=== PATIENT | male | born 1940 | race Caucasian/White ===

== ENCOUNTER 2019-09-23 13:19 | Outpatient (RCR) | payer MEDICARE, OTHER, SELFPAY ==
[2019-09-23 15:08] LABS: Immunofixation, Serum NR
[2019-09-23 15:14] LABS: Basophils % 1.2 %; Eosinophils # 0.2 10^3/uL (0.0-0.8); Eosinophils % 8.1 %; Hematocrit 28.7 % (42.0-52.0); Hemoglobin 8.8 g/dL (11.7-16.6); Lymphocytes % 39.5 %; Mean Corpuscular HGB Conc 30.7 g/dL (30.0-36.0); Mean Corpuscular Volume 91.4 fL (80-94); Mean Platelet Volume 10.5 fL (7.4-10.4); Monocytes # 0.3 10^3/uL (0.2-0.9); Monocytes % 11.7 %; Neutrophils % 39.1 %; Nucleated Red Blood Cells % 0 %; Platelet Count 99 10^3/cmm (130-400); Red Blood Count 3.14 10^6/uL (4.1-5.3); Red Cell Distribution Width 15.1 % (12.1-15.1); White Blood Count 2.5 10^3/uL (4.0-10.0)
[2019-09-23 15:54] LABS: Alanine Aminotransferase 16 U/L (0-41); Albumin Level 4.5 g/dL (3.5-5.2); Alkaline Phosphatase 99 IU/L (40-130); Anion Gap 16.8 (5-19); Aspartate Amino Transferase 26 U/L (0-40); Blood Urea Nitrogen 21 mg/dL (8-23); Calcium 9.9 mg/Dl (8.8-10.2); Carbon Dioxide 26 mmol/L (22-29); Chloride 96 mmol/L (98-107); Ferritin 84 ng/mL (30-400); Globulin 2.3 g/dL (1.3-4.6); Glucose 314 mg/dL (74-106); Iron 30 ug/dL (59-158); Lactate Dehydrogenase 143 U/L (135-225); Percent Saturation 11.9 % (20-50); Potassium 4.8 mmol/L (3.5-5.1); Sodium 134 mmol/L (136-145); Total Bilirubin 0.3 mg/dL (0.15-1.2); Total Iron Binding Capacity 252 mg/dL; Total Protein 6.8 g/dL (6.6-8.7); Unsaturated Iron Binding 222 ug/dL (112-347)
[2019-09-23 16:08] LABS: Erythrocyte Sedimentation Rate 71 mm/hr (0-10)
== END 2019-10-22 23:59 | disposition home or self-care (01) ==
LOC: ONCMED 13:19
PROVIDERS: Family Provider Family Medicine; PCP Family Medicine; Visit Provider Internal Medicine Medical Oncology
DX: D50.9 Iron deficiency anemia, unspecified (principal); I11.0 Hypertensive heart disease with heart failure; I50.9 Heart failure, unspecified; E78.5 Hyperlipidemia, unspecified; E11.9 Type 2 diabetes mellitus without complications; I25.10 Atherosclerotic heart disease of native coronary artery without angina pectoris; J44.9 Chronic obstructive pulmonary disease, unspecified; G47.33 Obstructive sleep apnea (adult) (pediatric); K74.60 Unspecified cirrhosis of liver; K76.6 Portal hypertension; I85.10 Secondary esophageal varices without bleeding; F41.8 Other specified anxiety disorders; F43.10 Post-traumatic stress disorder, unspecified; Z87.891 Personal history of nicotine dependence; Z85.828 Personal history of other malignant neoplasm of skin; K43.9 Ventral hernia without obstruction or gangrene
CPT/HCPCS: 36415; 80053; 82728; 83010; 83540; 83550; 83615; 83883; 84155; 84165; 85025; 85045; 85651; 99205

== ENCOUNTER 2019-09-27 08:17 | Emergency (ER) | payer OTHER, SELFPAY ==
[2019-09-27 08:17] VITALS: BP 151/73; PULSE 64; RESP 18; TEMP 36.3; O2SAT 92
[2019-09-27 08:21] VITALS: BP 119/53; PULSE 72; RESP 20; TEMP 36.6; O2SAT 94; BMI 36.6
--- NOTE | 2019-09-27 08:29 | W.ED.FALL ---
HPI - Fall General: Chief Complaint: Fall Stated Complaint: Fall/right knee pain/ams Time Seen by Provider: 09/27/19 08:29 Source: patient and family Mode of arrival: ambulatory Limitations: no limitations History of Present Illness: HPI Narrative: Patient is a 78-year-old male with a history of liver cirrhosis, diabetes and COPD here with his for complaints of a fall that occurred yesterday and some altered mental status; according to the , patient was walking yesterday with 2 pairs of pants on and states his jeans were baggy causing him to trip and fall and land onto his right knee and hip; patient has been ambulatory since the fall but has complained of pain to these areas; states he may have struck his head during the fall but there was no LOC; became concerned when this morning patient was having trouble checking his blood sugars; states he could not remember how to do this MD complaint: fall Onset (ago): day(s) Fall from: standing Fall witnessed: no Place fall occurred: home Loss of consciousness: None Prolonged down time: no Symptoms prior to fall: none Context: tripped/slipped Location of injury: head (possibly) and other (R hip/R knee) Associated symptoms-after fall: Reports confusion (this AM); Denies abdominal pain, chest pain, difficulty walking, headache(s), lightheadedness, neck pain or vertigo Review of Systems Const: Denies: fever or chills Eyes: Denies: change in vision or blurry vision Card: Denies: chest pain, palpitations, irregular heart rhythm, lightheadedness, syncope or shortness of breath on exertion Resp: Denies: shortness of breath, productive cough or pain on inspiration GI: Denies: abdominal pain, nausea, vomiting, heartburn/indigestion or diarrhea : Denies: difficulty urinating or painful urination Musc: Reports: extremity pain (R hip/R knee) and joint pain; Denies: neck pain or back pain Skin/Breast: Denies: rash Neuro: Reports: confusion (this AM); Denies: headache, numbness in extremities, weakness in extremities, changes in sensation, lack of coordination, difficulty walking, frequent falls, dizziness or vertigo PFSH ED PFSH: Statuses (acute, chronic, etc) shown below reflect problem list status as previously entered and may not be historically accurate Social History Smoking and tobacco status: former smoker Physical Exam Const: COMMON NORMALS: no apparent distress and oriented x3 GENERAL APPEARANCE: cooperative NUTRITIONAL APPEARANCE: obese ORIENTATION/CONSCIOUSNESS: Yes awake, Yes oriented to person, Yes oriented to place and Yes oriented to time Neck/C-Spine: COMMON NORMALS: full ROM, no lymphadenopathy, supple and no meningeal signs CERVICAL SPINE: No cervical spine tenderness Chest: COMMONS NORMALS: inspection of chest normal Resp: COMMON NORMALS: normal respiratory effort EFFORT & INSPECTION: Yes able to speak in complete sentences Cardio: COMMON NORMALS: regular rate and regular rhythm RATE: regular rate RHYTHM: regular rhythm GI: INSPECTION: Yes other (chronic severe abdominal distention from cirrhosis-at baseline) Back/Pelvis: COMMON NORMALS: thoracic and lumbar spine normal to inspection Neuro: COMMON NORMALS: oriented x3 SENSORIUM/ORIENTATION: Yes oriented to person, Yes oriented to place and Yes oriented to time MENINGEAL SIGNS: Yes no meningeal signs Course ED course: care was started on patient; Dr. Maria will also evaluate and see patient Vital Signs: Vital signs: Vital Signs Temperature 97.8 F 09/27/19 08:21 Pulse Rate 71 09/27/19 13:07 Respiratory Rate 16 09/27/19 13:07 Blood Pressure 118/44 09/27/19 13:07 Pulse Oximetry 92 09/27/19 13:07 MDM - Fall Lab Data: Labs: Lab Results 09/27/19 09/27/19 09/27/19 Range/Units 08:50 08:50 08:50 WBC 4.7 (4.0-10.0) 10^3/ uL RBC 3.02 L (4.1-5.3) 10^6/u L Hgb 8.4 L (11.7-16.6) g/dL Hct 27.4 L (42.0-52.0) % MCV 90.7 (80-94) fL MCH 27.8 L (28.0-34.0) pg MCHC 30.7 (30.0-36.0) g/dL RDW 14.7 (12.1-15.1) % Plt Count 111 L (130-400) 10^3/c mm MPV 10.5 H (7.4-10.4) fL Neut % (Auto) 54.7 % Lymph % (Auto) 27.0 % Turner % (Auto) 12.6 % Eos % (Auto) 4.7 % Baso % (Auto) 0.4 % Neut # (Auto) 2.6 (1.8-7.7) 10^3/u L Lymph # (Auto) 1.3 (0.8-4.8) 10^3/u L Turner # (Auto) 0.6 (0.2-0.9) 10^3/u L Eos # (Auto) 0.2 (0.0-0.8) 10^3/u L Baso # (Auto) 0.0 (0.0-0.1) 10^3/u L Nucleated RBC % (a uto) 0 % Nucleated RBCs # 0.0 /100WBC PT (10.5-13.3) SECO NDS INR (0.8-1.2) APTT (23.9-36.7) SECO NDS Sodium 133 L (136-145) mmol/L Potassium 5.0 (3.5-5.1) mmol/L Chloride 94 L (98-107) mmol/L Carbon Dioxide 27 (22-29) mmol/L Anion Gap 17.0 (5-19) BUN 28 H (8-23) mg/dL Creatinine 1.8 H (0.7-1.2) mg/dL Glucose 191 H (74-106) mg/dL Lactate (0.5-2.2) mmol/L Calcium 9.9 (8.8-10.2) mg/Dl Total Bilirubin 0.5 (0.15-1.2) mg/dL AST 28 (0-40) U/L ALT 16 (0-41) U/L Alkaline Phosphata se 93 (40-130) IU/L Ammonia 44 (16-60) umol/L Total Protein 7.0 (6.6-8.7) g/dL Albumin 4.6 (3.5-5.2) g/dL Globulin 2.4 (1.3-4.6) g/dL Lipase (13-60) U/L TSH (0.27-4.20) uIU/ mL Urine Color (Yellow) Urine Appearance (CLEAR) Urine pH (5-7) Ur Specific Gravit y (1.005-1.030) Urine Protein (Negative) Urine Glucose (UA) (Normal) Urine Ketones (Negative) Urine Occult Blood (Negative) Urine Nitrate (Negative) Urine Bilirubin (NEGATIVE) Urine Urobilinogen (Negative) mg/dL Ur Leukocyte Sindy ase (Negative) Salicylates (3-10) mg/dL Acetaminophen (10-30) ug/mL Ethyl Alcohol (0-10) mg/dL Serum Ketones (Negative) 09/27/19 09/27/19 09/27/19 Range/Units 08:50 08:50 08:50 WBC (4.0-10.0) 10^3/ uL RBC (4.1-5.3) 10^6/u L Hgb (11.7-16.6) g/dL Hct (42.0-52.0) % MCV (80-94) fL MCH (28.0-34.0) pg MCHC (30.0-36.0) g/dL RDW (12.1-15.1) % Plt Count (130-400) 10^3/c mm MPV (7.4-10.4) fL Neut % (Auto) % Lymph % (Auto) % Turner % (Auto) % Eos % (Auto) % Baso % (Auto) % Neut # (Auto) (1.8-7.7) 10^3/u L Lymph # (Auto) (0.8-4.8) 10^3/u L Turner # (Auto) (0.2-0.9) 10^3/u L Eos # (Auto) (0.0-0.8) 10^3/u L Baso # (Auto) (0.0-0.1) 10^3/u L Nucleated RBC % (a uto) % Nucleated RBCs # /100WBC PT 14.50 H (10.5-13.3) SECO NDS INR 1.09 (0.8-1.2) APTT 33.0 (23.9-36.7) SECO NDS Sodium (136-145) mmol/L Potassium (3.5-5.1) mmol/L Chloride (98-107) mmol/L Carbon Dioxide (22-29) mmol/L Anion Gap (5-19) BUN (8-23) mg/dL Creatinine (0.7-1.2) mg/dL Glucose (74-106) mg/dL Lactate 1.8 (0.5-2.2) mmol/L Calcium (8.8-10.2) mg/Dl Total Bilirubin (0.15-1.2) mg/dL AST (0-40) U/L ALT (0-41) U/L Alkaline Phosphata se (40-130) IU/L Ammonia (16-60) umol/L Total Protein (6.6-8.7) g/dL Albumin (3.5-5.2) g/dL Globulin (1.3-4.6) g/dL Lipase 38 (13-60) U/L TSH (0.27-4.20) uIU/ mL Urine Color (Yellow) Urine Appearance (CLEAR) Urine pH (5-7) Ur Specific Gravit y (1.005-1.030) Urine Protein (Negative) Urine Glucose (UA) (Normal) Urine Ketones (Negative) Urine Occult Blood (Negative) Urine Nitrate (Negative) Urine Bilirubin (NEGATIVE) Urine Urobilinogen (Negative) mg/dL Ur Leukocyte Sindy ase (Negative) Salicylates (3-10) mg/dL Acetaminophen (10-30) ug/mL Ethyl Alcohol (0-10) mg/dL Serum Ketones (Negative) 09/27/19 09/27/19 09/27/19 Range/Units 08:50 08:50 10:25 WBC (4.0-10.0) 10^3/ uL RBC (4.1-5.3) 10^6/u L Hgb (11.7-16.6) g/dL Hct (42.0-52.0) % MCV (80-94) fL MCH (28.0-34.0) pg MCHC (30.0-36.0) g/dL RDW (12.1-15.1) % Plt Count (130-400) 10^3/c mm MPV (7.4-10.4) fL Neut % (Auto) % Lymph % (Auto) % Turner % (Auto) % Eos % (Auto) % Baso % (Auto) % Neut # (Auto) (1.8-7.7) 10^3/u L Lymph # (Auto) (0.8-4.8) 10^3/u L Turner # (Auto) (0.2-0.9) 10^3/u L Eos # (Auto) (0.0-0.8) 10^3/u L Baso # (Auto) (0.0-0.1) 10^3/u L Nucleated RBC % (a uto) % Nucleated RBCs # /100WBC PT (10.5-13.3) SECO NDS INR (0.8-1.2) APTT (23.9-36.7) SECO NDS Sodium (136-145) mmol/L Potassium (3.5-5.1) mmol/L Chloride (98-107) mmol/L Carbon Dioxide (22-29) mmol/L Anion Gap (5-19) BUN (8-23) mg/dL Creatinine (0.7-1.2) mg/dL Glucose (74-106) mg/dL Lactate (0.5-2.2) mmol/L Calcium (8.8-10.2) mg/Dl Total Bilirubin (0.15-1.2) mg/dL AST (0-40) U/L ALT (0-41) U/L Alkaline Phosphata se (40-130) IU/L Ammonia (16-60) umol/L Total Protein (6.6-8.7) g/dL Albumin (3.5-5.2) g/dL Globulin (1.3-4.6) g/dL Lipase (13-60) U/L TSH 7.39 H (0.27-4.20) uIU/ mL Urine Color Yellow (Yellow) Urine Appearance Clear (CLEAR) Urine pH 5 (5-7) Ur Specific Gravit y 1.010 (1.005-1.030) Urine Protein Neg (Negative) Urine Glucose (UA) Norm (Normal) Urine Ketones Negative (Negative) Urine Occult Blood Neg (Negative) Urine Nitrate Negative (Negative) Urine Bilirubin Neg (NEGATIVE) Urine Urobilinogen Norm (Negative) mg/dL Ur Leukocyte Sindy ase Negative (Negative) Salicylates < 0.3 L (3-10) mg/dL Acetaminophen < 5.0 L (10-30) ug/mL Ethyl Alcohol < 10 (0-10) mg/dL Serum Ketones Negative (Negative) Imaging Data^: CT Head: Radiologist's impression: [facility] [address] [place] [address] CT Scan Report Signed Patient: Parish Brewer MR#: [id number] : 1940 Acct:[id number] Age/Sex: 78 / M ADM Date: 09/27/19 Loc: ER Attending Dr: Ordering Physician: Jessica Negro Date of Service: 09/27/19 Procedure(s): CT head wo con* [id number] Accession Number(s): [id number] cc: Jessica Negro PROCEDURE INFORMATION: Exam: CT Head Without Contrast Exam date and time: 09/27/2019 8:43 AM Age: 78 years old Clinical indication: Injury or trauma; Patient HX: Fall today. Patient seems altered. Unable to obtain history. TECHNIQUE: Imaging protocol: Computed tomography of the head without contrast. Total DLP: 870.74 mGy-cm Radiation optimization: All CT scans at this facility use at least one of these dose optimization techniques: automated exposure control; mA and/or kV adjustment per patient size (includes targeted exams where dose is matched to clinical indication); or iterative reconstruction. COMPARISON: CT head wo con* [id number] 01/20/2019 11:22 PM FINDINGS: Brain: No acute post traumatic brain injury. 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 Symmetric prominence of the cortical sulci. Ventricles: Stable configuration of the ventricles. Bones/joints: No acute calvarial injury. Sinuses: Left maxillary sinus inflammatory change. Mastoid air cells: No mastoid effusion. Soft tissues: No significant scalp hematoma. Vasculature: Vascular, subarachnoid, and dural calcification. CT/CT head wo con* [id number] IMPRESSION: No acute post traumatic brain injury. Radiation Dose CTDIVOL = (mGy): DLP = 870.74 (mGy-cm) Dictated By: Berlin Henderson MD 09/27/19 0943 Signed By: Berlin Henderson MD 09/27/[address] cervical : Radiologist's impression: [facility] [address] [place] [address] CT Scan Report Signed Patient: Parish Brewer MR#: [id number] : 1940 Acct:[id number] Age/Sex: 78 / M ADM Date: 09/27/19 Loc: ER Attending Dr: Ordering Physician: Jessica Negro Date of Service: 09/27/19 Procedure(s): CT cervical spin wo con* [id number] Accession Number(s): [id number] cc: Jessica Negro PROCEDURE INFORMATION: Exam: CT Cervical Spine Without Contrast Exam date and time: 09/27/2019 8:43 AM Age: 78 years old Clinical indication: Injury or trauma; Initial encounter; Blunt trauma; Patient HX: Fall today. Patient seems altered. Unable to obtain history. TECHNIQUE: Imaging protocol: Computed tomography images of the cervical spine without contrast. Total DLP: 833.14 mGy-cm Radiation optimization: All CT scans at this facility use at least one of these dose optimization techniques: automated exposure control; mA and/or kV adjustment per patient size (includes targeted exams where dose is matched to clinical indication); or iterative reconstruction. COMPARISON: CT Cervical Spine wo* [id number] 03/08/2017 3:59 PM FINDINGS: The examination performed is mildly degraded by motion artifact. Vertebrae: No acute bony injury in the visualized cervical spine. 1 mm anterolisthesis of C3 on C4. Diminished cervical lordosis. Discs/Spinal canal/Neural foramina: Degenerative change and disc bulging.Note that assessment of disc, spinal cord, and nerve root pathology is limited in the absence of intrathecal contrast. Soft tissues: Synovial hypertrophy and calcification about the atlantoaxial joint. Lungs: Apical interstitial and asymmetric airspace disease. Left apical calcification. Vasculature: Vascular calcification. CT/CT cervical spin wo con* [id number] IMPRESSION: 1. No acute bony injury in the visualized cervical spine. 2. 1 mm anterolisthesis of C3 on C4. Radiation Dose CTDIVOL = (mGy): DLP = 833.14 (mGy-cm) Dictated By: Berlin Henderson MD 09/27/19 0947 Signed By: Berlin Henderson MD 09/27/19 0948 L knee: Radiologist's impression: [place] [address] XRay Report Signed Patient: Parish Brewer MR#: [id number] : 1940 Acct:[id number] Age/Sex: 78 / M ADM Date: 09/27/19 Loc: ER Attending Dr: Ordering Physician: Jessica Negro Date of Service: 09/27/19 Procedure(s): XR knee RT 3V* [id number] Accession Number(s): [id number] cc: Jessica Negro PROCEDURE INFORMATION: Exam: XR Right Knee Exam date and time: 09/27/2019 9:48 AM Age: 78 years old Clinical indication: Injury or trauma; Fall; Initial encounter; Blunt trauma; Knee; Right TECHNIQUE: Imaging protocol: XR Right knee. Views: 3 views. COMPARISON: CR Knee 3 views, RIGHT* [id number] 06/17/2017 12:56 PM FINDINGS: Bones/joints: No acute bone injury or malalignment. Degenerative change and joint effusion. Soft tissues: Anterior soft tissue swelling. Vasculature: Vascular calcification. XR/XR knee RT 3V* [id number] IMPRESSION: No acute bone injury or malalignment. Dictated By: Berlin Henderson MD 09/27/19 1002 Signed By: Berlin Henderson MD 09/27/19 1004 R shoulder : Radiologist's impression: [address] [address] XRay Report Signed Patient: Parihs Brewer MR#: [id number] : 1940 Acct:[id number] Age/Sex: 78 / M ADM Date: 09/27/19 Loc: ER Attending Dr: Ordering Physician: Jessica Negro Date of Service: 09/27/19 Procedure(s): XR shoulder RT min 2V* [id number] Accession Number(s): [id number] cc: Jessica Negro PROCEDURE INFORMATION: Exam: XR Right Shoulder Exam date and time: 09/27/2019 10:04 AM Age: 78 years old Clinical indication: Injury or trauma; Fall; Initial encounter; Blunt trauma (contusions or hematomas; Shoulder; Right; Injury date: ; Additional info: Fall/trauma TECHNIQUE: Imaging protocol: XR Right shoulder. Views: 2 or more views. COMPARISON: No relevant prior studies available. FINDINGS: Bones/joints: Osteopenia and degenerative change. Displaced fracture of the distal right clavicle, believed to be chronic. Clinical correlation recommended. Lungs: Interstitial prominence in the visualized right lung and poorly defined subpleural density. Soft tissues: No radiopaque foreign body. XR/XR shoulder RT min 2V* [id number] IMPRESSION: 1. Displaced fracture of the distal right clavicle, believed to be chronic. Clinical correlation recommended. 2. Additional findings as described above. Dictated By: Berlin Henderson MD 09/27/19 1011 Signed By: Berlin Henderson MD 09/27/19 1013 R hip/pelvis: Radiologist's impression: [place] [address] XRay Report Signed Patient: Parish Brewer MR#: [id number] : 1940 Acct:[id number] Age/Sex: 78 / M ADM Date: 09/27/19 Loc: ER Attending Dr: Ordering Physician: Jessica Negro Date of Service: 09/27/19 Procedure(s): XR hip RT 2-3V wo/w pel* [id number] Accession Number(s): [id number] cc: Jessica Negro PROCEDURE INFORMATION: Exam: XR Right Hip with Pelvis when Performed Exam date and time: 09/27/2019 10:00 AM Age: 78 years old Clinical indication: Injury or trauma; Fall; Initial encounter; Blunt trauma (contusions or hematomas); Right; Hip; Injury date: TECHNIQUE: Imaging protocol: XR Right hip with pelvis when performed. Views: 1 view. COMPARISON: CT abdomen pelvis w con* [id number] 02/21/2019 9:15 PM FINDINGS: Bones/joints: No acute bony injury or malalignment. Degenerative change. Soft tissues: Skin fold. Vasculature: Vascular calcification. XR/XR hip RT 2-3V wo/w pel* [id number] IMPRESSION: No acute bony injury or malalignment. Dictated By: Berlin Henderson MD 09/27/19 1012 Signed By: Berlin Henderson MD 09/27/19 1014 Discharge Plan Discharge Patient Disposition: Home, Self-Care Clinical Impression: Fall Qualifiers: Encounter type: initial encounter Qualified Code(s): W19.XXXA - Unspecified fall, initial encounter Clavicle fracture Qualifiers: Encounter type: subsequent encounter Clavicle location: lateral end Fracture type: closed Fracture alignment: nondisplaced Laterality: right Fracture healing: with nonunion Qualified Code(s): S42.034K - Nondisplaced fracture of lateral end of right clavicle, subsequent encounter for fracture with nonunion Acute knee pain Qualifiers: Laterality: right Qualified Code(s): M25.561 - Pain in right knee Condition: Stable Prescriptions: No Action Multiple Vitamins Tablet 1 tab PO DAILY RF: 0 Lasix 40 mg Tablet See Rx Instructions .ROUTE .COMPLEX RF: 0 albuterol sulfate 2.5 mg /3 mL (0.083 %) Solution For Nebulization 2.5 mg INHALATION Q4H PRN (Reason: Shortness Of Breath) RF: 0 trazodone 50 mg Tablet 50 mg PO BEDTIME RF: 0 Aspir-81 81 mg Tablet,Delayed Release (Dr/Ec) 81 mg PO DAILY RF: 0 spironolactone 25 mg Tablet 25 mg PO DAILY RF: 0 pravastatin 10 mg Tablet 10 mg PO BEDTIME RF: 0 Norvasc 10 mg Tablet 10 mg PO BEDTIME RF: 0 Protonix 40 mg Tablet,Delayed Release (Dr/Ec) 40 mg PO DAILY RF: 0 allopurinol 300 mg Tablet 300 mg PO BEDTIME RF: 0 gabapentin 100 mg Capsule See Rx Instructions .ROUTE .COMPLEX RF: 0 ProAir HFA 90 mcg/actuation Hfa Aerosol Inhaler 2 puff INHALATION QID PRN (Reason: Shortness Of Breath) RF: 0 Paxil 40 mg Tablet 40 mg PO BEDTIME RF: 0 propranolol 20 mg Tablet 20 mg PO BID RF: 0 Flonase Allergy Relief 50 mcg/actuation Oxford,Suspension 1 spray INTRANASAL DAILY PRN (Reason: unknown) RF: 0 Novolog Flexpen U-100 Insulin 100 unit/mL (3 mL) Insulin Pen See Rx Instructions .ROUTE .COMPLEX RF: 0 Symbicort 160-4.5 mcg/actuation Hfa Aerosol Inhaler 2 puff INHALATION BID RF: 0 Lantus Solostar U-100 Insulin 100 unit/mL (3 mL) Insulin Pen 46 unit SUBCUT BEDTIME RF: 0 oxycodone 10 mg Tablet 5 mg PO BID PRN (Reason: Pain) RF: 0 Spiriva Respimat 2.5 mcg/actuation Mist 1 puff INHALATION DAILY RF: 0 potassium chloride 20 mEq Tablet Extended Release 20 meq PO DAILY RF: 0 Robaxin-750 500 mg PO BID PRN (Reason: Spasms) RF: 0 Referrals: Sae Silva MD [Primary Care Provider] - Discharge Diet: Usual diet Discharge Activity: Increase activity as tolerated Discharge Date/Time: 09/27/19 13:14 Coding Level of Care Code ED On Call for Chg Fwd Exam Problem Focused
--- NOTE | 2019-09-27 08:40 | USCV_ITS ---
Parish Brewer Age: 78 Gender: M : 1940 Exam Date: 09/27/2019 08:46 Ordering Phys: Jessica Negro Technologist: Vangie Ricardo Exam Location: [facility] Indication: TRAUMA/ SWELLING PROCEDURES: Venous duplex imaging was performed in only the right lower extremity. The following venous structures were evaluated: common femoral vein, profunda vein, proximal portion of the greater saphenous vein, superficial femoral vein, and the popliteal vein. In addition, the posterior tibial and peroneal trunk were evaluated. Serial compression, augmentation maneuvers, and spectral Doppler flow evaluation were performed. FINDINGS: Normal 2-D Doppler and augmentation and compressibility throughout the lower extremity venous structures. Additional imaging through the proximal calf veins also reveals no thrombus. Limited evaluation of the greater saphenous vein is patent with no thrombus.. CONCLUSIONS No evidence of right lower extremity DVT. Valente Valle MD (Electronically Signed) Final Date: 27 September 2019 12:06 S
--- NOTE | 2019-09-27 08:40 | XRR_ITS ---
PROCEDURE INFORMATION: Exam: XR Right Knee Exam date and time: 09/27/2019 9:48 AM Age: 78 years old Clinical indication: Injury or trauma; Fall; Initial encounter; Blunt trauma; Knee; Right TECHNIQUE: Imaging protocol: XR Right knee. Views: 3 views. COMPARISON: CR Knee 3 views, RIGHT* [id number] 06/17/2017 12:56 PM FINDINGS: Bones/joints: No acute bone injury or malalignment. Degenerative change and joint effusion. Soft tissues: Anterior soft tissue swelling. Vasculature: Vascular calcification. XR/XR knee RT 3V* [id number] IMPRESSION: No acute bone injury or malalignment.
--- NOTE | 2019-09-27 08:40 | XRR_ITS ---
PROCEDURE INFORMATION: Exam: XR Right Hip with Pelvis when Performed Exam date and time: 09/27/2019 10:00 AM Age: 78 years old Clinical indication: Injury or trauma; Fall; Initial encounter; Blunt trauma (contusions or hematomas); Right; Hip; Injury date: TECHNIQUE: Imaging protocol: XR Right hip with pelvis when performed. Views: 1 view. COMPARISON: CT abdomen pelvis w con* [id number] 02/21/2019 9:15 PM FINDINGS: Bones/joints: No acute bony injury or malalignment. Degenerative change. Soft tissues: Skin fold. Vasculature: Vascular calcification. XR/XR hip RT 2-3V wo/w pel* [id number] IMPRESSION: No acute bony injury or malalignment.
--- NOTE | 2019-09-27 08:41 | CTR_ITS ---
PROCEDURE INFORMATION: Exam: CT Head Without Contrast Exam date and time: 09/27/2019 8:43 AM Age: 78 years old Clinical indication: Injury or trauma; Patient HX: Fall today. Patient seems altered. Unable to obtain history. TECHNIQUE: Imaging protocol: Computed tomography of the head without contrast. Total DLP: 870.74 mGy-cm Radiation optimization: All CT scans at this facility use at least one of these dose optimization techniques: automated exposure control; mA and/or kV adjustment per patient size (includes targeted exams where dose is matched to clinical indication); or iterative reconstruction. COMPARISON: CT head wo con* [id number] 01/20/2019 11:22 PM FINDINGS: Brain: No acute post traumatic brain injury. 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 Symmetric prominence of the cortical sulci. Ventricles: Stable configuration of the ventricles. Bones/joints: No acute calvarial injury. Sinuses: Left maxillary sinus inflammatory change. Mastoid air cells: No mastoid effusion. Soft tissues: No significant scalp hematoma. Vasculature: Vascular, subarachnoid, and dural calcification. CT/CT head wo con* [id number] IMPRESSION: No acute post traumatic brain injury. Radiation Dose CTDIVOL = (mGy): DLP = 870.74 (mGy-cm)
--- NOTE | 2019-09-27 08:41 | XRR_ITS ---
PROCEDURE INFORMATION: Exam: XR Chest, 1 View Exam date and time: 09/27/2019 9:52 AM Age: 78 years old Clinical indication: Cough; Additional info: Cough/congestion TECHNIQUE: Imaging protocol: XR of the chest Views: 1 view. COMPARISON: CR Chest 1 [place] [id number] 09/07/2019 8:42 AM FINDINGS: Lungs: Interstitial prominence and mild left basilar airspace/pleural disease. Heart/Mediastinum: Borderline cardiomegaly and prominent epicardial fat. Bones/joints: Osteopenia and degenerative change. XR/XR chest 1V portable [id number] IMPRESSION: Interstitial prominence and mild left basilar airspace/pleural disease.
--- NOTE | 2019-09-27 08:41 | CTR_ITS ---
PROCEDURE INFORMATION: Exam: CT Cervical Spine Without Contrast Exam date and time: 09/27/2019 8:43 AM Age: 78 years old Clinical indication: Injury or trauma; Initial encounter; Blunt trauma; Patient HX: Fall today. Patient seems altered. Unable to obtain history. TECHNIQUE: Imaging protocol: Computed tomography images of the cervical spine without contrast. Total DLP: 833.14 mGy-cm Radiation optimization: All CT scans at this facility use at least one of these dose optimization techniques: automated exposure control; mA and/or kV adjustment per patient size (includes targeted exams where dose is matched to clinical indication); or iterative reconstruction. COMPARISON: CT Cervical Spine wo* [id number] 03/08/2017 3:59 PM FINDINGS: The examination performed is mildly degraded by motion artifact. Vertebrae: No acute bony injury in the visualized cervical spine. 1 mm anterolisthesis of C3 on C4. Diminished cervical lordosis. Discs/Spinal canal/Neural foramina: Degenerative change and disc bulging.Note that assessment of disc, spinal cord, and nerve root pathology is limited in the absence of intrathecal contrast. Soft tissues: Synovial hypertrophy and calcification about the atlantoaxial joint. Lungs: Apical interstitial and asymmetric airspace disease. Left apical calcification. Vasculature: Vascular calcification. CT/CT cervical spin wo con* [id number] IMPRESSION: 1. No acute bony injury in the visualized cervical spine. 2. 1 mm anterolisthesis of C3 on C4. Radiation Dose CTDIVOL = (mGy): DLP = 833.14 (mGy-cm)
--- NOTE | 2019-09-27 08:43 | XRR_ITS ---
PROCEDURE INFORMATION: Exam: XR Right Shoulder Exam date and time: 09/27/2019 10:04 AM Age: 78 years old Clinical indication: Injury or trauma; Fall; Initial encounter; Blunt trauma (contusions or hematomas; Shoulder; Right; Injury date: ; Additional info: Fall/trauma TECHNIQUE: Imaging protocol: XR Right shoulder. Views: 2 or more views. COMPARISON: No relevant prior studies available. FINDINGS: Bones/joints: Osteopenia and degenerative change. Displaced fracture of the distal right clavicle, believed to be chronic. Clinical correlation recommended. Lungs: Interstitial prominence in the visualized right lung and poorly defined subpleural density. Soft tissues: No radiopaque foreign body. XR/XR shoulder RT min 2V* [id number] IMPRESSION: 1. Displaced fracture of the distal right clavicle, believed to be chronic. Clinical correlation recommended. 2. Additional findings as described above.
[2019-09-27 08:55] LABS: Basophils % 0.4 %; Eosinophils # 0.2 10^3/uL (0.0-0.8); Eosinophils % 4.7 %; Hematocrit 27.4 % (42.0-52.0); Hemoglobin 8.4 g/dL (11.7-16.6); Lymphocytes # 1.3 10^3/uL (0.8-4.8); Mean Corpuscular HGB Conc 30.7 g/dL (30.0-36.0); Mean Corpuscular Hemoglobin 27.8 pg (28.0-34.0); Mean Corpuscular Volume 90.7 fL (80-94); Mean Platelet Volume 10.5 fL (7.4-10.4); Monocytes # 0.6 10^3/uL (0.2-0.9); Monocytes % 12.6 %; Neutrophils # 2.6 10^3/uL (1.8-7.7); Neutrophils % 54.7 %; Nucleated Red Blood Cells % 0 %; Platelet Count 111 10^3/cmm (130-400); Red Blood Count 3.02 10^6/uL (4.1-5.3); Red Cell Distribution Width 14.7 % (12.1-15.1); White Blood Count 4.7 10^3/uL (4.0-10.0)
--- NOTE | 2019-09-27 08:58 | PC.NURSE ---
Patient resting in bed with daughter at bedside. Patient placed in gown and placed on oxygen at ordered home dose of 3L/min. Lungs auscultated and expiratory wheezing is noted bilaterally anterior and bilaterally in the upper lobes. Wet cough and SOB with minimal activity is noted. Bruising is noted to the left mid, inner forearm and left lateral wrist. Bruising noted to the right lateral wrist. Bruising and swelling noted to the right knee with swelling noted from the right need down to the right foot. Small abrasion noted on the left cheek bone. Patient daughter states that the patient had an unwitnessed fall on friday due to tripping over his pants, he hit is cheek on the door frame and fell onto the right side of his body. Patient also c/o increased pain in the right shoulder/clavicle area. IV placed following assessment. Blood drawn from IV prior to fluid start - [place] set, 1 extra purple, culture, and serrano top drawn at this time with lab present. Lab labelled and took to lab for receiving and processing. Patient and daughter notified of the need for a urine sample, collection kit provided, call light to be turned on once he is done providing sample.
--- NOTE | 2019-09-27 09:07 | PC.NURSE ---
Ultrasound at bedside. Patient oxygen decreased to 85% with accurate waveform noted. Oxygen increased to 5L/min at this time. Patient saturation increased to 92% at this time. Patient noted to be mouth breathing, patient educated to breath in through nose and out through mouth; understanding verbalized, patient performed breathing technique appropriately. Will continue to monitor.
[2019-09-27 09:11] LABS: Lipase 38 U/L (13-60)
[2019-09-27 09:12] LABS: Alanine Aminotransferase 16 U/L (0-41); Albumin Level 4.6 g/dL (3.5-5.2); Alkaline Phosphatase 93 IU/L (40-130); Aspartate Amino Transferase 28 U/L (0-40); Blood Urea Nitrogen 28 mg/dL (8-23); Calcium 9.9 mg/Dl (8.8-10.2); Carbon Dioxide 27 mmol/L (22-29); Chloride 94 mmol/L (98-107); Globulin 2.4 g/dL (1.3-4.6); Glucose 191 mg/dL (74-106); Sodium 133 mmol/L (136-145); Total Bilirubin 0.5 mg/dL (0.15-1.2)
[2019-09-27 09:13] LABS: Ammonia 44 umol/L (16-60); INR 1.09 (0.8-1.2); Lactate (Lactic Acid level) 1.8 mmol/L (0.5-2.2)
--- NOTE | 2019-09-27 09:55 | ED_ITS ---
Entered by Therese Gonzalez, acting as scribe for Mario Maria DO Sep 27, 2019 08:17 HPI - Fall General: Chief Complaint: Fall Stated Complaint: Fall/right knee pain/ams Time Seen by Provider: 09/27/19 08:29 History of Present Illness: HPI Narrative: 78 yo male presents with fall and altered mental status. Pt fell 2 days ago, he has bruising all over his body. Pt is only taking aspirin. Pt might of hit his head and face. states that pt i s on oxygen at all times, he has COPD. Pt was admitted last month for COPD exacerbation. Pt has had a non productive cough. Associated symptoms-after fall: Reports confusion, difficulty walking and headache(s); Denies abdominal pain, chest pain, hematuria, neck pain or vertigo Review of Systems General: Reports: other (Family present and assist with review of systems.) Const: Denies: fever, chills, body aches, fatigue, malaise or night sweats Eyes: Denies: change in vision or blurry vision ENMT: Denies: throat pain, oral sores/lesions, dental pain, nasal discharge or nasal congestion Card: Reports: shortness of breath when lying down; Denies: chest pain, palpitations, irregular heart rhythm, edema or leg pain with exertion Resp: Reports: shortness of breath, non-productive cough and wheezing; Denies: productive cough GI: Denies: abdominal pain, nausea, vomiting, vomiting blood, coffee grounds in vomit, difficulty swallowing, heartburn/indigestion, diarrhea, constipation, cramping, blood in stool or black tarry stool : Denies: flank pain, difficulty urinating, painful urination, urinary frequency, urinary urgency, urinary incontinence or blood in urine Musc: Denies: neck pain, back pain, extremity pain, extremity swelling, joint pain or joint swelling Skin/Breast: Denies: rash, itching or redness Neuro: Reports: headache, difficulty walking and confusion; Denies: numbness in extremities, weakness in extremities, changes in sensation, lack of coordination, frequent falls, dizziness or vertigo Endo: Denies: excessive urination, excessive thirst, tired all the time or cold intolerance Fito/Lymph: Denies: easy bruising, easy bleeding, petechiae, enlarged lymph nodes or tender lymph nodes PFSH ED PFSH: Statuses (acute, chronic, etc) shown below reflect problem list status as previously entered and may not be historically accurate Social History Smoking and tobacco status: former smoker Physical Exam Const: COMMON NORMALS: average body habitus and alert GENERAL APPEARANCE: cooperative, comfortable, well developed and lethargic NUTRITIONAL APPEARANCE: obese ORIENTATION/CONSCIOUSNESS: Yes awake, Yes oriented to person, Yes oriented to place and Yes lethargic HENMT: COMMON NORMALS: normocephalic, head/scalp atraumatic, EAC's normal, TM's normal bilaterally, external nose normal, moist oral mucous membranes and oropharynx normal HEAD & SCALP: normocephalic and atraumatic NOSE: external nose normal EXTERNAL AUDITORY CANAL: EAC's normal TYMPANIC MEMBRANE: TM's normal bilaterally MOUTH: oral and palatal mucosa normal, lip normal and tongue normal THROAT: posterior oropharynx normal and tonsils normal Eye: COMMON NORMALS: PERRL, EOMs intact bilaterally, conjunctivae normal and no scleral icterus CONJUNCTIVA: Yes conjunctivae normal PUPIL: Yes PERRL Neck/C-Spine: COMMON NORMALS: full ROM, no lymphadenopathy, supple, no meningeal signs and thyroid normal THYROID: thyroid normal and asymmetrical Lymph: LYMPHATIC: no lymphadenopathy noted Resp: COMMON NORMALS: normal respiratory effort, no retractions, no use of accessory muscles and clear to auscultation bilaterally AUSCULTATION: clear to auscultation bilaterally Cardio: COMMON NORMALS: regular rate and regular rhythm RATE: regular rate RHYTHM: regular rhythm HEART SOUNDS: no murmurs GI: COMMON NORMALS: normal to inspection, nondistended, normoactive bowel sounds, soft to palpation and no hepatosplenomegaly PALPATION: Yes soft and Yes no hepatosplenomegaly : COMMON NORMALS: Yes no CVA tenderness BLADDER/KIDNEY EXAM: Yes no CVA tenderness Back/Pelvis: COMMON NORMALS: no CVA tenderness LUMBAR SPINE/LOWER BACK: Yes normal to inspection Extremity: NARRATIVE EXTREMITY EXAM: Bruising on the extremities particularly the right lower leg at the knee. RIGHT LOWER EXTREMITY: Yes hip joint and Yes lower leg Neuro: SENSORIUM/ORIENTATION: Yes alert, Yes oriented to person, Yes oriented to place and Yes lethargic MENINGEAL SIGNS: Yes no meningeal signs Course ED course: No fractures. CT head negative. Patient reports feeling much better his states he is back to his normal mental status offered observation noted his anemia they do not wish to be discharged to be admitted no follow-up with his primary care doctor he has had anemia in the past according to his previous labs have him recheck later on this week his primary care doctor. Vital Signs: Vital signs: Vital Signs Temperature 97.8 F 09/27/19 08:21 Pulse Rate 71 09/27/19 13:07 Respiratory Rate 16 09/27/19 13:07 Blood Pressure 118/44 09/27/19 13:07 Pulse Oximetry 92 09/27/19 13:07 MDM - Fall Lab Data: Labs: Lab Results 09/27/19 09/27/19 09/27/19 Range/Units 08:50 08:50 08:50 WBC 4.7 (4.0-10.0) 10^3/ uL RBC 3.02 L (4.1-5.3) 10^6/u L Hgb 8.4 L (11.7-16.6) g/dL Hct 27.4 L (42.0-52.0) % MCV 90.7 (80-94) fL MCH 27.8 L (28.0-34.0) pg MCHC 30.7 (30.0-36.0) g/dL RDW 14.7 (12.1-15.1) % Plt Count 111 L (130-400) 10^3/c mm MPV 10.5 H (7.4-10.4) fL Neut % (Auto) 54.7 % Lymph % (Auto) 27.0 % Wetzel % (Auto) 12.6 % Eos % (Auto) 4.7 % Baso % (Auto) 0.4 % Neut # (Auto) 2.6 (1.8-7.7) 10^3/u L Lymph # (Auto) 1.3 (0.8-4.8) 10^3/u L Wetzel # (Auto) 0.6 (0.2-0.9) 10^3/u L Eos # (Auto) 0.2 (0.0-0.8) 10^3/u L Baso # (Auto) 0.0 (0.0-0.1) 10^3/u L Nucleated RBC % (a uto) 0 % Nucleated RBCs # 0.0 /100WBC PT (10.5-13.3) SECO NDS INR (0.8-1.2) APTT (23.9-36.7) SECO NDS Sodium 133 L (136-145) mmol/L Potassium 5.0 (3.5-5.1) mmol/L Chloride 94 L (98-107) mmol/L Carbon Dioxide 27 (22-29) mmol/L Anion Gap 17.0 (5-19) BUN 28 H (8-23) mg/dL Creatinine 1.8 H (0.7-1.2) mg/dL Glucose 191 H (74-106) mg/dL Lactate (0.5-2.2) mmol/L Calcium 9.9 (8.8-10.2) mg/Dl Total Bilirubin 0.5 (0.15-1.2) mg/dL AST 28 (0-40) U/L ALT 16 (0-41) U/L Alkaline Phosphata se 93 (40-130) IU/L Ammonia 44 (16-60) umol/L Total Protein 7.0 (6.6-8.7) g/dL Albumin 4.6 (3.5-5.2) g/dL Globulin 2.4 (1.3-4.6) g/dL Lipase (13-60) U/L TSH (0.27-4.20) uIU/ mL Urine Color (Yellow) Urine Appearance (CLEAR) Urine pH (5-7) Ur Specific Gravit y (1.005-1.030) Urine Protein (Negative) Urine Glucose (UA) (Normal) Urine Ketones (Negative) Urine Occult Blood (Negative) Urine Nitrate (Negative) Urine Bilirubin (NEGATIVE) Urine Urobilinogen (Negative) mg/dL Ur Leukocyte Sindy ase (Negative) Salicylates (3-10) mg/dL Acetaminophen (10-30) ug/mL Ethyl Alcohol (0-10) mg/dL Serum Ketones (Negative) 09/27/19 09/27/19 09/27/19 Range/Units 08:50 08:50 08:50 WBC (4.0-10.0) 10^3/ uL RBC (4.1-5.3) 10^6/u L Hgb (11.7-16.6) g/dL Hct (42.0-52.0) % MCV (80-94) fL MCH (28.0-34.0) pg MCHC (30.0-36.0) g/dL RDW (12.1-15.1) % Plt Count (130-400) 10^3/c mm MPV (7.4-10.4) fL Neut % (Auto) % Lymph % (Auto) % Wetzel % (Auto) % Eos % (Auto) % Baso % (Auto) % Neut # (Auto) (1.8-7.7) 10^3/u L Lymph # (Auto) (0.8-4.8) 10^3/u L Wetzel # (Auto) (0.2-0.9) 10^3/u L Eos # (Auto) (0.0-0.8) 10^3/u L Baso # (Auto) (0.0-0.1) 10^3/u L Nucleated RBC % (a uto) % Nucleated RBCs # /100WBC PT 14.50 H (10.5-13.3) SECO NDS INR 1.09 (0.8-1.2) APTT 33.0 (23.9-36.7) SECO NDS Sodium (136-145) mmol/L Potassium (3.5-5.1) mmol/L Chloride (98-107) mmol/L Carbon Dioxide (22-29) mmol/L Anion Gap (5-19) BUN (8-23) mg/dL Creatinine (0.7-1.2) mg/dL Glucose (74-106) mg/dL Lactate 1.8 (0.5-2.2) mmol/L Calcium (8.8-10.2) mg/Dl Total Bilirubin (0.15-1.2) mg/dL AST (0-40) U/L ALT (0-41) U/L Alkaline Phosphata se (40-130) IU/L Ammonia (16-60) umol/L Total Protein (6.6-8.7) g/dL Albumin (3.5-5.2) g/dL Globulin (1.3-4.6) g/dL Lipase 38 (13-60) U/L TSH (0.27-4.20) uIU/ mL Urine Color (Yellow) Urine Appearance (CLEAR) Urine pH (5-7) Ur Specific Gravit y (1.005-1.030) Urine Protein (Negative) Urine Glucose (UA) (Normal) Urine Ketones (Negative) Urine Occult Blood (Negative) Urine Nitrate (Negative) Urine Bilirubin (NEGATIVE) Urine Urobilinogen (Negative) mg/dL Ur Leukocyte Sindy ase (Negative) Salicylates (3-10) mg/dL Acetaminophen (10-30) ug/mL Ethyl Alcohol (0-10) mg/dL Serum Ketones (Negative) 09/27/19 09/27/19 09/27/19 Range/Units 08:50 08:50 10:25 WBC (4.0-10.0) 10^3/ uL RBC (4.1-5.3) 10^6/u L Hgb (11.7-16.6) g/dL Hct (42.0-52.0) % MCV (80-94) fL MCH (28.0-34.0) pg MCHC (30.0-36.0) g/dL RDW (12.1-15.1) % Plt Count (130-400) 10^3/c mm MPV (7.4-10.4) fL Neut % (Auto) % Lymph % (Auto) % Wetzel % (Auto) % Eos % (Auto) % Baso % (Auto) % Neut # (Auto) (1.8-7.7) 10^3/u L Lymph # (Auto) (0.8-4.8) 10^3/u L Wetzel # (Auto) (0.2-0.9) 10^3/u L Eos # (Auto) (0.0-0.8) 10^3/u L Baso # (Auto) (0.0-0.1) 10^3/u L Nucleated RBC % (a uto) % Nucleated RBCs # /100WBC PT (10.5-13.3) SECO NDS INR (0.8-1.2) APTT (23.9-36.7) SECO NDS Sodium (136-145) mmol/L Potassium (3.5-5.1) mmol/L Chloride (98-107) mmol/L Carbon Dioxide (22-29) mmol/L Anion Gap (5-19) BUN (8-23) mg/dL Creatinine (0.7-1.2) mg/dL Glucose (74-106) mg/dL Lactate (0.5-2.2) mmol/L Calcium (8.8-10.2) mg/Dl Total Bilirubin (0.15-1.2) mg/dL AST (0-40) U/L ALT (0-41) U/L Alkaline Phosphata se (40-130) IU/L Ammonia (16-60) umol/L Total Protein (6.6-8.7) g/dL Albumin (3.5-5.2) g/dL Globulin (1.3-4.6) g/dL Lipase (13-60) U/L TSH 7.39 H (0.27-4.20) uIU/ mL Urine Color Yellow (Yellow) Urine Appearance Clear (CLEAR) Urine pH 5 (5-7) Ur Specific Gravit y 1.010 (1.005-1.030) Urine Protein Neg (Negative) Urine Glucose (UA) Norm (Normal) Urine Ketones Negative (Negative) Urine Occult Blood Neg (Negative) Urine Nitrate Negative (Negative) Urine Bilirubin Neg (NEGATIVE) Urine Urobilinogen Norm (Negative) mg/dL Ur Leukocyte Sindy ase Negative (Negative) Salicylates < 0.3 L (3-10) mg/dL Acetaminophen < 5.0 L (10-30) ug/mL Ethyl Alcohol < 10 (0-10) mg/dL Serum Ketones Negative (Negative) Discharge Plan Discharge Patient Disposition: Home, Self-Care Clinical Impression: Fall, Clavicle fracture, Acute knee pain, Anemia Condition: Stable Prescriptions: No Action Multiple Vitamins Tablet 1 tab PO DAILY RF: 0 Lasix 40 mg Tablet See Rx Instructions .ROUTE .COMPLEX RF: 0 albuterol sulfate 2.5 mg /3 mL (0.083 %) Solution For Nebulization 2.5 mg INHALATION Q4H PRN (Reason: Shortness Of Breath) RF: 0 trazodone 50 mg Tablet 50 mg PO BEDTIME RF: 0 Aspir-81 81 mg Tablet,Delayed Release (Dr/Ec) 81 mg PO DAILY RF: 0 spironolactone 25 mg Tablet 25 mg PO DAILY RF: 0 pravastatin 10 mg Tablet 10 mg PO BEDTIME RF: 0 Norvasc 10 mg Tablet 10 mg PO BEDTIME RF: 0 Protonix 40 mg Tablet,Delayed Release (Dr/Ec) 40 mg PO DAILY RF: 0 allopurinol 300 mg Tablet 300 mg PO BEDTIME RF: 0 gabapentin 100 mg Capsule See Rx Instructions .ROUTE .COMPLEX RF: 0 ProAir HFA 90 mcg/actuation Hfa Aerosol Inhaler 2 puff INHALATION QID PRN (Reason: Shortness Of Breath) RF: 0 Paxil 40 mg Tablet 40 mg PO BEDTIME RF: 0 propranolol 20 mg Tablet 20 mg PO BID RF: 0 Flonase Allergy Relief 50 mcg/actuation [place],Suspension 1 spray INTRANASAL DAILY PRN (Reason: unknown) RF: 0 Novolog Flexpen U-100 Insulin 100 unit/mL (3 mL) Insulin Pen See Rx Instructions .ROUTE .COMPLEX RF: 0 Symbicort 160-4.5 mcg/actuation Hfa Aerosol Inhaler 2 puff INHALATION BID RF: 0 Lantus Solostar U-100 Insulin 100 unit/mL (3 mL) Insulin Pen 46 unit SUBCUT BEDTIME RF: 0 oxycodone 10 mg Tablet 5 mg PO BID PRN (Reason: Pain) RF: 0 Spiriva Respimat 2.5 mcg/actuation Mist 1 puff INHALATION DAILY RF: 0 potassium chloride 20 mEq Tablet Extended Release 20 meq PO DAILY RF: 0 Robaxin-750 500 mg PO BID PRN (Reason: Spasms) RF: 0 Referrals: Sae Silva MD [Primary Care Provider] - Discharge Diet: Usual diet Discharge Activity: Increase activity as tolerated Interventions: ED Discharge Assessment Last Done: 09/27/19 13:07 Discharge Date/Time: 09/27/19 13:14 Coding Level of Care Code ED Retread Builder for Chg Fwd Exam Problem Focused The documentation recorded by the Carlos aguilar Kialy, accurately reflects the service I personally performed and the decisions made by Crow [email or web address] Curtis L, DO Sep 27, 2019 08:17
[2019-09-27 10:09] VITALS: PULSE 69; RESP 20; O2SAT 94
[2019-09-27 10:18] LABS: Ketone (Acetest) Serum Negative (Negative)
[2019-09-27 10:26] LABS: Thyroid Stimulating Hormone 7.39 uIU/mL (0.27-4.20)
[2019-09-27 10:27] LABS: Acetaminophen < 5.0 ug/mL (10-30); Alcohol Level < 10 mg/dL (0-10); Salicylate < 0.3 mg/dL (3-10)
[2019-09-27 10:39] LABS: Add Urine Microscopic? NO
[2019-09-27 10:49] VITALS: RESP 18
[2019-09-27] MEDS: morphine 4 mg/mL SDV 1 mL IVP (10:49)
[2019-09-27 10:52] VITALS: PULSE 70; RESP 16; O2SAT 93; O2SAT 94
[2019-09-27 11:09] LABS: Bilirubin Urine Neg (NEGATIVE); Blood Urine Neg (Negative); Glucose Urine UA Norm (Normal); Ketones Urine Negative (Negative); Leukocyte Esterase Urine Negative (Negative); Nitrate Urine Negative (Negative); Protein Urine Neg (Negative); Urine Appearance Clear (CLEAR); Urine Color Yellow (Yellow); Urobilinogen Urine Norm (Negative); pH Urine 5 (5-7)
[2019-09-27 13:07] VITALS: BP 118/44; PULSE 71; RESP 16; O2SAT 92
== END 2019-09-27 13:14 | disposition home or self-care (01) ==
PROVIDERS: Physician Assistant; Emergency Provider Family Medicine; Family Provider Family Medicine; PCP Family Medicine
DX: M25.561 Pain in right knee (principal); S42.031A Displaced fracture of lateral end of right clavicle, initial encounter for closed fracture; D64.9 Anemia, unspecified; Z87.891 Personal history of nicotine dependence; W19.XXXA Unspecified fall, initial encounter; Z99.81 Dependence on supplemental oxygen; J44.9 Chronic obstructive pulmonary disease, unspecified; M79.89 Other specified soft tissue disorders; Z79.899 Other long term (current) drug therapy
CPT/HCPCS: 36415; 70450; 71045; 72125; 73030; 73502; 73562; 80053; 80307; 81003; 82009; 82140; 83605; 83690; 84443; 85025; 85610; 85730; 93971; 94640; 96374; 99282; 99284; A7003; A9270; J2270

== ENCOUNTER 2019-09-28 07:47 | Inpatient (IN) | payer OTHER, SELFPAY ==
[2019-09-28] VITALS (20 sets, daily range): BP systolic 131–167; BP diastolic 45–91; PULSE 75–97; RESP 13–28; TEMP 36.3–37.2; O2SAT 89–94; BMI 36.6
--- NOTE | 2019-09-28 07:48 | W.ED.SOB ---
HPI - SOB/Dyspnea General: Chief Complaint: Shortness of Breath/Dyspnea Stated Complaint: SHORTNESS OF BREATH Time Seen by Provider: 09/28/19 07:48 Source: family Mode of arrival: EMS Limitations: no limitations History of Present Illness: HPI Narrative: Patient is a 78-year-old male who presents to ED today along with his for evaluation of worsening shortness of breath; patient was seen here in our ED yesterday for this complaint as well as a recent fall; work-up during that visit was negative; he was seen along with myself and Dr. Maria and discharged home; states since that point he has became increasingly weak and altered; she reports increased labored breathing; reports symptoms are similar to when he was hospitalized with COPD exacerbation; patient is on 3 L continual oxygen and has not had to increase this; he has a history of liver cirrhosis, HTN, DM2; PCP is Dr. Ricardo SHANNON elicited complaint: shortness of breath Pertinent past history: COPD Onset (ago): day(s) Timing: constant Severity: moderate Known history of: COPD Associated symptoms: Reports chest congestion; Deny abdominal pain, chest pain, dizziness, fever(s), hemoptysis, lightheadedness, nausea, palpitations, syncope or vomiting Treatment prior to arrival: oxygen and other (breathing tx via EMS) Related Data: Home oxygen amount: 3 liters Review of Systems Const: Denies: fever or chills Eyes: Denies: change in vision or blurry vision Card: Denies: chest pain, palpitations, irregular heart rhythm, lightheadedness, syncope or shortness of breath on exertion Resp: Reports: shortness of breath, productive cough, wheezing and chest congestion; Denies: change in phlegm color or coughing up blood GI: Reports: other (chronic abdominal distention ); Denies: abdominal pain, nausea, vomiting, heartburn/indigestion or diarrhea : Denies: difficulty urinating or painful urination Musc: Denies: neck pain, back pain or joint pain Skin/Breast: Denies: rash Neuro: Reports: other (generalized weakness ); Denies: headache or dizziness PFSH ED PFSH: Statuses (acute, chronic, etc) shown below reflect problem list status as previously entered and may not be historically accurate Social History Smoking and tobacco status: former smoker Physical Exam Const: COMMON NORMALS: no apparent distress (mild respiratory distress ) and alert EXAM LIMITATIONS: altered mental status GENERAL APPEARANCE: cooperative NUTRITIONAL APPEARANCE: obese ORIENTATION/CONSCIOUSNESS: Yes awake, Yes oriented to person and Yes confused HENMT: COMMON NORMALS: normocephalic, head/scalp atraumatic, external ears normal, EAC's normal, TM's normal bilaterally and external nose normal HEAD & SCALP: normal to inspection, normocephalic and atraumatic FACE & SINUS: normal facial exam NOSE: external nose normal EXTERNAL EAR: Yes external ears normal EXTERNAL AUDITORY CANAL: EAC's normal TYMPANIC MEMBRANE: TM's normal bilaterally MOUTH: oral and palatal mucosa normal THROAT: posterior oropharynx normal, tonsils normal and uvula midline Eye: COMMON NORMALS: PERRL and EOMs intact bilaterally PUPIL: Yes PERRL Neck/C-Spine: COMMON NORMALS: full ROM, no lymphadenopathy, supple and no meningeal signs Chest: COMMONS NORMALS: inspection of chest normal Resp: COMMON NORMALS: no retractions EFFORT & INSPECTION: Yes respiratory distress and Yes labored AUSCULTATION: wheezes scattered wheezes and bronchovesicular breath sounds Cardio: COMMON NORMALS: regular rate and regular rhythm RATE: regular rate RHYTHM: regular rhythm GI: COMMON NORMALS: non-tender INSPECTION: Yes abdominal distension (chronic distention from cirrhosis- states at baseline ) Back/Pelvis: COMMON NORMALS: thoracic and lumbar spine normal to inspection Extremity: COMMON NORMALS: normal to inspection GENERAL: Yes normal exam except as noted Neuro: SENSORIUM/ORIENTATION: Yes alert and Yes oriented to person MENINGEAL SIGNS: Yes no meningeal signs Skin: COMMON NORMALS: no rashes or lesions noted GENERAL SKIN EXAM: no rashes or lesions noted Course Vital Signs: Vital signs: Vital Signs Temperature 99.0 F 09/28/19 07:51 Pulse Rate 76 09/28/19 08:15 Respiratory Rate 16 09/28/19 08:00 Blood Pressure 131/51 09/28/19 07:51 Pulse Oximetry 93 09/28/19 08:00 MDM - SOB/Dyspnea MDM Narrative: Medical decision making narrative: CXR today showing pneumonia; more altered than yesterday; has had to increase O2; Dr. Cherry spoke to pts PCP Dr. Silva who requested dose of Lasix and agrees with admit; Dr. Cherry will place admit orders Lab Data: Labs: Lab Results 09/28/19 09/28/19 09/28/19 Range/Units 08:02 08:04 08:04 WBC 4.6 (4.0-10.0) 10^3/ uL RBC 2.88 L (4.1-5.3) 10^6/u L Hgb 8.0 L (11.7-16.6) g/dL Hct 25.9 L (42.0-52.0) % MCV 89.9 (80-94) fL MCH 27.8 L (28.0-34.0) pg MCHC 30.9 (30.0-36.0) g/dL RDW 14.6 (12.1-15.1) % Plt Count 102 L (130-400) 10^3/c mm MPV 10.6 H (7.4-10.4) fL Neut % (Auto) 62.3 % Lymph % (Auto) 23.7 % [place] % (Auto) 10.3 % Eos % (Auto) 3.1 % Baso % (Auto) 0.2 % Neut # (Auto) 2.8 (1.8-7.7) 10^3/u L Lymph # (Auto) 1.1 (0.8-4.8) 10^3/u L [place] # (Auto) 0.5 (0.2-0.9) 10^3/u L Eos # (Auto) 0.1 (0.0-0.8) 10^3/u L Baso # (Auto) 0.0 (0.0-0.1) 10^3/u L Nucleated RBC % (a uto) 0 % Nucleated RBCs # 0.0 /100WBC Specimen Type Arterial Sample Site Radial, left ABG pH 7.42 (7.35-7.45) ABG pCO2 45.2 H (35-45) mmHg ABG pO2 57.1 L (80.0-100.0) mmH g ABG HCO3 29.0 H (22-26) mmol/L ABG Base Excess 4.0 H (-2.0-2.0) mmol/ L Aron Test Pos Hematocrit 26.3 L (42-52) % Hgb O2 Saturation 88.9 L (95-100) % Carboxyhemoglobin 1.3 (0.4-20.1) %THgb Methemoglobin 0.5 (0.4-1.5) % Total Hemoglobin 8.6 L (14-18) g/dL O2 Liters/Min 3.5 % [employer] Erecting Pusher ID ed Sodium 133 L (136-145) mmol/L Potassium 4.8 (3.5-5.1) mmol/L Chloride 94 L (98-107) mmol/L Carbon Dioxide 27 (22-29) mmol/L Anion Gap 16.8 (5-19) BUN 29 H (8-23) mg/dL Creatinine 1.9 H (0.7-1.2) mg/dL Glucose 188 H (74-106) mg/dL Lactate (0.5-2.2) mmol/L Calcium 9.8 (8.8-10.2) mg/Dl Total Bilirubin 0.4 (0.15-1.2) mg/dL AST 25 (0-40) U/L ALT 14 (0-41) U/L Alkaline Phosphata se 96 (40-130) IU/L Ammonia (16-60) umol/L NT-Pro-B Natriuret Pep 1168 H (0-450) pg/mL Total Protein 7.5 (6.6-8.7) g/dL Albumin 3.9 (3.5-5.2) g/dL Globulin 3.6 (1.3-4.6) g/dL Urine Color (Yellow) Urine Appearance (CLEAR) Urine pH (5-7) Ur Specific Gravit y (1.005-1.030) Urine Protein (Negative) Urine Glucose (UA) (Normal) Urine Ketones (Negative) Urine Occult Blood (Negative) Urine Nitrate (Negative) Urine Bilirubin (NEGATIVE) Urine Urobilinogen (Negative) mg/dL Ur Leukocyte Sindy ase (Negative) Influenza Type A A g (Negative) POC Influenza B Ag (Negative) 09/28/19 09/28/19 09/28/19 Range/Units 08:04 08:04 09:34 WBC (4.0-10.0) 10^3/ uL RBC (4.1-5.3) 10^6/u L Hgb (11.7-16.6) g/dL Hct (42.0-52.0) % MCV (80-94) fL MCH (28.0-34.0) pg MCHC (30.0-36.0) g/dL RDW (12.1-15.1) % Plt Count (130-400) 10^3/c mm MPV (7.4-10.4) fL Neut % (Auto) % Lymph % (Auto) % [place] % (Auto) % Eos % (Auto) % Baso % (Auto) % Neut # (Auto) (1.8-7.7) 10^3/u L Lymph # (Auto) (0.8-4.8) 10^3/u L [place] # (Auto) (0.2-0.9) 10^3/u L Eos # (Auto) (0.0-0.8) 10^3/u L Baso # (Auto) (0.0-0.1) 10^3/u L Nucleated RBC % (a uto) % Nucleated RBCs # /100WBC Specimen Type Sample Site ABG pH (7.35-7.45) ABG pCO2 (35-45) mmHg ABG pO2 (80.0-100.0) mmH g ABG HCO3 (22-26) mmol/L ABG Base Excess (-2.0-2.0) mmol/ L Aron Test Hematocrit (42-52) % Hgb O2 Saturation (95-100) % Carboxyhemoglobin (0.4-20.1) %THgb Methemoglobin (0.4-1.5) % Total Hemoglobin (14-18) g/dL O2 Liters/Min % [employer] E[employer] Pusher ID Sodium (136-145) mmol/L Potassium (3.5-5.1) mmol/L Chloride (98-107) mmol/L Carbon Dioxide (22-29) mmol/L Anion Gap (5-19) BUN (8-23) mg/dL Creatinine (0.7-1.2) mg/dL Glucose (74-106) mg/dL Lactate 1.1 (0.5-2.2) mmol/L Calcium (8.8-10.2) mg/Dl Total Bilirubin (0.15-1.2) mg/dL AST (0-40) U/L ALT (0-41) U/L Alkaline Phosphata se (40-130) IU/L Ammonia 50 (16-60) umol/L NT-Pro-B Natriuret Pep (0-450) pg/mL Total Protein (6.6-8.7) g/dL Albumin (3.5-5.2) g/dL Globulin (1.3-4.6) g/dL Urine Color (Yellow) Urine Appearance (CLEAR) Urine pH (5-7) Ur Specific Gravit y (1.005-1.030) Urine Protein (Negative) Urine Glucose (UA) (Normal) Urine Ketones (Negative) Urine Occult Blood (Negative) Urine Nitrate (Negative) Urine Bilirubin (NEGATIVE) Urine Urobilinogen (Negative) mg/dL Ur Leukocyte Sindy ase (Negative) Influenza Type A A g Negative (Negative) POC Influenza B Ag Negative (Negative) 09/28/19 Range/Units 09:34 WBC (4.0-10.0) 10^3/ uL RBC (4.1-5.3) 10^6/u L Hgb (11.7-16.6) g/dL Hct (42.0-52.0) % MCV (80-94) fL MCH (28.0-34.0) pg MCHC (30.0-36.0) g/dL RDW (12.1-15.1) % Plt Count (130-400) 10^3/c mm MPV (7.4-10.4) fL Neut % (Auto) % Lymph % (Auto) % [place] % (Auto) % Eos % (Auto) % Baso % (Auto) % Neut # (Auto) (1.8-7.7) 10^3/u L Lymph # (Auto) (0.8-4.8) 10^3/u L [place] # (Auto) (0.2-0.9) 10^3/u L Eos # (Auto) (0.0-0.8) 10^3/u L Baso # (Auto) (0.0-0.1) 10^3/u L Nucleated RBC % (a uto) % Nucleated RBCs # /100WBC Specimen Type Sample Site ABG pH (7.35-7.45) ABG pCO2 (35-45) mmHg ABG pO2 (80.0-100.0) mmH g ABG HCO3 (22-26) mmol/L ABG Base Excess (-2.0-2.0) mmol/ L Aron Test Hematocrit (42-52) % Hgb O2 Saturation (95-100) % Carboxyhemoglobin (0.4-20.1) %THgb Methemoglobin (0.4-1.5) % Total Hemoglobin (14-18) g/dL O2 Liters/Min % [employer] E[employer]ing Pusher ID Sodium (136-145) mmol/L Potassium (3.5-5.1) mmol/L Chloride (98-107) mmol/L Carbon Dioxide (22-29) mmol/L Anion Gap (5-19) BUN (8-23) mg/dL Creatinine (0.7-1.2) mg/dL Glucose (74-106) mg/dL Lactate (0.5-2.2) mmol/L Calcium (8.8-10.2) mg/Dl Total Bilirubin (0.15-1.2) mg/dL AST (0-40) U/L ALT (0-41) U/L Alkaline Phosphata se (40-130) IU/L Ammonia (16-60) umol/L NT-Pro-B Natriuret Pep (0-450) pg/mL Total Protein (6.6-8.7) g/dL Albumin (3.5-5.2) g/dL Globulin (1.3-4.6) g/dL Urine Color Yellow (Yellow) Urine Appearance Clear (CLEAR) Urine pH 5.0 (5-7) Ur Specific Gravit y 1.010 (1.005-1.030) Urine Protein Neg (Negative) Urine Glucose (UA) Norm (Normal) Urine Ketones Negative (Negative) Urine Occult Blood Neg (Negative) Urine Nitrate Negative (Negative) Urine Bilirubin Neg (NEGATIVE) Urine Urobilinogen Norm (Negative) mg/dL Ur Leukocyte Sindy ase Negative (Negative) Influenza Type A A g (Negative) POC Influenza B Ag (Negative) Imaging Data^: CXR: Radiologist's impression: [address] [address] XRay Report Signed Patient: Parish Brewer MR#: [id number] : 1940 Acct:[id number] Age/Sex: 78 / M ADM Date: 09/28/19 Loc: ER Attending Dr: Ordering Physician: Jessica Negro Date of Service: 09/28/19 Procedure(s): XR chest 1V portable [id number] Accession Number(s): [id number] Report Number: [id number] WS: [id number] PORTABLE CHEST HISTORY: cough/congestion COMPARISON: 09/27/2019 Hyperinflated lungs. Increasing consolidation in the RIGHT lower lung field. Diffuse scattered haziness and interstitial thickening over both lungs. Slightly more prominent as compared to the prior study. Suspect mild pulmonary edema . Small bilateral pleural effusions are likely. Cardiac size: Moderately enlarged cardiac silhouette. Mediastinum/Aorta: Moderate atherosclerosis aorta. Unfused fracture distal RIGHT clavicle. XR/XR chest 1V portable [id number] IMPRESSION: 1. Interval development of mild pulmonary congestion and small bilateral pleural effusions. 2. Increasing consolidation in the RIGHT lower lung andino suspicious for pneumonia. Dictated By: Rosette Echols DO Signed By: Rosette Echols DO Signed Date/Time:09/28/19833 DD/ 1 Discharge Plan Discharge Patient Disposition: Home, Self-Care Clinical Impression: Pneumonia, Acute exacerbation of chronic obstructive airways disease, Acute alteration in mental status Condition: Stable Prescriptions: No Action multivitamin [Multiple Vitamins] Tablet 1 tab PO DAILY RF: 0 furosemide [Lasix] 40 mg Tablet See Rx Instructions .ROUTE .COMPLEX RF: 0 albuterol sulfate 2.5 mg /3 mL (0.083 %) Solution For Nebulization 2.5 mg INHALATION Q4H PRN (Reason: Shortness Of Breath) RF: 0 trazodone 50 mg Tablet 50 mg PO BEDTIME RF: 0 aspirin [Aspir-81] 81 mg Tablet,Delayed Release (Dr/Ec) 81 mg PO DAILY RF: 0 spironolactone 25 mg Tablet 25 mg PO DAILY RF: 0 pravastatin 10 mg Tablet 10 mg PO BEDTIME RF: 0 amlodipine [Norvasc] 10 mg Tablet 10 mg PO BEDTIME RF: 0 pantoprazole [Protonix] 40 mg Tablet,Delayed Release (Dr/Ec) 40 mg PO DAILY RF: 0 allopurinol 300 mg Tablet 300 mg PO BEDTIME RF: 0 gabapentin 100 mg Capsule See Rx Instructions .ROUTE .COMPLEX RF: 0 albuterol sulfate [ProAir HFA] 90 mcg/actuation Hfa Aerosol Inhaler 2 puff INHALATION QID PRN (Reason: Shortness Of Breath) RF: 0 paroxetine HCl [Paxil] 40 mg Tablet 40 mg PO BEDTIME RF: 0 propranolol 20 mg Tablet 20 mg PO BID RF: 0 fluticasone propionate [Flonase Allergy Relief] 50 mcg/actuation [place],Suspension 1 spray INTRANASAL DAILY PRN (Reason: unknown) RF: 0 Novolog Flexpen U-100 Insulin 100 unit/mL (3 mL) Insulin Pen See Rx Instructions .ROUTE .COMPLEX RF: 0 Symbicort 160-4.5 mcg/actuation Hfa Aerosol Inhaler 2 puff INHALATION BID RF: 0 Lantus Solostar U-100 Insulin 100 unit/mL (3 mL) Insulin Pen 46 unit SUBCUT BEDTIME RF: 0 oxycodone 10 mg Tablet 5 mg PO BID PRN (Reason: Pain) RF: 0 Spiriva Respimat 2.5 mcg/actuation Mist 1 puff INHALATION DAILY RF: 0 potassium chloride 20 mEq Tablet Extended Release 20 meq PO DAILY RF: 0 Robaxin-750 500 mg PO BID PRN (Reason: Spasms) RF: 0 Referrals: Sae Silva MD [Primary Care Provider] - Coding Level of Care Code ED Medical Supervisor for Chg Fwd Exam Problem Focused
--- NOTE | 2019-09-28 07:55 | XR_ITS ---
WS: [id number] PORTABLE CHEST HISTORY: cough/congestion COMPARISON: 09/27/2019 Hyperinflated lungs. Increasing consolidation in the RIGHT lower lung field. Diffuse scattered hazine ss and interstitial thickening over both lungs. Slightly more prominent as compared to the prior stud y. Suspect mild pulmonary edema . Small bilateral pleural effusions are likely. Cardiac size: Moderately enlarged cardiac silhouette. Mediastinum/Aorta: Moderate atherosclerosis aorta. Unfused fracture distal RIGHT clavicle. XR/XR chest 1V portable [id number] IMPRESSION: 1. Interval development of mild pulmonary congestion and small bilateral pleur al effusions. 2. Increasing consolidation in the RIGHT lower lung andino suspicious for pneu monia.
[2019-09-28] MEDS: ipratropium-albuterol 3 mL Neb INHALATION (08:12)
[2019-09-28 08:13] LABS: ABG PCO2 45.2 mmHg (35-45); ABG PH Result 7.42 (7.35-7.45); Arterial Blood Gas Hematocrit 26.3 % (42-52); Blood Gas Allen Test Pos; Blood Gas LPM 3.5 %; Blood Gas Sample Site Radial, left; Blood Gas Sample Type Arterial; Carboxyhemoglobin 1.3 %THgb (0.4-20.1); HGB O2 Sat 88.9 % (95-100); Methemoglobin 0.5 % (0.4-1.5); PO2 ABG 57.1 mmHg (80.0-100.0); Total Hemoglobin 8.6 g/dL (14-18)
[2019-09-28 08:24] LABS: Basophils % 0.2 %; Eosinophils # 0.1 10^3/uL (0.0-0.8); Eosinophils % 3.1 %; Hematocrit 25.9 % (42.0-52.0); Lymphocytes # 1.1 10^3/uL (0.8-4.8); Lymphocytes % 23.7 %; Mean Corpuscular HGB Conc 30.9 g/dL (30.0-36.0); Mean Corpuscular Hemoglobin 27.8 pg (28.0-34.0); Mean Corpuscular Volume 89.9 fL (80-94); Mean Platelet Volume 10.6 fL (7.4-10.4); Monocytes # 0.5 10^3/uL (0.2-0.9); Monocytes % 10.3 %; Neutrophils # 2.8 10^3/uL (1.8-7.7); Neutrophils % 62.3 %; Nucleated Red Blood Cells % 0 %; Platelet Count 102 10^3/cmm (130-400); Red Blood Count 2.88 10^6/uL (4.1-5.3); Red Cell Distribution Width 14.6 % (12.1-15.1); White Blood Count 4.6 10^3/uL (4.0-10.0)
[2019-09-28 08:39] LABS: Alanine Aminotransferase 14 U/L (0-41); Albumin Level 3.9 g/dL (3.5-5.2); Alkaline Phosphatase 96 IU/L (40-130); Anion Gap 16.8 (5-19); Aspartate Amino Transferase 25 U/L (0-40); Blood Urea Nitrogen 29 mg/dL (8-23); Calcium 9.8 mg/Dl (8.8-10.2); Carbon Dioxide 27 mmol/L (22-29); Chloride 94 mmol/L (98-107); Globulin 3.6 g/dL (1.3-4.6); Glucose 188 mg/dL (74-106); NT Pro B Type Natriuretic Pept 1168 pg/mL (0-450); Potassium 4.8 mmol/L (3.5-5.1); Sodium 133 mmol/L (136-145); Total Bilirubin 0.4 mg/dL (0.15-1.2); Total Protein 7.5 g/dL (6.6-8.7)
[2019-09-28] MEDS: cefTRIAXone 1,000 MG in sodium chloride 0.9% (plus) 50 ML 100 MG IV (08:55)
[2019-09-28] MEDS: azithromycin 500 MG in sodium chloride 0.9% 250 ML 250 MG IV (08:58)
[2019-09-28 08:59] LABS: Lactate (Lactic Acid level) 1.1 mmol/L (0.5-2.2)
[2019-09-28 09:00] LABS: Ammonia 50 umol/L (16-60)
[2019-09-28 09:55] LABS: Add Urine Microscopic? NO
[2019-09-28 10:03] LABS: Bilirubin Urine Neg (NEGATIVE); Blood Urine Neg (Negative); Glucose Urine UA Norm (Normal); Ketones Urine Negative (Negative); Leukocyte Esterase Urine Negative (Negative); Nitrate Urine Negative (Negative); Protein Urine Neg (Negative); Urine Appearance Clear (CLEAR); Urine Color Yellow (Yellow); Urobilinogen Urine Norm (Negative)
[2019-09-28 10:09] LABS: Influenza A by IFA Negative (Negative); Influenza B by IFA Negative (Negative)
[2019-09-28] MEDS: sodium chloride 0.9% 1,000 ML 100 ML IV (12:00)
[2019-09-28] MEDS: FUROsemide 10 mg/mL SDV 4mL 40 MG IVP (12:02)
--- NOTE | 2019-09-28 16:00 | PC.NURSE ---
PATIENT BROUGHT UP FROM ER.
--- NOTE | 2019-09-28 20:21 | P.HP_ITS ---
Providers/Chief Complaint Admitting Physician: Sae Silva MD Primary Care Provider: Sae Silva MD Chief Complaint: SHORTNESS OF BREATH History of Present Illness Parish Brewer is a 78 year old male with past medical history of pneumonia, COPD, liver cirrhosis, chronic kidney disease, anemia, fluid overload, aspiration pneumonia who presents emergency department with concerns for increasing shortness of breath. The patient was in the ER on 09/27/2019 secondary to a fall that happened over the weekend. He had some bruising on his right knee and right shoulder. A chest x- ray was done that did not show any signs of pneumonia. Overall patient was feeling well and was discharged home. He returned on the day of admission secondary to increasing shortness of breath, increasing oxygen demand of 4 L of oxygen via nasal cannula and confusion. He was found to have a new right lower lobe pneumonia with worsening congestion concern for fluid overload. He was admitted for further observation and treatment. Review of Systems Const: Denies: fever or chills Card: Reports: shortness of breath on exertion and shortness of breath when lying down; Denies: chest pain Resp: Reports: shortness of breath, productive cough and chest congestion; Denies: coughing up blood GI: Denies: abdominal pain, nausea, vomiting, vomiting blood, diarrhea or constipation : Denies: flank pain or painful urination Medications/Allergies Allergies Allergy/AdvReac Type Severity Reaction Status Date / Time lisinopril Allergy ALGY-Rash Verified 09/28/19 10:46 tizanidine Allergy Unknown Verified 09/28/19 10:46 PFSH Acute PFSH: Statuses (acute, chronic, etc) shown below reflect problem list status as previously entered and may not be historically accurate Surgical History (Updated 09/28/19 @ 20:29 by Sae Silva MD) H/O inguinal hernia repair (Acute) H/O right knee surgery (Acute) History of appendectomy (Acute) History of cataract surgery (Acute) Social History Smoking and tobacco status: former smoker Vitals/I&O/Wt Last Vital Signs Temp 97.4 F L 09/28/19 16:00 Pulse 93 09/28/19 16:00 Resp 22 H 09/28/19 16:00 BP 134/61 09/28/19 16:00 Pulse Ox 91 09/28/19 16:00 09/28/19 09/28/19 09/28/19 06:59 14:59 22:59 Intake Total 720 / 720 Output Total 350 / 350 Balance 370 / 370 Weight last 48 hrs Weight 99.79 kg Physical Exam Const: COMMON NORMALS: no apparent distress ORIENTATION/CONSCIOUSNESS: Yes confused HENMT: MOUTH: oral and palatal mucosa normal TEETH & GINGIVA: Yes edentulous Resp: COMMON NORMALS: normal respiratory effort EFFORT & INSPECTION: No tachypneic AUSCULTATION: rhonchi, wheezes and diminished lung sounds on the right Cardio: RATE: regular rate RHYTHM: regular rhythm HEART SOUNDS: no murmurs Extremity: OTHER: Bruising noted on the right knee and right shoulder. Bruising also noted on the central abdomen. +1 pitting edema in the bilateral lower extremities A&P Assessment and plan (1) Pneumonia: The patient has another right lower lobe pneumonia. This is concerning for aspiration pneumonia. I will get a CT of the chest to rule out another underlying cause. Unable to use contrast secondary to renal function. I will contact pulmonology in the morning to further evaluate if he may be a good candidate for bronchoscopy. The patient has had food particles in the lung on prior bronchoscopies. This may be the cause of frequent pneumonias. For now the patient is on Rocephin and azithromycin. I will add vancomycin secondary to his recent hospitalization. We may need to add another medication for double coverage of Pseudomonas as well. Status: Acute Qualifiers: Laterality: right Lung location: lower lobe of lung Pneumonia type: due to unspecified organism Qualified Code(s): J18.9 - Pneumonia, unspecified organism Code(s): J18.9 - Pneumonia, unspecified organism (2) COPD (chronic obstructive pulmonary disease): Patient has some wheezing, however is not significant at this time. Continue with respiratory therapy and add steroids if not improving. Status: Acute Code(s): J44.9 - Chronic obstructive pulmonary disease, unspecified (3) Anemia: Hemoglobin is only 8.0 at this time. The patient is scheduled to get an iron transfusion from Dr. Arboleda. This may be lower right now due to volume expansion. Hopefully with Lasix therapy will see the levels increase. Status: Acute Code(s): D64.9 - Anemia, unspecified (4) Diabetes: Insulin sliding scale and long-acting insulin for treatment. Status: Acute Code(s): E11.9 - Type 2 diabetes mellitus without complications (5) HTN (hypertension): Stable for now Status: Acute Code(s): I10 - Essential (primary) hypertension (6) Fluid overload: Will give Lasix IV to help get some the fluid off his lungs. This has helped in the past. Oral medications have not seemed to sustain this as an outpatient. Status: Acute Code(s): E87.70 - Fluid overload, unspecified Additional A&P Information Additional A&P Information: Lovenox for DVT prophylaxis Altered mental status -the patient seems to be improving from this and it is likely secondary to the pneumonia. Attestations Medical Necessity Statement*: The patient needs to be readmitted secondary to a pneumonia. We will further evaluate this and he will likely need to stay here for greater than 2 midnights. Coding Level of Care Code Acute Machine Applicator Cementer for [facility] Fwd Diagnoses Pneumonia J18.9 Laterality: right Lung location: lower lobe of lung Pneumonia type: due to unspecified organism COPD (chronic obstructive pulmonary disease) J44.9 Anemia D64.9 Diabetes E11.9 HTN (hypertension) I10 Fluid overload E87.70
[2019-09-28] MEDS: trazodone 50 mg Tablet PO (21:04)
[2019-09-28] MEDS: enoxaparin 40 mg/0.4 mL Syringe SUBCUT (21:04)
[2019-09-28] MEDS: PARoxetine 20 mg Tablet 40 MG PO (21:04)
[2019-09-28] MEDS: allopurinol 300 mg Tablet PO (21:04)
[2019-09-28] MEDS: atorvastatin 40 mg Tablet 10 MG PO (21:04)
[2019-09-28] MEDS: amlodipine 10 mg Tablet PO (21:04)
[2019-09-28] MEDS: gabapentin 300 mg Capsule PO (21:04)
[2019-09-28 21:34] LABS: Glucose Point of Care 518 mg/dL (70-110)
[2019-09-28] MEDS: insulin glargine 100 units/1 mL 46 UNIT SUBCUT (21:37)
--- NOTE | 2019-09-28 21:40 | PC.PHAR ---
Creatinine clearance is 46.8. Vancomycin is dosed at 1000mg IVPB every 24 hours to produce a predicted trough level of 15.13 (population based pharmacokinetic analysis). A trough level has been ordered from the lab to be obtained before the third dose to confirm and adjust if needed.
[2019-09-29] VITALS (19 sets, daily range): BP systolic 74–173; BP diastolic 53–90; PULSE 88–107; RESP 18–30; TEMP 36.5–36.8; O2SAT 91–98; BMI 38.1
[2019-09-29 05:32] LABS: Hematocrit 26.5 % (42.0-52.0); Hemoglobin 8.4 g/dL (11.7-16.6); Lymphocytes # 0.8 10^3/uL (0.8-4.8); Lymphocytes % 15.6 %; Mean Corpuscular HGB Conc 31.7 g/dL (30.0-36.0); Mean Corpuscular Hemoglobin 28.9 pg (28.0-34.0); Mean Corpuscular Volume 91.1 fL (80-94); Monocytes # 0.7 10^3/uL (0.2-0.9); Monocytes % 13.1 %; Neutrophils # 3.5 10^3/uL (1.8-7.7); Nucleated Red Blood Cells % 0 %; Platelet Count 112 10^3/cmm (130-400); Red Blood Count 2.91 10^6/uL (4.1-5.3); Red Cell Distribution Width 14.4 % (12.1-15.1); White Blood Count 5.1 10^3/uL (4.0-10.0)
[2019-09-29] MEDS: sodium chloride 0.9% 1,000 ML 100 ML IV (05:35)
[2019-09-29] MEDS: gabapentin 100 mg Capsule PO (05:36)
[2019-09-29 05:49] LABS: Ammonia 41 umol/L (16-60)
[2019-09-29 05:57] LABS: Alanine Aminotransferase 15 U/L (0-41); Alkaline Phosphatase 93 IU/L (40-130); Anion Gap 17.6 (5-19); Aspartate Amino Transferase 35 U/L (0-40); Blood Urea Nitrogen 35 mg/dL (8-23); Calcium 9.6 mg/Dl (8.8-10.2); Carbon Dioxide 26 mmol/L (22-29); Chloride 96 mmol/L (98-107); Globulin 3.7 g/dL (1.3-4.6); Glucose 301 mg/dL (74-106); Magnesium 1.9 mg/dL (1.7-2.3); NT Pro B Type Natriuretic Pept 7388 pg/mL (0-450); Phosphorus 2.6 mg/dL (2.5-4.5); Potassium 4.6 mmol/L (3.5-5.1); Sodium 135 mmol/L (136-145); Total Bilirubin 0.3 mg/dL (0.15-1.2); Total Protein 7.7 g/dL (6.6-8.7)
--- NOTE | 2019-09-29 07:00 | CT_ITS ---
WS: [id number] CT CHEST TECHNIQUE: Noncontrast CT of the chest with coronal and sagittal reformatted images. CLINICAL INFORMATION: Recurrent pneumonia COMPARISON: CTA chest 10 12,019 DLP: 964.[address] scans at [facility] use at least one of these dose optimization techniques: automat ed exposure control; mA and/or kV adjustment per patient size (includes targeted exams where dose is matched to clinical indication); or iterative reconstruction. FINDINGS: Advanced chronic emphysematous changes. Small bilateral pleural effusions. Bibasilar atelectasis. Int erstitial edema throughout both lungs. Patchy infiltrates within the right upper lobe, right middle l obe, right lower lobe, left upper lobe along the fissure, and left lung base consistent with pneumoni a. Bibasilar atelectasis. Infiltrates have progressed compared to previous. Dense aortic calcification. Coronary calcification. Enlarged hilar and prominent anterior mediastinal lymph nodes likely reactive. Cirrhotic configuration to the liver. Splenomegaly. Partially visualized right renal cyst. CT/CT chest wo con [id number] IMPRESSION: 1. Patchy infiltrates involving both upper lobes, right middle lobe, and both lower lobes. This is progressed from previous. 2. No focal consolidation. 3. Small bilateral pleural effusions with bibasilar atelectasis. Interstitial edema within both lungs. 4. Enlarged hilar and prominent anterior mediastinal lymph nodes likely reacti ve 5. Cardiomegaly with dense vascular calcification. 6. Cirrhotic configuration to the liver with splenomegaly.
--- NOTE | 2019-09-29 07:00 | US_ITS ---
WS: [id number] RENAL ULTRASOUND HISTORY: CKD COMPARISON: 06/15/2018 and 03/03/2017 TECHNIQUE: 2-D and color Doppler imaging of the kidney submitted. Right kidney: 12.8 cm x 4.3 cm x 4.9 cm. Normal size kidney. Focal area of thinning in the central RIGHT renal cortex. No solid mass. Exophyti c cyst from the superior lateral kidney measures 3.4 x 4.2 x 3.6 cm. Left kidney: 9.1 cm x 4.1 cm x 5.0 cm. Normal echogenicity with no hydronephrosis or mass. Aorta: Normal. Urinary Bladder: Normal distention. US/US renal BI with bladder IMPRESSION: 1. No solid renal mass or obstruction. 2. Stable cyst upper pole RIGHT kidney.
[2019-09-29 07:02] LABS: Glucose Point of Care 265 mg/dL (70-110)
--- NOTE | 2019-09-29 07:40 | P.PN_ITS ---
Subjective Subjective: Interval history: The patient continues to have dyspnea. He is coughing up phlegm. It is thick and blood-streaked today. He does not have any significant pain at this time other than from his prior fall. Vitals/I&O/Wt Last Vital Signs Temp 98.2 F 09/29/19 07:22 Pulse 96 09/29/19 07:22 Resp 18 09/29/19 07:22 BP 128/76 09/29/19 07:22 Pulse Ox 92 09/29/19 07:22 09/28/19 09/29/19 09/29/19 22:59 06:59 14:59 Intake Total 1200 / 1200 866.667 / 2066.667 Output Total 1450 / 1450 200 / 1650 Balance -250 / -250 666.667 / 416.667 Weight last 48 hrs Weight 104.054 kg Weight 99.79 kg Physical Exam Narrative: EXAM NARRATIVE: Patient is more alert and oriented today. Heart: Regular rate and rhythm without murmur. Lungs: Moderate rhonchi and crackles with occasional wheezes throughout the bilateral lungs. Mildly improved air movement in the right lung base. Abdomen: Distended but nontender. Hepatomegaly present. Extremities: Trace pitting edema in the bilateral lower extremities Data Micro: Micro: Microbiology 09/29/19 01:05 Gram Stain - Final Sputum - Expector ated Sputum A&P Additional A&P Information Additional A&P Information: 1. Pneumonia: The patient has another right lower lobe pneumonia. This is concerning for aspiration pneumonia. I will get a CT of the chest to rule out another underlying cause. Unable to use contrast secondary to renal function. I spoke with Dr. Kumar this morning and he agreed to see the patient. Consideration for bronchoscopy. His antibiotics may need to be changed for better coverage of Pseudomonas as well. Currently he is on Rocephin, azithromycin and vancomycin. 2. COPD (chronic obstructive pulmonary disease): Patient has some wheezing, however is not significant at this time. Continue with respiratory therapy and add steroids if not improving. 3. Anemia: Hemoglobin has slightly improved to 8.4. This is likely dilutional in terms of it being lower than previously. 4. Diabetes: Insulin sliding scale and Levemir. 5. HTN (hypertension): Stable for now 6. Fluid overload: Continue with IV Lasix. 7. Altered mental status -this has improved with the above treatments. Likely secondary to infection. 8. Prophylaxis -currently the patient is on Lovenox, however we will need to watch for bleeding signs. Attestations Medical Necessity Statement*: The patient continues to need inpatient care for the above treatments. He will be here for greater than 2 midnights. Coding Level of Care Code Acute Echo Vascular Technologist for Felipa Feng
[2019-09-29] MEDS: FUROsemide 10 mg/mL SDV 10mL 60 MG IVP (08:26)
[2019-09-29 09:40] LABS: Oxygen Device NC
[2019-09-29] MEDS: spironolactone 25 mg Tablet PO ×2 (09:41→18:38)
[2019-09-29] MEDS: pantoprazole DR 40 mg Tablet PO (09:41)
[2019-09-29] MEDS: aspirin 81 mg EC Tablet PO (09:41)
[2019-09-29] MEDS: propranolol 20 mg Tablet PO ×2 (09:41→18:37)
[2019-09-29 12:14] LABS: Glucose Point of Care 442 mg/dL (70-110)
--- NOTE | 2019-09-29 13:20 | PC.RESP ---
Patient given information for Pulmonary Rehab.
--- NOTE | 2019-09-29 14:13 | PC.CHAP ---
Pastoral Care Encounter/Spiritual Assessment Type of Contact [] Declined blankbook stitching machine operator visit [] Patient/Family/Request visit [] Outpatient visit [] Follow-up visit [] Physician referral [] Code/Alert [] Routine visit [] Staff referral [] Actively dying [] Patient sleeping [] Family support [] [] Out of room [] Palliative care [] [] Receiving care in room [] Pre-surgical visit [] Trauma [] Long length of stay [] ICU visit [] Other: Relational/Emotional Strength [] Patient feels connected with others/family/visitors/staff [] Distress [] Loneliness/isolation [] Abandonment Spirituality of Patient [x] Person of Mayra [x] Attends Tenriism of their Mayra [] Believes in Prayer [] Reads Bible or Restorationism materials [] There are Spiritual issues to be addressed Communications Department Head Interventions [x] Prayer [xx] Active listening [x] Non-anxious presence [x] Spiritual/emotional support [] Crisis/trauma care [] Spiritual counseling [] Bereavement support [] Provided bereavement packet [] Provided Bible/devotional materials [] Provided toy/stuffed animal, coloring book to patient or family member [] Completed spiritual assessment [] Provided Communion [] Anointing/[place] [] Salvation [] Other: Impact on Illness or Injury [] Angry [x] Fearful [] Anxious [] Often cries [] Exhaustion [] Unable to work [] Unable to attend jew [] Unable to walk/stand [] Unable to read [] Unable to drive [] Unable to eat/drink [] Unable to sleep [] Unable to be with family [] Other: Summary has a real HAS a real hard time talking visited by sunil dill Time spent with patient 5 min
--- NOTE | 2019-09-29 16:17 | ECG_ITS ---
Measurements Intervals [place] Rate: 94 P: 28 [place]: 132 QRS: -34 QRSD: 133 T: -17 QT: 371 QTc: 465 SINUS RHYTHM MARKED LEFT AXIS DEVIATION [QRS AXIS < -30] RIGHT BUNDLE BRANCH BLOCK [120+ ms QRS DURATION, UPRIGHT V1, 40+ ms S IN I/aVL/V4/V5/V6] Compared to ECG 09/05/2019 15:24:08 No significant changes Electronically Signed On 09-30-2019 13:53:08 MAINTENANCE FITTER by Chani Gordon M.D. [id number]
[2019-09-29] MEDS: nitroglycerin 0.4 mg sublingual Tablet SUBLINGUAL (16:41)
[2019-09-29 16:56] LABS: Glucose Point of Care 463 mg/dL (70-110)
[2019-09-29 17:00] LABS: ABG PCO2 43.4 mmHg (35-45); ABG PH Result 7.37 (7.35-7.45); Arterial Blood Gas Hematocrit 27.1 % (42-52); Base Excess ABG -0.2 mmol/L (-2.0-2.0); Blood Gas Allen Test Pos; Blood Gas Sample Site Radial, left; Blood Gas Sample Type Arterial; HCO3 ABG 25.1 mmol/L (22-26); HGB O2 Sat 88.5 % (95-100); Ionized Calcium Level - ABG 1.2 mmol/L (1.1-1.4); Methemoglobin 0.7 % (0.4-1.5); PO2 ABG 58.8 mmHg (80.0-100.0); Potassium Level - ABG 5.2 mmol/L (3.5-5.0); Total Hemoglobin 8.9 g/dL (14-18)
--- NOTE | 2019-09-29 17:16 | PM.CONSULT ---
Providers/Reason For Consult Consulting Physican/Specialty*: Pulmonology Reason for Consult*: Worsening pneumonia concern for bronchoscopy requirement Attending Physician: Sae Silva MD Primary Care Provider: Sae Silva MD History of Present Illness History of Present Illness Parish Brewer is a 78 year old male who was admitted to the hospital with concerns for pneumonia. The patient initially presented to the hospital on September 27 after suffering a fall and underwent extensive work-up and subsequently discharged home. The chest x-ray at that time revealed bilateral vascular prominence consistent with fluid overload. The patient later presented to the hospital with altered mental status and worsening shortness of breath. The patient was diagnosed with a pneumonia and was admitted to the hospital. The admission chest x-ray on September 28 was read at right lower lobe pneumonia and the patient was admitted to the hospital. However on review of the chest x-ray I believe the patient has incomplete right upper lobe atelectasis. The area that is thought to be consolidation does not have any air bronchograms and there is no visible lung tissue which would be consistent with an atelectatic process. There is also loss of lung volume on the right side with mediastinal shift to the right. The patient had a CT scan of the chest this morning. The CT scan revealed bilateral small pleural effusion, interlobular septal thickening and groundglass opacities and occasional areas of infiltrate. No definitive lobar consolidation was noted. These changes are all suggestive of fluid overload. The patient tells me that he does not have diagnosis of heart failure. He had an echocardiogram done in August of last year which showed normal ejection fraction with grade 1 diastolic dysfunction. There was no significant valvular abnormalities. The patient has a history of liver cirrhosis and takes spironolactone and Lasix at home. The patient does not have any elevation of the white count. He does not have any fever. The patient was seen and examined today. The patient was visibly short of breath, tachypneic. He started desaturating prior to my arrival to the room and the blood gas showed hypoxia with a PO2 of 58. I had performed a bedside ultrasound which revealed bilateral B-lines consistent with interstitial presence of fluid in the lung. The patient also had small bilateral pleural effusion as well as perihepatic fluid on the right side. The pleural effusion appeared simple there was no sign of complexity on ultrasound. The IVC was dilated. The hepatic echotexture was coarse and there was splenomegaly. There was good cardiac contractility on her ultrasound. The patient has a history of COPD and is on multiple inhalers at home. Review of Systems Narrative: The review of system is limited because of the patient's clinical condition. The patient complained of chest pain, shortness of breath. He denied any nausea vomiting or abdominal pain. The patient was visibly in distress. Meds/Allergies Home Medications and Allergies Home Medications Medication Instructions Recorded Confirmed Type Robaxin-750 500 mg PO BID PRN 09/27/19 09/28/19 History albuterol sulfate 2.5 mg INHALATION Q4H PRN 09/27/19 09/28/19 History albuterol sulfate [ProAir HFA] 2 puff INHALATION QID PRN 09/27/19 09/28/19 History allopurinol 300 mg PO BEDTIME 09/27/19 09/28/19 History amlodipine [Norvasc] 10 mg PO BEDTIME 09/27/19 09/28/19 History aspirin [Aspir-81] 81 mg PO DAILY 09/27/19 09/28/19 History budesonide-formoterol [Symbicort] 2 puff INHALATION BID 09/27/19 09/28/19 History fluticasone propionate [Flonase 1 spray INTRANASAL DAILY PRN 09/27/19 09/28/19 History Allergy Relief] furosemide [Lasix] See Rx Instructions .ROUTE .COMPLEX 09/27/19 09/28/19 History gabapentin See Rx Instructions .ROUTE .COMPLEX 09/27/19 09/28/19 History insulin aspart U-100 [Novolog See Rx Instructions .ROUTE .COMPLEX 09/27/19 09/28/19 History Flexpen U-100 Insulin] insulin glargine [Lantus Solostar 46 unit SUBCUT BEDTIME 09/27/19 09/28/19 History U-100 Insulin] multivitamin [Multiple Vitamins] 1 tab PO DAILY 09/27/19 09/28/19 History oxycodone 5 mg PO BID PRN 09/27/19 09/28/19 History pantoprazole [Protonix] 40 mg PO DAILY 09/27/19 09/28/19 History paroxetine HCl [Paxil] 40 mg PO BEDTIME 09/27/19 09/28/19 History potassium chloride 20 meq PO DAILY 01/06/20 01/07/20 History pravastatin 10 mg PO BEDTIME 09/27/19 09/28/19 History propranolol 20 mg PO BID 09/27/19 09/28/19 History spironolactone 25 mg PO DAILY 09/27/19 09/28/19 History tiotropium bromide [Spiriva 1 puff INHALATION DAILY 09/27/19 09/28/19 History Respimat] trazodone 50 mg PO BEDTIME 09/27/19 09/28/19 History Allergies Allergy/AdvReac Type Severity Reaction Status Date / Time lisinopril Allergy ALGY-Rash Verified 09/28/19 10:46 tizanidine Allergy Unknown Verified 09/28/19 10:46 Current Medications Current Medications Generic Name Dose Route Start Last Admin Trade Name Freq PRN Reason Stop Dose Admin Albuterol Sulfate 2.5 mg 09/28/19 20:30 09/29/19 16:23 Albuterol INHALATION 2.5 mg Q4H.RESPIRATORY PRN Administration Shortness Of Breath Allopurinol 300 mg 09/28/19 21:00 09/28/19 21:04 Zyloprim PO 300 mg BEDTIME [place] Administration Amlodipine Besylate 10 mg 09/28/19 21:00 09/28/19 21:04 Norvasc PO 10 mg BEDTIME [place] Administration Aspirin 81 mg 09/29/19 09:00 09/29/19 09:41 Aspirin Ec PO 81 mg DAILY [place] Administration Atorvastatin Calcium 10 mg 09/28/19 21:00 09/28/19 21:04 Lipitor PO 10 mg BEDTIME [place] Administration Enoxaparin Sodium 40 mg 09/28/19 20:30 09/28/19 21:04 Lovenox SUBCUT 40 mg Q24H [place] Administration Furosemide 60 mg 09/29/19 07:30 09/29/19 08:26 Lasix IVP 60 mg Q12H [place] Administration Gabapentin 100 mg 09/29/19 06:00 09/29/19 05:36 Neurontin PO 100 mg QAM [place] Administration Gabapentin 300 mg 09/28/19 21:00 09/28/19 21:04 Neurontin PO 300 mg BEDTIME [place] Administration Vancomycin HCl 1 mg/ Sodium 250 mls @ 250 mls/hr 09/28/19 22:00 09/29/19 00:07 Chloride IV 250 mls/hr Q24H [place] Administration Insulin Aspart 0 unit 09/29/19 08:00 09/29/19 12:33 Novolog SUBCUT 16 unit TIDWM [place] Administration Protocol Insulin Aspart 0 unit 09/29/19 08:00 09/29/19 12:00 Novolog SUBCUT Not Given WM&BEDTIME [place] Protocol Insulin Glargine 46 unit 09/28/19 21:00 09/28/19 21:37 Lantus SUBCUT 46 unit BEDTIME [place] Administration Nitroglycerin 0.4 mg 09/29/19 16:21 09/29/19 16:41 Nitrostat SUBLINGUAL 1 tab Q5M PRN Administration CHEST PAIN Pantoprazole Sodium 40 mg 09/29/19 09:00 09/29/19 09:41 Protonix PO 40 mg DAILY [place] Administration Paroxetine HCl 40 mg 09/28/19 21:00 09/28/19 21:04 Paxil PO 40 mg BEDTIME [place] Administration Propranolol HCl 20 mg 09/29/19 09:00 09/29/19 09:41 Inderal PO 20 mg BID [place] Administration Fluticasone/Salmeterol 1 puff 09/29/19 10:35 09/29/19 09:35 Advair Diskus 500-50 INHALATION 1 puff BID.RESPIRATORY [place] Administration Spironolactone 25 mg 09/29/19 09:00 09/29/19 09:41 Aldactone PO 25 mg DAILY [place] Administration Trazodone HCl 50 mg 09/28/19 21:00 09/28/19 21:04 Desyrel PO 50 mg BEDTIME [place] Administration PFSH Acute PFSH: Statuses (acute, chronic, etc) shown below reflect problem list status as previously entered and may not be historically accurate Surgical History H/O inguinal hernia repair (Acute) H/O right knee surgery (Acute) History of appendectomy (Acute) History of cataract surgery (Acute) Social History Smoking and tobacco status: former smoker Vitals/I&O/Wt Last Vital Signs Temp 97.7 F 09/29/19 15:26 Pulse 95 09/29/19 16:33 Resp 18 09/29/19 16:33 BP 119/73 09/29/19 15:26 Pulse Ox 91 09/29/19 16:33 09/29/19 09/29/19 09/29/19 06:59 14:59 22:59 Intake Total 866.667 / 2066.667 360 / 360 Output Total 200 / 1650 Balance 666.667 / 416.667 360 / 360 Weight last 48 hrs Weight 229 lb Weight 229 lb 6.4 oz Weight 220 lb Physical Exam Narrative: EXAM NARRATIVE: General: Patient is awake alert and oriented, in moderate distress from shortness of breath HEENT: Pupil bilateral symmetric, light and accommodation reflex present, extraocular muscle movement intact, no deformity of the nose Neck: Elevated JVP, no cervical or supraclavicular lymphadenopathy. Respiratory: Inspection: No visible deformity of the chest wall, no scar, no mass lesion Palpation: Trachea is mildly deviated to the right, bilateral symmetric expansion Percussion: Bilateral tympanic percussion note anterior Auscultation: Bilateral crackles in the posterior bases, no wheezing or rhonchi Cardiovascular: Regular rate and rhythm, S1-S2 present, no murmur, no right ventricular heave, bilateral peripheral edema Abdomen: Soft, nontender, distended from obesity, positive bowel sound Musculoskeletal: No obvious joint deformity Skin: No rash, no evidence of erythema nodosum or multiforme. Neuro: Mental status is normal, no gross cranial nerve deficit, normal motor function Data Micro: Micro: Microbiology 09/29/19 01:05 Gram Stain - Final Sputum - Expector ated Sputum Other Data: Other data: As described in history of present illness, I have reviewed the patient's CT scan and previous radiologic studies as well as echocardiogram. There is no evidence of lobar consolidation. The presence of interlobular septal thickening with groundglass opacity and focal infiltrate with bilateral pleural effusion is consistent with fluid overload. A&P Assessment and plan (1) Acute respiratory failure with hypoxia: Acute hypoxic respiratory failure is possibly secondary to pulmonary edema. I am unsure about how much pneumonia is contributing to his respiratory failure. The patient does not have any fever, he has normal white count, no significant sputum production which would be inconsistent with a diagnosis of pneumonia. He is having hemoptysis which would also be consistent with acute pulmonary edema. His CT scan findings is also consistent with pneumonia. Bedside ultrasound also confirmed the finding. I will start the patient on BiPAP to provide positive intrathoracic pressure. This will reduce the preload as well as help with afterload reduction. I am giving the patient an additional dose of 80 mg of IV Lasix. We will put in a Pablo catheter for accurate intake and output measurement. Given the patient's history of liver cirrhosis, I have increased the dose of spironolactone to 25 mg twice daily. Based on the patient's urine output he might need a BMP tonight to keep an eye on the potassium level. I believe with the diuresis and noninvasive positive pressure ventilation the patient is going to feel significantly better. Status: Acute Code(s): J96.01 - Acute respiratory failure with hypoxia (2) Pulmonary edema: The cause of the patient's acute pulmonary edema would probably be heart failure with preserved ejection fraction. Given the patient's age, diabetes and obesity diastolic dysfunction would not be uncommon in this patient population. The patient will need optimization of his diuretic regimen prior to his discharge. Status: Acute Code(s): J81.1 - Chronic pulmonary edema (3) COPD (chronic obstructive pulmonary disease): Patient has diagnosis of COPD. However currently the patient is not having an exacerbation. I have discontinued his inhaler regimen and started him on standing dose of DuoNeb and Pulmicort. Status: Acute Code(s): J44.9 - Chronic obstructive pulmonary disease, unspecified (4) Pneumonia: The patient does not have any dense consolidation. His clinical picture is not consistent with MRSA pneumonia. I am going to discontinue the vancomycin. We will get a nasal MRSA PCR. The sensitivity of MRSA PCR of the nose is 98% for a negative diagnosis of MRSA pneumonia. I am also getting a procalcitonin level. We will continue with ceftriaxone and azithromycin for the time being. The sputum culture is growing gram-positive cocci however there is no species yet. Patient could be having a component of bronchopneumonia. There is always a concern for aspiration event given his altered mental status recently. The dense consolidation that was air on the chest x-ray was secondary to atelectasis and there is no evidence of air bronchogram on the chest x-ray as well as the CT scan that was obtained today. Status: Acute Qualifiers: Laterality: right Lung location: lower lobe of lung Pneumonia type: due to unspecified organism Qualified Code(s): J18.9 - Pneumonia, unspecified organism Code(s): J18.9 - Pneumonia, unspecified organism Consult Attestations Other Attestations: Other Attestations: Thank you for the consultation. I will continue to follow the patient. Coding Level of Care Code Acute Porcelain Enameler for Felipa Fwd Diagnoses Acute respiratory failure with hypoxia J96.01 Pulmonary edema J81.1 COPD (chronic obstructive pulmonary disease) J44.9 Pneumonia J18.9 Laterality: right Lung location: lower lobe of lung Pneumonia type: due to unspecified organism
[2019-09-29] MEDS: FUROsemide 10 mg/mL SDV 10mL 80 MG IVP (17:19)
--- NOTE | 2019-09-29 17:47 | PC.RESP ---
BIPAP ID==[id number]
[2019-09-29 17:53] LABS: Troponin T (5th) Once 326 ng/mL (0-15)
[2019-09-29 17:57] LABS: Procalcitonin 1.01 ng/mL (0-0.8)
--- NOTE | 2019-09-29 18:00 | ECG_ITS ---
Measurements Intervals [place] Rate: 89 P: 51 [place]: 176 QRS: -33 QRSD: 137 T: -23 QT: 383 QTc: 466 SINUS RHYTHM MARKED LEFT AXIS DEVIATION [QRS AXIS < -30] RIGHT BUNDLE BRANCH BLOCK POSSIBLE LATERAL MYOCARDIAL INFARCTION, PROBABLY OLD Compared to ECG 09/05/2019 15:24:08 Myocardial infarct finding now present Electronically Signed On 09-30-2019 14:10:49 ENTRY LEVEL MACHINE OPERATOR by Chani Gordon M.D. [id number]
--- NOTE | 2019-09-29 19:21 | PC.RESP ---
This RT found patient on bedside commode without any oxygen. Bipap machine was turned off. This RT placed BIPAP on patient immediately. Pt o2 sat was 85%. Patient improved to 91% after placing on BIPAP.
[2019-09-29 19:37] LABS: Blood Gas Drawn By ED; Oxygen Device NC
[2019-09-29] MEDS: ipratropium-albuterol 3 mL Neb INHALATION (20:18)
[2019-09-29] MEDS: budesonide 0.5 mg/2 mL Neb INHALATION (20:18)
--- NOTE | 2019-09-29 20:22 | PC.RESP ---
decreased to 45%, sats 97
[2019-09-29 20:57] LABS: Glucose Point of Care 345 mg/dL (70-110)
[2019-09-29 21:21] LABS: Troponin 5 2HR 390.6 ng/mL (0-15)
--- NOTE | 2019-09-29 21:55 | PC.NURSE ---
received from MS. Awake alert on bipap. Dyspnea with exertion. Skin pwd. Monitor reading very low blood pressures that do not correspond with patients appearance. Monitoring closely and awaiting Dr Arteaga arrival
--- NOTE | 2019-09-29 22:13 | ECG_ITS ---
Measurements Intervals [place] Rate: 93 P: 59 [place]: 163 QRS: -36 QRSD: 138 T: -20 QT: 363 QTc: 454 SINUS RHYTHM MARKED LEFT AXIS DEVIATION [QRS AXIS < -30] RIGHT BUNDLE BRANCH BLOCK Compared to ECG 09/05/2019 15:24:08 No significant change Electronically Signed On 09-30-2019 14:01:29 BROKERAGE CLERK by Chani Gordon M.D. [id number]
--- NOTE | 2019-09-29 22:15 | PC.NURSE ---
Dr Silva here. Spouse at bedside. Spouse reports bp is always very low in the right arm so bp cuff moved to left arm and pressures are significantly better
[2019-09-29] MEDS: enoxaparin 40 mg/0.4 mL Syringe SUBCUT (22:29)
[2019-09-29] MEDS: insulin glargine 100 units/1 mL 46 UNIT SUBCUT (22:29)
[2019-09-29] MEDS: PARoxetine 20 mg Tablet 40 MG PO (22:29)
[2019-09-29] MEDS: gabapentin 300 mg Capsule PO (22:29)
[2019-09-29] MEDS: trazodone 50 mg Tablet PO (22:32)
[2019-09-29] MEDS: atorvastatin 40 mg Tablet 10 MG PO (22:32)
[2019-09-29] MEDS: allopurinol 300 mg Tablet PO (22:33)
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
[2019-09-29] MEDS: metOLazone 5 MG Tablet PO (23:31)
[2019-09-29] MEDS: aspirin 81 mg EC Tablet 243 MG PO (23:31)
[2019-09-29] MEDS: enoxaparin 100 mg/mL Syringe 60 MG SUBCUT (23:32)
[2019-09-30] VITALS (27 sets, daily range): BP systolic 118–143; BP diastolic 51–96; PULSE 86–110; RESP 15–32; TEMP 37.1–38.9; O2SAT 9–98
[2019-09-30] MEDS: ipratropium-albuterol 3 mL Neb INHALATION ×6 (00:04→23:45)
[2019-09-30] MEDS: bumetanide 0.25 mg/mL SDV 10 mL 1 MG IV (00:30)
[2019-09-30] MEDS: piperacillin-tazobactam 3.375 GM in sodium chloride 0.9% (plus) 50 ML IV ×3 (00:49→21:02)
[2019-09-30 01:14] LABS: Troponin 5 6HR 465.8 ng/L (0-15)
[2019-09-30 01:15] LABS: Troponin 5 6HR Delta 139.8 ng/L (0-12)
[2019-09-30] MEDS: oxyCODONE 5 mg IR Tab/Cap PO (01:37)
--- NOTE | 2019-09-30 02:13 | ECG_ITS ---
Measurements Intervals [place] Rate: 109 P: 76 [place]: 162 QRS: -41 QRSD: 132 T: -29 QT: 332 QTc: 448 SINUS TACHYCARDIA MARKED LEFT AXIS DEVIATION [QRS AXIS < -30] RIGHT BUNDLE BRANCH BLOCK Compared to ECG 09/05/2019 15:24:08 Sinus rhythm no longer present Electronically Signed On 09-30-2019 13:59:14 OUTBOUND SALES PROFESSIONAL by Chani Gordon M.D. [id number]
[2019-09-30 04:59] LABS: Basophils % 0.2 %; Eosinophils % 0.5 %; Hematocrit 28.3 % (42.0-52.0); Hemoglobin 8.6 g/dL (11.7-16.6); Lymphocytes # 0.5 10^3/uL (0.8-4.8); Lymphocytes % 10.9 %; Mean Corpuscular HGB Conc 30.4 g/dL (30.0-36.0); Mean Corpuscular Hemoglobin 27.9 pg (28.0-34.0); Mean Corpuscular Volume 91.9 fL (80-94); Mean Platelet Volume 10.2 fL (7.4-10.4); Monocytes # 0.5 10^3/uL (0.2-0.9); Monocytes % 11.8 %; Neutrophils # 3.1 10^3/uL (1.8-7.7); Neutrophils % 75.9 %; Nucleated Red Blood Cells % 0.5 %; Platelet Count 139 10^3/cmm (130-400); Red Blood Count 3.08 10^6/uL (4.1-5.3); Red Cell Distribution Width 14.9 % (12.1-15.1); White Blood Count 4.1 10^3/uL (4.0-10.0)
[2019-09-30 05:35] LABS: Alanine Aminotransferase 22 U/L (0-41); Albumin Level 4.4 g/dL (3.5-5.2); Alkaline Phosphatase 87 IU/L (40-130); Anion Gap 19.4 (5-19); Aspartate Amino Transferase 56 U/L (0-40); Blood Urea Nitrogen 48 mg/dL (8-23); Calcium 9.4 mg/Dl (8.8-10.2); Carbon Dioxide 26 mmol/L (22-29); Chloride 98 mmol/L (98-107); Globulin 2.7 g/dL (1.3-4.6); Glucose 174 mg/dL (74-106); Magnesium 1.6 mg/dL (1.7-2.3); NT Pro B Type Natriuretic Pept 31965 pg/mL (0-450); Phosphorus 2.7 mg/dL (2.5-4.5); Potassium 4.4 mmol/L (3.5-5.1); Sodium 139 mmol/L (136-145); Total Bilirubin 0.5 mg/dL (0.15-1.2); Total Protein 7.1 g/dL (6.6-8.7)
[2019-09-30 06:05] LABS: INR 1.27 (0.8-1.2)
[2019-09-30] MEDS: gabapentin 100 mg Capsule PO (06:43)
[2019-09-30] MEDS: budesonide 0.5 mg/2 mL Neb INHALATION ×2 (07:15→20:04)
--- NOTE | 2019-09-30 08:08 | PM.PN ---
Subjective Subjective: Interval history: The patient was moved to the ICU overnight secondary to concern for hypotension with chest pains and increasing troponins. The patient is currently sleeping, however denies any chest pains. Vitals/I&O/Wt Last Vital Signs Temp 101.4 F H 09/30/19 06:00 Pulse 104 H 09/30/19 07:17 Resp 24 H 09/30/19 07:17 BP 134/91 09/30/19 06:00 Pulse Ox 95 09/30/19 07:17 09/29/19 09/30/19 09/30/19 22:59 06:59 14:59 Intake Total 400 / 760 50 / 810 Output Total 1050 / 1050 600 / 600 Balance 400 / 760 -1000 / -240 -600 / -600 Weight last 48 hrs Weight 103.873 kg Weight 104.054 kg Physical Exam Const: GENERAL APPEARANCE: comfortable Resp: AUSCULTATION: crackles, rhonchi and wheezes Cardio: COMMON NORMALS: regular rate and regular rhythm RATE: regular rate and tachycardic RHYTHM: regular rhythm HEART SOUNDS: no murmurs GI: OTHER: Distended abdomen, mild pain in the left upper quadrant. Bruising noted on the anterior right abdomen from prior fall. Extremity: NARRATIVE EXTREMITY EXAM: Trace edema in the bilateral lower extremities Data Micro: Micro: Microbiology 09/29/19 01:05 Gram Stain - Final Sputum - Expector ated Sputum A&P Additional A&P Information Additional A&P Information: 1. Pneumonia: There is a question about whether this is aspiration pneumonia or that the fever is coming from another source. Continue with recommendations per Dr. Kumar. The patient has a fever today. Currently the patient is on azithromycin and Zosyn. 2. COPD (chronic obstructive pulmonary disease): Patient has some wheezing, however is not significant at this time. Continue with respiratory therapy and add steroids if not improving. 3. Anemia: Hemoglobin has slightly improved to 8.4. This is likely dilutional in terms of it being lower than previously. 4. Diabetes: Insulin sliding scale and Levemir. 5. HTN (hypertension): Stable for now 6. Fluid overload: Continue with IV Lasix and BiPAP. His renal output is not great at this time. We will continue to follow. 7. Altered mental status -this had improved with the above treatments, however is starting to worsen again. Likely secondary to infection. 8. Elevated troponin the patient has elevated troponin likely secondary to his underlying infection. -Dr. Gordon has been consulted and we will discontinue treatment dose Lovenox at this time. 9. Diarrhea -we will check a C. difficile and started on vancomycin until results are back. 10. Prophylaxis -currently the patient is on Lovenox, however we will need to watch for bleeding signs. Attestations Medical Necessity Statement*: The patient continues need inpatient care as he is being given BiPAP, his fluid overload, pneumonia. He will be here for greater than 2 midnights. Coding Level of Care Code Acute Inspector Quality Assurance for Felipa Feng
[2019-09-30 08:17] LABS: Glucose Point of Care 214 mg/dL (70-110)
--- NOTE | 2019-09-30 09:39 | XR_ITS ---
WS: [id number] CHEST XRAY TECHNIQUE: Portable chest. CLINICAL INFORMATION: Pneumonia and respiratory failure COMPARISON: FINDINGS: Heart: Cardiomegaly. Aortic calcification. Lungs: Chronic emphysematous changes. Mild pulmonary vascular congestion. Volume loss left lung base with left basilar atelectasis. Elevation left hemidiaphragm. Consolidation right lower lobe has impro stephenie since yesterday. Small bilateral pleural effusions. Bones: Normal visualized bony structures. XR/XR chest 1V portable [id number] IMPRESSION: 1. Hepatomegaly with mild pulmonary vascular congestion. 2. Previously described consolidation in the right lung base has improved. 3. Trace pleural fluid.
--- NOTE | 2019-09-30 09:40 | CT_ITS ---
WS: [id number] CT scan of the abdomen and pelvis without IV contrast. Additional two-dimensional coronal and sagitta l reconstruction was performed. 09/30/2019 Clinical Data: suspected intraabdominal sepsis Comparison: None. DLP: 1863.[address] scans at [facility] use at least one of these dose optimization techniques: automat ed exposure control; mA and/or kV adjustment per patient size (includes targeted exams where dose is matched to clinical indication); or iterative reconstruction. Findings: There are small bilateral effusions with more effusion on the right than the left. The heart is enlar ged. Mitral valve calcification is seen. The gallbladder, adrenal glands and pancreas are normal. The liver shows no masses but there is an i rregular contour which can be seen with cirrhosis. Spleen is enlarged to 16.3 cm. The kidneys show n o masses, calculi or hydronephrosis. The right kidney has a lateral superior 4.5 cm cyst. The abdomin al aorta is normal in size and calcification in the wall.. No appendicitis or diverticulitis is seen. There is contrast in the ascending colon and there is thi ckening of the wall which can be seen with colitis from vascular, inflammatory or drug related causes . No abscess, adenopathy, ascites, mass, obstruction or free air is seen. The bladder has a catheter within. No inguinal hernia is seen. The bones of the lower thorax, lumbar spine, pelvis, and hips show osteoarthritic change of the lower thoracic and all lumbar vertebral bodies.. 1. Probable cirrhosis of the liver with splenomegaly. 2. Colitis of the ascending colon with thickening of the bowel wall. 3. Negative for intra-abdominal abscess or mass. CT/CT abdomen con [id number] Impression:
[2019-09-30] MEDS: iohexol 300 mg/mL 50 mL Btl IV (10:05)
[2019-09-30] MEDS: FUROsemide 10 mg/mL SDV 10mL 60 MG IVP ×2 (10:30→20:15)
[2019-09-30] MEDS: magnesium sulfate premix 2 GM/50 ML PIGGYBACK IV (10:31)
[2019-09-30 11:34] LABS: Glucose Point of Care 239 mg/dL (70-110)
--- NOTE | 2019-09-30 13:34 | PM.CONSULT ---
Providers/Reason For Consult Consulting Physican/Specialty*: Dr. Gordon, cardiology Reason for Consult*: Chest pain and elevated troponin Attending Physician: Sae Silva MD Primary Care Provider: Sae Silva MD History of Present Illness History of Present Illness Parish Brewer is a 78 year old male with past medical history of hypertension, IDDM, GERD, liver cirrhosis on lasix and spironolactone, COPD and no known history of CHF who initially presented to the hospital on September 27 after a fall and was subsequently discharged home after work-up in ER. Shortly thereafter, he presented to the ER with altered mental status and worsening shortness of breath. He was diagnosed with right lower lobe pneumonia and was admitted to the hospital. Dr. Kumar was contacted for acute hypoxic respiratory failure and he was placed on BiPAP. He was also started on IV Lasix and was transferred to ICU for further management. Last night there was some concern with chest discomfort, Dr. Kumar was contacted for acute hypoxic respiratory failure and he was placed on BiPAP. He was also started on IV Lasix and was transferred to ICU for further management. Last night there was some concern with chest discomfort, elevated troponin and hypotension and hence I was asked to assist in further management. Yesterday his troponin peaked at ~460. His chest pain resolved after receiving Lasix and being placed on BiPAP. He was febrile with temperature of 101 last night he has been already started on Zosyn and azithromycin with concern for possible aspiration. Blood cultures are still pending. Review of Systems General: Reports: ROS unobtainable due to mental status Meds/Allergies Home Medications and Allergies Home Medications Medication Instructions Recorded Confirmed Type Robaxin-750 500 mg PO BID PRN 09/27/19 09/28/19 History albuterol sulfate 2.5 mg INHALATION Q4H PRN 09/27/19 09/28/19 History albuterol sulfate [ProAir HFA] 2 puff INHALATION QID PRN 09/27/19 09/28/19 History allopurinol 300 mg PO BEDTIME 09/27/19 09/28/19 History amlodipine [Norvasc] 10 mg PO BEDTIME 09/27/19 09/28/19 History aspirin [Aspir-81] 81 mg PO DAILY 09/27/19 09/28/19 History budesonide-formoterol [Symbicort] 2 puff INHALATION BID 09/27/19 09/28/19 History fluticasone propionate [Flonase 1 spray INTRANASAL DAILY PRN 09/27/19 09/28/19 History Allergy Relief] furosemide [Lasix] See Rx Instructions .ROUTE .COMPLEX 09/27/19 09/28/19 History gabapentin See Rx Instructions .ROUTE .COMPLEX 09/27/19 09/28/19 History insulin aspart U-100 [Novolog See Rx Instructions .ROUTE .COMPLEX 09/27/19 09/28/19 History Flexpen U-100 Insulin] insulin glargine [Lantus Solostar 46 unit SUBCUT BEDTIME 09/27/19 09/28/19 History U-100 Insulin] multivitamin [Multiple Vitamins] 1 tab PO DAILY 09/27/19 09/28/19 History oxycodone 5 mg PO BID PRN 09/27/19 09/28/19 History pantoprazole [Protonix] 40 mg PO DAILY 09/27/19 09/28/19 History paroxetine HCl [Paxil] 40 mg PO BEDTIME 09/27/19 09/28/19 History potassium chloride 20 meq PO DAILY 09/27/19 09/28/19 History pravastatin 10 mg PO BEDTIME 09/27/19 09/28/19 History propranolol 20 mg PO BID 09/27/19 09/28/19 History spironolactone 25 mg PO DAILY 09/27/19 09/28/19 History tiotropium bromide [Spiriva 1 puff INHALATION DAILY 09/27/19 09/28/19 History Respimat] trazodone 50 mg PO BEDTIME 09/27/19 09/28/19 History Allergies Allergy/AdvReac Type Severity Reaction Status Date / Time lisinopril Allergy ALGY-Rash Verified 09/28/19 10:46 tizanidine Allergy Unknown Verified 09/28/19 10:46 Current Medications Current Medications Generic Name Dose Route Start Last Admin Trade Name Freq PRN Reason Stop Dose Admin Albuterol Sulfate 2.5 mg 09/28/19 20:30 09/29/19 16:23 Albuterol INHALATION 2.5 mg Q4H.RESPIRATORY PRN Administration Shortness Of Breath Albuterol/Ipratropium 3 ml 09/29/19 20:00 09/30/19 13:01 Duoneb INHALATION 3 ml Q4H.RESPIRATORY [place] Administration Allopurinol 300 mg 09/28/19 21:00 09/29/19 22:33 Zyloprim PO 300 mg BEDTIME [place] Administration Amlodipine Besylate 10 mg 09/28/19 21:00 09/29/19 22:41 Norvasc PO Not Given BEDTIME [place] Aspirin 81 mg 09/29/19 09:00 09/29/19 09:41 Aspirin Ec PO 81 mg DAILY [place] Administration Atorvastatin Calcium 10 mg 09/28/19 21:00 09/29/19 22:32 Lipitor PO 10 mg BEDTIME [place] Administration Budesonide 0.5 mg 09/29/19 20:00 09/30/19 07:15 Pulmicort INHALATION 0.5 mg BID.RESPIRATORY [place] Administration Enoxaparin Sodium 40 mg 09/28/19 20:30 09/29/19 22:29 Lovenox SUBCUT 40 mg Q24H [place] Administration Furosemide 60 mg 09/29/19 07:30 09/30/19 10:30 Lasix IVP 60 mg Q12H [place] Administration Gabapentin 100 mg 09/29/19 06:00 09/30/19 06:43 Neurontin PO 100 mg QAM [place] Administration Gabapentin 300 mg 09/28/19 21:00 09/29/19 22:29 Neurontin PO 300 mg BEDTIME [place] Administration Piperacillin Sod/Tazobactam 50 mls @ 12.5 mls/hr 09/29/19 21:30 09/30/19 11:44 Sod 3.375 gm/ Sodium Chloride IV 12.5 mls/hr Q8H [place] Administration Protocol Insulin Aspart 0 unit 09/30/19 12:00 09/30/19 11:45 Novolog SUBCUT 6 unit TIDWM [place] Administration Protocol Insulin Glargine 46 unit 09/28/19 21:00 09/29/19 22:29 Lantus SUBCUT 46 unit BEDTIME [place] Administration Metolazone 5 mg 09/29/19 21:35 09/29/19 23:31 Zaroxolyn PO 5 mg DAILY [place] Administration Nitroglycerin 0.4 mg 09/29/19 16:21 09/29/19 16:41 Nitrostat SUBLINGUAL 1 tab Q5M PRN Administration CHEST PAIN Oxycodone HCl 5 mg 09/28/19 20:27 09/30/19 01:37 Oxycodone Ir PO 5 mg Q4H PRN Administration PAIN Pantoprazole Sodium 40 mg 09/29/19 09:00 09/29/19 09:41 Protonix PO 40 mg DAILY [place] Administration Paroxetine HCl 40 mg 09/28/19 21:00 09/29/19 22:29 Paxil PO 40 mg BEDTIME [place] Administration Propranolol HCl 20 mg 09/29/19 09:00 09/29/19 18:37 Inderal PO 20 mg BID [place] Administration Fluticasone/Salmeterol 1 puff 09/29/19 10:35 09/29/19 20:20 Advair Diskus 500-50 INHALATION 1 puff BID.RESPIRATORY [place] Administration Spironolactone 25 mg 09/29/19 18:00 09/29/19 18:38 Aldactone PO 25 mg BID [place] Administration Trazodone HCl 50 mg 09/28/19 21:00 09/29/19 22:32 Desyrel PO 50 mg BEDTIME [place] Administration PFSH Acute PFSH: Statuses (acute, chronic, etc) shown below reflect problem list status as previously entered and may not be historically accurate Medical History (Updated 10/01/19 @ 12:03 by Chani Gordon MD) Clavicle fracture (Inactive) Fall (Inactive) Surgical History H/O inguinal hernia repair (Acute) H/O right knee surgery (Acute) History of appendectomy (Acute) History of cataract surgery (Acute) Social History Smoking and tobacco status: former smoker Vitals/I&O/Wt Last Vital Signs Temp 101.3 F H 09/30/19 10:00 Pulse 97 09/30/19 13:04 Resp 20 H 09/30/19 13:04 BP 131/67 09/30/19 10:00 Pulse Ox 93 09/30/19 13:04 09/29/19 09/30/19 09/30/19 22:59 06:59 14:59 Intake Total 400 / 760 50 / 810 50 / 50 Output Total 1050 / 1050 600 / 600 Balance 400 / 760 -1000 / -240 -550 / -550 Weight last 48 hrs Weight 229 lb Weight 229 lb 6.4 oz Intake & Output 09/28/19 09/29/19 09/30/19 10/01/19 06:59 06:59 06:59 06:59 Intake Total 2066.667 / 2066.667 810 / 810 50 / 50 Output Total 1650 / 1650 1050 / 1050 600 / 600 Balance 416.667 / 416.667 -240 / -240 -550 / -550 Weight 229 lb 6.4 oz 229 lb 233 lb Cumulative I&O 09/28/19 07:47 thru 09/30/19 11:48 Intake Total 2926.667 Output Total 3300 Balance -373.333 Physical Exam Narrative: EXAM NARRATIVE: GENERAL: Obese man lying in bed drowsy at the time of evaluation HEENT: Pupils equal round reactive to light. + pallor, no icterus. NECK: + JVD CARDIOVASCULAR SYSTEM: S1-S2 regular. No murmur rubs or gallops. RESPIRATORY SYSTEM: coarse bilateral breath with posterior mid-basal crackles. No wheezes or rubs heard. No use of accessory muscles. ABDOMEN: Soft, nontender and obese. Normal bowel sounds present. EXTREMITIES: No cyanosis or clubbing. + edema. 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 for full findings IMAGE PROTOCOL Rest/Stress 1 Dobutamine Day Radiopharmaceutical Dose (mCi) Administration Site Administered by Rest: Tc-99m 10.9 IV TED [place] Stress:Tc-99m 33.0 IV TED [place] Imaging Date & Time Inj to Img Time (min) Camera Used Rest: 05-Jul-2019 60 Discovery 630 Stress: 05-Jul-2019 15 Discovery 630 Radiopharmaceutical was injected at 86 % maximum heart rate. Supine position only as patient was unable to lay prone. SPECT RESULTS Technical Quality: Good Raw Data Analysis: Normal Image Corrections: No attenuation or motion correction applied Summed Stress Score: 9 Summed Rest Score: 10 Summed Difference Score: 2 PERFUSION FINDINGS Moderate area of severely decreased tracer uptake in the basal mid and apical inferior, apical lateral, apical anterior and the LV apex with there is some subtle areas of reversible defect in the inferior wall region FUNCTIONAL RESULTS (calculated via Gated SPECT) Stress Image LV EF (%): 54 Stress EDV (mL):171 TID: 1.08 Stress ESV (mL):78 FUNCTIONAL FINDINGS: Segmental wall motion analysis revealing no gross wall motion abnormalities. IMPRESSIONS #1. Myocardial perfusion imaging revealing moderate area of severely decreased tracer uptake in the inferior wall and apical segments with a subtle area of reversibility, suggestive of myocardial scarring mostly in the distribution of the right coronary artery with the very small areas of stephan-infarction ischemia. #2. Normal LV ejection fraction of 54%. #3. LV wall motion analysis revealing no gross wall motion abnormalities. #4. Mildly dilated LV cavity, with an end systolic volume of 78 mL No similar previous studies are available for comparison Carotid duplex: Radiologist's impression: 05 July 2019 FINDINGS Comparison:. CTA neck 04/28/19. Diffuse, severe bilateral scattered calcified plaque and intimal thickening throughout the common carotid arteries and extending through the bifurcation. Marked elevation of velocities in the ICA's. Antegrade vertebral arteries. Stenosis ECA's , bilateral. CONCLUSIONS Left ICA stenosis 70-99%. Right ICA stenosis 70-99%. Severe atherosclerosis bilateral carotid arteries, corresponds to prior CTA findings of high grade stenosis. Echo: I personally reviewed and interpreted this imaging study as follows: My impression: Normal left ventricular size and systolic function, EF 65% . No regional wall motion abnormalities. Mild left ventricular hypertrophy. Grade I/IV diastolic dysfunction (abnormal relaxation filling pattern), normal to mildly elevated filling pressures. Moderate mitral annular calcification.No other significant valvular abnormality. Radiologist's impression: EKG^: EKG 3: I personally reviewed and interpreted this EKG as follows: My Interpretation: EKG with sinus rhythm with right bundle branch block and mild ST depression and biphasic T wave/ inversion in inferolateral leads. Other Data: Other data: Laboratory Tests 09/29/19 09/29/19 09/29/19 05:15 16:50 16:54 ABG pH 7.37 ABG pCO2 43.4 ABG pO2 58.8 L ABG HCO3 25.1 Total Hemoglobin 8.9 L Potassium 5.2 H FiO2 36.0 Calcium Phosphorus Magnesium Ammonia 41 Troponin I 6 Hour Troponin I Hi Sens Del Troponin T Gen 5 n g/L 326 H* Troponin T 120 Min [place] C-React Prot High Sens NT-Pro-B Natriuret Pep 09/29/19 09/30/19 09/30/19 20:15 00:15 04:06 ABG pH ABG pCO2 ABG pO2 ABG HCO3 Total Hemoglobin Potassium FiO2 Calcium 9.4 Phosphorus 2.7 Magnesium 1.6 L Ammonia Troponin I 6 Hour 465.8 H Troponin I Hi Sens Del 139.8 H* Troponin T Gen 5 n g/L Troponin T 120 Min [place] 390.6 H C-React Prot High Sens 12.000 H NT-Pro-B Natriuret Pep 90001 H A&P Assessment and plan (1) Acute respiratory failure with hypoxia: Currently on Lasix 60 mg IV twice a day with spironolactone and metolazone. He is net -300 mL throughout the length of stay. -Currently on BiPAP. -On antibiotic coverage for aspiration. Status: Acute Code(s): J96.01 - Acute respiratory failure with hypoxia (2) Pulmonary edema: On IV lasix 60 BID, spironolactone and metolazone as per Dr. Silva and Dr. Kumar. -Renal function has worsened and creatinine has increased to 2. Status: Acute Qualifiers: Chronicity: acute Qualified Code(s): J81.0 - Acute pulmonary edema Code(s): J81.1 - Chronic pulmonary edema (3) NSTEMI (non-ST elevated myocardial infarction): -Type II non-ST elevation MS in setting of demand ischemia from hypoxic respiratory failure and sepsis. -Continue aspirin and statin. -Normal echocardiogram with preserved left ventricular systolic function and no significant valvular abnormality last month. No significant ischemia on recent stress test. Coronary calcifications noted on CT scan of chest. -May repeat a limited echocardiogram to assess LV function and regional wall motion abnormality. -No indication for coronary angiogram presently. Status: Acute Code(s): I21.4 - Non-ST elevation (NSTEMI) myocardial infarction (4) Acute alteration in mental status: metabolic encepahalopathy Status: Acute Code(s): R41.82 - Altered mental status, unspecified (5) COPD (chronic obstructive pulmonary disease): Status: Acute Qualifiers: COPD type: unspecified COPD Qualified Code(s): J44.9 - Chronic obstructive pulmonary disease, unspecified Code(s): J44.9 - Chronic obstructive pulmonary disease, unspecified (6) Liver cirrhosis: With h/o esophageal and gastric varices and h/o banding. No alcohol use and recent EGD with no active bleeding and no banding warranted. Status: Acute Code(s): K74.60 - Unspecified cirrhosis of liver (7) Diabetes: Status: Acute Code(s): E11.9 - Type 2 diabetes mellitus without complications (8) HTN (hypertension): Status: Acute Code(s): I10 - Essential (primary) hypertension (9) Anemia: Status: Acute Code(s): D64.9 - Anemia, unspecified (10) Pneumonia: Status: Acute Qualifiers: Laterality: right Lung location: lower lobe of lung Pneumonia type: due to unspecified organism Qualified Code(s): J18.9 - Pneumonia, unspecified organism Code(s): J18.9 - Pneumonia, unspecified organism Additional A&P Information Additional A&P Information: Acute kidney injury . Continue to call closely monitor renal function. 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
[2019-09-30] MEDS: metOLazone 5 MG Tablet PO (14:02)
[2019-09-30] MEDS: aspirin 81 mg EC Tablet PO (14:02)
[2019-09-30] MEDS: pantoprazole DR 40 mg Tablet PO (14:02)
[2019-09-30] MEDS: azithromycin 250 mg Tablet 500 MG PO (14:02)
--- NOTE | 2019-09-30 14:12 | PC.NURSE ---
CT CONTRAST PT WOKE UP & DRANK ORAL CONTRAST FOR CT SCAN. DAILY MORNING MEDICATIONS GIVEN, SWALLOWED WITHOUT DIFFICULTY
[2019-09-30] MEDS: propranolol 20 mg Tablet PO (17:51)
[2019-09-30] MEDS: acetaminophen 325 mg Tablet 650 MG PO (17:51)
[2019-09-30] MEDS: spironolactone 25 mg Tablet PO (17:51)
[2019-09-30 17:52] LABS: Glucose Point of Care 158 mg/dL (70-110)
--- NOTE | 2019-09-30 19:06 | PM.PN ---
Subjective Subjective: Interval history: Mr. Brewer was seen multiple times throughout the day today. In the morning, the patient appears to be lethargic however during the course of the day his mental status improved significantly. In the evening time when I evaluated the patient the patient was awake alert and was having dinner. He was also off of the BiPAP with a stable blood pressure and oxygen saturation. The patient had fever overnight. He had a CT scan of his abdomen done with oral contrast which revealed ascending colitis. The patient is also having diarrhea. Medications: Reviewed: Yes Vitals/I&O/Wt Last Vital Signs Temp 101.3 F H 09/30/19 16:00 Pulse 93 09/30/19 18:00 Resp 23 H 09/30/19 18:00 BP 125/69 09/30/19 18:00 Pulse Ox 94 09/30/19 18:00 09/30/19 09/30/19 09/30/19 06:59 14:59 22:59 Intake Total 50 / 810 50 / 50 1080 / 1130 Output Total 1050 / 1050 600 / 600 1800 / 2400 Balance -1000 / -240 -550 / -550 -720 / -1270 Weight last 48 hrs Weight 233 lb Weight 229 lb Weight 229 lb 6.4 oz Physical Exam Narrative: EXAM NARRATIVE: General: Patient is awake alert and oriented, in minimal distress when I saw him in the evening HEENT: Pupil bilateral symmetric Neck: Elevated JVP Respiratory: Auscultation: Bilateral crackles in the posterior bases improved than yesterday, no wheezing or rhonchi Cardiovascular: Regular rate and rhythm, S1-S2 present, no murmur, no right ventricular heave, bilateral peripheral edema better than yesterday Abdomen: Soft, tenderness to deep palpation over the left hypochondriac area, distended from obesity, positive bowel sound Musculoskeletal: No obvious joint deformity Skin: No rash, no evidence of erythema nodosum or multiforme. Neuro: Patient was able to answer questions, follow commands, no gross cranial nerve deficit or motor dysfunction Data Micro: Micro: Microbiology 09/30/19 07:30 MRSA Culture - Fin al Nose 09/30/19 08:40 Blood Culture - Pr eliminary Blood SPE[facility]EN [facility] 09/30/19 08:40 Blood Culture - Pr eliminary Blood SPE[facility]IMEN [facility] 09/29/19 01:05 Gram Stain - Final Sputum - Expector ated Sputum Sputum Culture - P reliminary Other Data: Other data: I have reviewed the abdominal CT with oral contrast. There is evidence of liver cirrhosis. There is no significant ascites. There was inflammation involving the ascending colon. A&P Assessment and plan (1) Acute respiratory failure with hypoxia: Acute hypoxic respiratory failure is better following diuresis overnight. The patient was brought down to ICU because of concerns for hypotension however it appeared that the patient has isolated low blood pressure reading in the right extremity. The patient was diuresed with a loop diuretic, thiazide group of diuretics and potassium sparing diuretic. The patient was able to come off of the BiPAP this evening. Currently he is maintaining saturation well with nasal cannula. We will continue the diuresis. So far today the patient has made about 1800 cc of urine. Status: Acute Code(s): J96.01 - Acute respiratory failure with hypoxia (2) Pulmonary edema: The cause of the patient's acute pulmonary edema would probably be heart failure with preserved ejection fraction. Given the patient's age, diabetes and obesity diastolic dysfunction would not be uncommon in this patient population. The patient had mild elevation of his creatinine. I am concerned whether there is a component of cardiorenal syndrome that was causing worsening kidney function. It will take about 48 hours before we can see the change in creatinine from more intervention. If the patient continues to have worsening creatinine we might have to slow down the diuresis process. Status: Acute Code(s): J81.1 - Chronic pulmonary edema (3) COPD (chronic obstructive pulmonary disease): Patient has diagnosis of COPD. However currently the patient is not having an exacerbation. I have discontinued his inhaler regimen and started him on standing dose of DuoNeb and Pulmicort. Status: Acute Code(s): J44.9 - Chronic obstructive pulmonary disease, unspecified (4) Pneumonia: There is no evidence of MRSA pneumonia. For now the patient is well covered with Zosyn and azithromycin. We had gotten a new set of blood culture for the fever that the patient experienced overnight. Status: Acute Qualifiers: Laterality: right Lung location: lower lobe of lung Pneumonia type: due to unspecified organism Qualified Code(s): J18.9 - Pneumonia, unspecified organism Code(s): J18.9 - Pneumonia, unspecified organism (5) Colitis: There was evidence of a sending colon colitis on the CT scan of the abdomen. There is a concern for C. difficile infection. I am going to start the patient on oral vancomycin until we have the final C. difficile back. 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
[2019-09-30 23:00] LABS: Glucose Point of Care 173 mg/dL (70-110)
[2019-09-30] MEDS: enoxaparin 40 mg/0.4 mL Syringe SUBCUT (23:06)
[2019-09-30] MEDS: insulin glargine 100 units/1 mL 46 UNIT SUBCUT (23:07)
[2019-10-01] VITALS (20 sets, daily range): BP systolic 103–154; BP diastolic 55–99; PULSE 85–99; RESP 16–30; TEMP 36.7–38.2; O2SAT 90–97; BMI 36.1; BMI 35.9
--- NOTE | 2019-10-01 01:45 | PC.RESP ---
placed pt back on rb #[id number]
[2019-10-01] MEDS: ipratropium-albuterol 3 mL Neb INHALATION ×5 (03:52→19:27)
[2019-10-01] MEDS: piperacillin-tazobactam 3.375 GM in sodium chloride 0.9% (plus) 50 ML IV ×3 (04:18→23:33)
[2019-10-01 04:58] LABS: Eosinophils % 1.5 %; Hematocrit 25.8 % (42.0-52.0); Hemoglobin 7.9 g/dL (11.7-16.6); Lymphocytes # 0.5 10^3/uL (0.8-4.8); Mean Corpuscular HGB Conc 30.6 g/dL (30.0-36.0); Mean Corpuscular Hemoglobin 27.1 pg (28.0-34.0); Mean Corpuscular Volume 88.4 fL (80-94); Mean Platelet Volume 10.4 fL (7.4-10.4); Monocytes # 0.5 10^3/uL (0.2-0.9); Nucleated Red Blood Cells % 0 %; Platelet Count 110 10^3/cmm (130-400); Red Blood Count 2.92 10^6/uL (4.1-5.3); Red Cell Distribution Width 15.1 % (12.1-15.1)
[2019-10-01 05:26] LABS: Glucose Point of Care 175 mg/dL (70-110)
--- NOTE | 2019-10-01 05:35 | PC.RESP ---
bipap on standby
[2019-10-01 06:15] LABS: INR 1.25 (0.8-1.2)
[2019-10-01] MEDS: budesonide 0.5 mg/2 mL Neb INHALATION ×2 (07:09→19:27)
[2019-10-01 07:36] LABS: Glucose Point of Care 137 mg/dL (70-110)
[2019-10-01] MEDS: FUROsemide 10 mg/mL SDV 10mL 60 MG IVP (07:45)
[2019-10-01] MEDS: perflutren protein-a microsphr 0.22 mg/mL SDV 3 mL 1 ML IV (08:30)
[2019-10-01 08:42] LABS: Alanine Aminotransferase 28 U/L (0-41); Albumin Level 3.7 g/dL (3.5-5.2); Alkaline Phosphatase 85 IU/L (40-130); Anion Gap 16.7 (5-19); Aspartate Amino Transferase 68 U/L (0-40); Blood Urea Nitrogen 51 mg/dL (8-23); Carbon Dioxide 28 mmol/L (22-29); Chloride 94 mmol/L (98-107); Globulin 3.6 g/dL (1.3-4.6); Glucose 141 mg/dL (74-106); Magnesium 2.2 mg/dL (1.7-2.3); NT Pro B Type Natriuretic Pept 12964 pg/mL (0-450); Phosphorus 4.4 mg/dL (2.5-4.5); Potassium 3.7 mmol/L (3.5-5.1); Sodium 135 mmol/L (136-145); Total Bilirubin 0.5 mg/dL (0.15-1.2); Total Protein 7.3 g/dL (6.6-8.7)
[2019-10-01] MEDS: azithromycin 250 mg Tablet 500 MG PO (09:09)
[2019-10-01] MEDS: pantoprazole DR 40 mg Tablet PO (09:09)
[2019-10-01] MEDS: aspirin 81 mg EC Tablet PO (09:10)
[2019-10-01] MEDS: metOLazone 5 MG Tablet PO (09:10)
[2019-10-01] MEDS: propranolol 20 mg Tablet PO ×2 (09:10→17:53)
[2019-10-01] MEDS: spironolactone 25 mg Tablet PO (09:11)
--- NOTE | 2019-10-01 10:51 | PC.SOCIAL ---
IMM Page 2 of IMM explained to and signed by patient's spouse at bedside. Initialed, dated, and timed and placed in chart. Copy provided to patient's spouse.
--- NOTE | 2019-10-01 11:06 | XR_ITS ---
WS: [id number] Portable AP upright chest, 10/01/2019 Clinical Data: pulmonary edema Comparison: Portable chest, 09/30/2019 Findings: The heart remains enlarged The pulmonary vascularity is increased. No pneumonia or pneumot horax is seen. No nodules, masses or effusions are seen. The aortic arch and descending aorta are tor tuous. Monitor leads are on the chest wall. There is deformity of the lateral aspect of the right cla vicle from an old injury. XR/XR chest 1V portable [id number] Impression: No change in cardiomegaly and pulmonary vascular congestion.
[2019-10-01 11:28] LABS: Glucose Point of Care 230 mg/dL (70-110)
--- NOTE | 2019-10-01 11:35 | P.PN_ITS ---
Subjective Subjective: Interval history: Patient's mental status has improved. He had good urine outout in last 24 hr. No events on telemetry and denies any CP presently. Medications: Reviewed: Yes Vitals/I&O/Wt Last Vital Signs Temp 100.7 F H 10/01/19 10:00 Pulse 89 10/01/19 10:00 Resp 26 H 10/01/19 10:00 BP 118/72 10/01/19 10:00 Pulse Ox 91 10/01/19 08:00 09/30/19 10/01/19 10/01/19 22:59 06:59 14:59 Intake Total 1130 / 1180 410 / 1590 290 / 290 Output Total 1800 / 2400 2000 / 4400 Balance -670 / -1220 -1590 / -2810 290 / 290 Weight last 48 hrs Weight 216 lb Weight 217 lb 1.6 oz Weight 233 lb Physical Exam Narrative: EXAM NARRATIVE: GENERAL: Obese man lying in bed drowsy at the time of evaluation HEENT: Pupils equal round reactive to light. + pallor, no icterus. NECK: + JVD CARDIOVASCULAR SYSTEM: S1-S2 regular. No murmur rubs or gallops. RESPIRATORY SYSTEM: Chest clear to auscultation anteriorly with posterior mid- basal crackles. No use of accessory muscles. EXTREMITIES: No cyanosis or clubbing. trace-1+ edema. 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 -Currently off BiPaP. Used it overnight. -On antibiotic coverage for aspiration. Status: Acute Code(s): J96.01 - Acute respiratory failure with hypoxia (2) Pulmonary edema: On IV diuretic spironolactone and metolazone as per Dr. Silva and Dr. Kumar. -Renal function has been stable at 2. -Continue current medications. Status: Acute Code(s): J81.1 - Chronic pulmonary edema (3) NSTEMI (non-ST elevated myocardial infarction): Likely type II non-ST elevation AL in setting of demand ischemia from hypoxic respiratory failure. -Continue aspirin and statin. Asymptomatic presently. -Normal echocardiogram with preserved left ventricular systolic function and no significant valvular abnormality last month. -Repeat limited echocardiogram to assess LV function and regional wall motion abnormality is pending. -No indication for coronary angiogram presently. May consider at a later date. Status: Acute Code(s): I21.4 - Non-ST elevation (NSTEMI) myocardial infarction (4) Acute alteration in mental status: resolved Status: Acute Code(s): R41.82 - Altered mental status, unspecified (5) COPD (chronic obstructive pulmonary disease): Status: Acute Code(s): J44.9 - Chronic obstructive pulmonary disease, unspecified (6) Liver cirrhosis: Status: Acute Code(s): K74.60 - Unspecified cirrhosis of liver (7) Diabetes: Status: Acute Code(s): E11.9 - Type 2 diabetes mellitus without complications (8) HTN (hypertension): fairly controlled. continue meds. Status: Acute Code(s): I10 - Essential (primary) hypertension (9) Anemia: Status: Acute Code(s): D64.9 - Anemia, unspecified (10) Colitis: C. Diff negative. Status: Acute Code(s): K52.9 - Noninfective gastroenteritis and colitis, unspecified Additional A&P Information Additional A&P Information: Acute kidney injury * Continue to call closely monitor renal function. Attestations Medical Necessity Statement*: As per primary team. 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
--- NOTE | 2019-10-01 13:13 | P.PN_ITS ---
Subjective Subjective: Interval history: The patient is more alert today. His breathing is improved and he is now off the BiPAP. The patient is having less diarrhea at this time. The patient's abdominal pain is also improving. Medications: Reviewed: Yes Vitals/I&O/Wt Last Vital Signs Temp 100.7 F H 10/01/19 10:00 Pulse 97 10/01/19 12:40 Resp 18 10/01/19 12:40 BP 154/73 10/01/19 11:45 Pulse Ox 95 10/01/19 12:40 09/30/19 10/01/19 10/01/19 22:59 06:59 14:59 Intake Total 1130 / 1180 410 / 1590 530 / 530 Output Total 1800 / 2400 2000 / 4400 Balance -670 / -1220 -1590 / -2810 530 / 530 Weight last 48 hrs Weight 97.976 kg Weight 98.475 kg Weight 105.687 kg Physical Exam Narrative: EXAM NARRATIVE: Constitutional: The patient is awake and alert with mild confusion. Mouth: Edentulous without lesions noted. Heart: Regular rate and rhythm without significant murmur noted. Distant heart sounds. Lungs: Occasional bilateral wheezes present. Bilateral crackles and rhonchi present. Crackles especially present at the dependent areas. Abdomen: Distended, nontender. Hepatosplenomegaly noted. No rebound tenderness. Extremities: +1 pitting edema in the bilateral lower extremities. Data Micro: Micro: Microbiology 09/29/19 01:05 Gram Stain - Final Sputum - Expector ated Sputum Sputum Culture - F inal 09/30/19 08:40 Blood Culture - Pr eliminary Blood NEGATIVE TO TATO E 09/30/19 08:40 Blood Culture - Pr eliminary Blood NEGATIVE TO TATO E 09/30/19 14:15 C.difficile Toxin B Gene (PCR) - Fin al Stool 09/30/19 07:30 MRSA Culture - Fin al Nose A&P Additional A&P Information Additional A&P Information: 1. Pneumonia: The patient likely has some level of aspiration pneumonia as he has had difficulty with swallowing for some time. He does have a history of aspiration of food products. Continue with IV antibiotics of Zosyn and azithromycin. 2. COPD (chronic obstructive pulmonary disease): Patient has some wheezing, however it is not significant at this time. Continue with respiratory therapy and add steroids if not improving. 3. Anemia: Hemoglobin has decreased to 7.9. This is likely dilutional, but if continuing to decrease, he may need a blood transfusion. We will have to watch for fluid overload if transfusion needed. 4. Diabetes: Insulin sliding scale and Levemir. 5. HTN (hypertension): Stable for now 6. Fluid overload: Continue with IV Lasix and BiPAP as needed. His renal output is improved and he had a 1.7 L deficit. We will continue to follow. 7. Altered mental status -this had improved with the above treatments. 8. Elevated troponin the patient has elevated troponin likely secondary to his underlying infection. -Dr. Gordon has been consulted and it is felt that this is secondary to infection at this time. No interventions to be done currently. Limited echocardiogram has been done. Results pending. 9. Diarrhea with ascending colitis -the patient's abdominal pain has improved. The patient's C. difficile was negative. Oral vancomycin was stopped. Continue to follow clinically. 10. Liver cirrhosis - The majority of his fluid overload is likely secondary to this. 11. Prophylaxis -currently the patient is on Lovenox, however we will need to watch for bleeding signs. Attestations Medical Necessity Statement*: The patient continues need inpatient care for treatment of the above issues. He is starting to become more stable and may be able to be moved out of the ICU later this afternoon or tomorrow depending on his course. 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
--- NOTE | 2019-10-01 15:48 | PC.CHAP ---
Pastoral Care Encounter/Spiritual Assessment Type of Contact [] Declined home and family living professor visit [] Patient/Family/Request visit [] Outpatient visit [] Follow-up visit [] Physician referral [] Code/Alert [] Routine visit [] Staff referral [] Actively dying [x] Patient sleeping [] Family support [] [] Out of room [] Palliative care [] [] Receiving care in room [] Pre-surgical visit [] Trauma [] Long length of stay [x] ICU visit [] Other: Relational/Emotional Strength [] Patient feels connected with others/family/visitors/staff [] Distress [] Loneliness/isolation [] Abandonment Spirituality of Patient [] Person of Mayra [] Attends Amish of their Mayra [] Believes in Prayer [] Reads Bible or Sikhism materials [] There are Spiritual issues to be addressed Alteration Inspector Interventions [] Prayer [] Active listening [] Non-anxious presence [] Spiritual/emotional support [] Crisis/trauma care [] Spiritual counseling [] Bereavement support [] Provided bereavement packet [] Provided Bible/devotional materials [] Provided toy/stuffed animal, coloring book to patient or family member [] Completed spiritual assessment [] Provided Communion [] Anointing/[place] [] Salvation [] Other: Impact on Illness or Injury [] Angry [] Fearful [] Anxious [] Often cries [] Exhaustion [] Unable to work [] Unable to attend sikh [] Unable to walk/stand [] Unable to read [] Unable to drive [] Unable to eat/drink [] Unable to sleep [] Unable to be with family [] Other: Summary Time spent with patient xpatient was sleeping, will revisit. 3 min.
--- NOTE | 2019-10-01 15:49 | PC.CHAP ---
Pastoral Care Encounter/Spiritual Assessment Type of Contact [] Declined haulage engine operator visit [] Patient/Family/Request visit [] Outpatient visit [] Follow-up visit [] Physician referral [] Code/Alert [] Routine visit [] Staff referral [] Actively dying [x] Patient sleeping [] Family support [] [] Out of room [] Palliative care [] [] Receiving care in room [] Pre-surgical visit [] Trauma [] Long length of stay [x] ICU visit [] Other: Relational/Emotional Strength [] Patient feels connected with others/family/visitors/staff [] Distress [] Loneliness/isolation [] Abandonment Spirituality of Patient [] Person of Mayra [] Attends Church of their Mayra [] Believes in Prayer [] Reads Bible or Scientology materials [] There are Spiritual issues to be addressed Yard Cleaner Interventions [] Prayer [] Active listening [] Non-anxious presence [] Spiritual/emotional support [] Crisis/trauma care [] Spiritual counseling [] Bereavement support [] Provided bereavement packet [] Provided Bible/devotional materials [] Provided toy/stuffed animal, coloring book to patient or family member [] Completed spiritual assessment [] Provided Communion [] Anointing/[place] [] Salvation [] Other: Impact on Illness or Injury [] Angry [] Fearful [] Anxious [] Often cries [] Exhaustion [] Unable to work [] Unable to attend sabianist [] Unable to walk/stand [] Unable to read [] Unable to drive [] Unable to eat/drink [] Unable to sleep [] Unable to be with family [] Other: Summary Time spent with patient julissa is on a vent and sleeping, so the Yard Cleaner prayed outside of room. 7 min.
--- NOTE | 2019-10-01 15:54 | PC.CHAP ---
Pastoral Care Encounter/Spiritual Assessment Type of Contact [] Declined heel gouger visit [] Patient/Family/Request visit [] Outpatient visit [] Follow-up visit [] Physician referral [] Code/Alert [] Routine visit [] Staff referral [] Actively dying [x] Patient sleeping [] Family support [] [] Out of room [] Palliative care [] [] Receiving care in room [] Pre-surgical visit [] Trauma [] Long length of stay [x] ICU visit [] Other: Relational/Emotional Strength [] Patient feels connected with others/family/visitors/staff [] Distress [] Loneliness/isolation [] Abandonment Spirituality of Patient [] Person of Mayra [] Attends Gnosticism of their Mayra [] Believes in Prayer [] Reads Bible or Adventism materials [] There are Spiritual issues to be addressed Supervisor Liquefaction Interventions [] Prayer [] Active listening [] Non-anxious presence [] Spiritual/emotional support [] Crisis/trauma care [] Spiritual counseling [] Bereavement support [] Provided bereavement packet [] Provided Bible/devotional materials [] Provided toy/stuffed animal, coloring book to patient or family member [] Completed spiritual assessment [] Provided Communion [] Anointing/[place] [] Salvation [] Other: Impact on Illness or Injury [] Angry [] Fearful [] Anxious [] Often cries [] Exhaustion [] Unable to work [] Unable to attend lutheran [] Unable to walk/stand [] Unable to read [] Unable to drive [] Unable to eat/drink [] Unable to sleep [] Unable to be with family [] Other: Summary Time spent with patient patient is sleeping but Supervisor Liquefaction prpayed with . 10 min.
--- NOTE | 2019-10-01 16:42 | USCV_ITS ---
Parish Brewer Age: 78 Gender: M : 1940 Exam Date: 10/01/2019 08:24 Ordering Phys: Chani Gordon MD ([email or web address]) Technologist: Raheel Johnson Exam Location: [facility] [place] Indication: LV FUNCTION BP: 136 / 79 HR: 94 Rhythm: Sinus Technical Quality: Fair MEASUREMENTS (Male / Female) Normal Values 2D ECHO LV Ejection Fraction MOD 2C 65.7 % LV Ejection Fraction 2C AL 66.5 % M-MODE LV Diastolic Diameter MM 5.8 cm 4.2 - 5.9 / 3.9 - 5.3 cm LV Systolic Diameter MM 4.3 cm LV Ejection Fraction MM Teich 49.4 % IVS Diastolic Thickness MM 1.0 cm 0.6 - 1.0 / 0.6 - 0.9 cm IVS Systolic Thickness MM 1.3 cm LVPW Diastolic Thickness MM 0.9 cm 0.6 - 1.0 / 0.6 - 0.9 cm LVPW Systolic Thickness MM 1.3 cm RV Diastolic Diameter MM 1.5 cm DOPPLER AV Peak Velocity 155.0 cm/s LVOT Peak Velocity 93.0 cm/s MV Area PHT 5.0 cm squared Mitral E to A Ratio 0.9 MV E' Velocity 124.0 cm/s FINDINGS Left Ventricle Normal left ventricular cavity size. Normal left ventricular systolic function. Left ventricular ejection fraction is estimated at 60 %. No diagnostic regional wall motion abnormality. Normal diastolic filling pattern. Right Ventricle Normal right ventricular size and systolic function. Right Atrium Right atrium not well visualized. Left Atrium Left atrium not well visualized. Mitral Valve Mitral valve not well visualized. Moderate mitral annular calcification. Aortic Valve Aortic valve not well visualized.No aortic valve stenosis. Tricuspid Valve Tricuspid valve not well visualized. Pulmonic Valve Pulmonic valve not assessed. Pericardium No pericardial effusion. Aorta Aorta not well visualized. CONCLUSIONS 1. This is a limited echo with ultrasound enhancing agent. 2. Normal left ventricular cavity size and systolic function. Left ventricular ejection fraction is estimated at 60 %. No diagnostic regional wall motion abnormality. 3. Normal right ventricular size and systolic function. 4. When compared to previous echocardiogram dated 08/27/2019, there may not have been any significant change. Chani Gordon MD (Electronically Signed) Final Date: 04 October 2019 13:30 S
[2019-10-01 17:28] LABS: Glucose Point of Care 190 mg/dL (70-110)
--- NOTE | 2019-10-01 17:42 | P.PN_ITS ---
Subjective Subjective: Interval history: Mr. Brewer was seen and examined this evening. He is doing much better than yesterday. He is currently on 5 L of oxygen via nasal cannula and uses about 3 to 4 L of oxygen at home. The patient looks comfortable and without any significant shortness of breath. His mental status has also improved significantly. The patient is awake alert and able to carry a conversation, feed himself. His is present at bedside and states that he is doing much better. He did not have any significant fever overnight. I had performed a bedside ultrasound. There was no B-lines on lung ultrasound, there is no more pleural effusion. His peripheral edema has also resolved completely. Vitals/I&O/Wt Last Vital Signs Temp 99.5 F 10/01/19 14:00 Pulse 94 10/01/19 16:38 Resp 18 10/01/19 16:38 BP 144/99 10/01/19 14:00 Pulse Ox 95 10/01/19 16:38 10/01/19 10/01/19 10/01/19 06:59 14:59 22:59 Intake Total 410 / 1590 530 / 530 360 / 890 Output Total 2000 / 4400 1900 / 1900 Balance -1590 / -2810 530 / 530 -1540 / -1010 Weight last 48 hrs Weight 216 lb Weight 217 lb 1.6 oz Weight 233 lb Physical Exam Narrative: EXAM NARRATIVE: General: Patient is awake alert and oriented, in no distress HEENT: Pupil bilateral symmetric Neck: No JVP elevation Respiratory: Auscultation: Minimal crackles at the lung bases, no wheezing or rhonchi Cardiovascular: Regular rate and rhythm, S1-S2 present, no murmur, no right ventricular heave, no peripheral edema Abdomen: Soft, nontender, distended from obesity, positive bowel sound Musculoskeletal: No obvious joint deformity Skin: No rash, no evidence of erythema nodosum or multiforme. Neuro: Patient is awake alert and oriented, no focal neurologic deficit Data Micro: Micro: Microbiology 09/29/19 01:05 Gram Stain - Final Sputum - Expector ated Sputum Sputum Culture - F inal 09/30/19 08:40 Blood Culture - Pr eliminary Blood NEGATIVE TO TATO E 09/30/19 08:40 Blood Culture - Pr eliminary Blood NEGATIVE TO TATO E 09/30/19 14:15 C.difficile Toxin B Gene (PCR) - Rohit sapp Stool 09/30/19 07:30 MRSA Culture - Rohit sapp Nose Other Data: Other data: I have reviewed the patient's laboratory data and the chest x-ray that was performed today. To me the pulmonary vascular congestion is significantly better. A&P Assessment and plan (1) Acute respiratory failure with hypoxia: The patient is doing fairly well regarding his respiratory status. His pulmonary edema has resolved. Currently he is requiring 5 L of oxygen. He uses 3 to 4 L of oxygen at home. His saturation is in the mid 90s. I believe his respiratory status is back to baseline at this point. I believe, the patient had alteration of his mental status at home prior to the hospital admission this time. The patient used to be on multiple medication that are known to affect the brain function including opioids, muscle relaxants and antidepressants. With altered mental status the patient possibly suffered from aspiration pneumonia. On top of that, the patient had pulmonary edema in the setting of diastolic heart failure. Status: Acute Code(s): J96.01 - Acute respiratory failure with hypoxia (2) Pulmonary edema: The patient had been diuresed very well. I am going to cut down his Lasix to 40 mg IV twice daily at this point. We will discontinue the metolazone. And increase the spironolactone to 50 twice a day. Tomorrow the patient will receive oral Lasix 40 mg in addition to the spironolactone. Status: Acute Qualifiers: Chronicity: acute Qualified Code(s): J81.0 - Acute pulmonary edema Code(s): J81.1 - Chronic pulmonary edema (3) COPD (chronic obstructive pulmonary disease): The patient is on DuoNeb and Pulmicort nebs. There is no evidence of COPD exacerbation. Status: Acute Qualifiers: COPD type: unspecified COPD Qualified Code(s): J44.9 - Chronic obstructive pulmonary disease, unspecified Code(s): J44.9 - Chronic obstructive pulmonary disease, unspecified (4) Pneumonia: The patient is on Zosyn and azithromycin. I will discontinue the azithromycin after 5 days. I will continue a total of 7-day therapy. The patient can be switched to Augmentin tomorrow and Zosyn can be discontinued. Status: Acute Qualifiers: Laterality: right Lung location: lower lobe of lung Pneumonia type: due to unspecified organism Qualified Code(s): J18.9 - Pneumonia, unspecified organism Code(s): J18.9 - Pneumonia, unspecified organism (5) Colitis: The patient was empirically treated with oral vancomycin for suspected C. difficile. However the C. difficile assay came back negative and the oral vancomycin was discontinued. Overall the patient has made significant progress in the past 2 days. Status: Acute Code(s): K52.9 - Noninfective gastroenteritis and colitis, unspecified Attestations Medical Necessity Statement*: Will defer to the primary team Critical Care Time: Critical care time: 30 - 74 mins Coding Level of Care Code Acute [facility] Educator [facility] Diagnoses Acute respiratory failure with hypoxia J96.01 Pulmonary edema J81.0 Chronicity: acute COPD (chronic obstructive pulmonary disease) J44.9 COPD type: unspecified COPD Pneumonia J18.9 Laterality: right Lung location: lower lobe of lung Pneumonia type: due to unspecified organism Colitis K52.9
[2019-10-01] MEDS: FUROsemide 10 mg/mL SDV 4mL 40 MG IVP (17:53)
[2019-10-01] MEDS: spironolactone 25 mg Tablet 50 MG PO (17:53)
--- NOTE | 2019-10-01 19:31 | PC.RESP ---
pt refused bipap at this time, 0 resp distress noted at this time
[2019-10-01 21:56] LABS: Glucose Point of Care 232 mg/dL (70-110)
[2019-10-01] MEDS: enoxaparin 40 mg/0.4 mL Syringe SUBCUT (23:33)
[2019-10-01] MEDS: allopurinol 300 mg Tablet PO (23:34)
[2019-10-01] MEDS: PARoxetine 20 mg Tablet 40 MG PO (23:34)
[2019-10-01] MEDS: lidocaine 5% Patch 1 PATCH TOPICAL (23:35)
[2019-10-01] MEDS: insulin glargine 100 units/1 mL 46 UNIT SUBCUT (23:37)
[2019-10-01] MEDS: amlodipine 10 mg Tablet PO (23:51)
[2019-10-02] VITALS (23 sets, daily range): BP systolic 101–160; BP diastolic 60–78; PULSE 77–97; RESP 16–24; TEMP 36.3–37.4; O2SAT 82–97
[2019-10-02] MEDS: ipratropium-albuterol 3 mL Neb INHALATION ×6 (00:43→23:24)
[2019-10-02] MEDS: FUROsemide 10 mg/mL SDV 4mL 40 MG IVP (05:00)
[2019-10-02] MEDS: piperacillin-tazobactam 3.375 GM in sodium chloride 0.9% (plus) 50 ML IV (05:00)
[2019-10-02 07:29] LABS: Glucose Point of Care 160 mg/dL (70-110)
[2019-10-02] MEDS: azithromycin 250 mg Tablet 500 MG PO (08:45)
[2019-10-02] MEDS: spironolactone 25 mg Tablet 50 MG PO ×2 (08:46→19:06)
[2019-10-02] MEDS: propranolol 20 mg Tablet PO ×2 (08:46→19:06)
[2019-10-02] MEDS: aspirin 81 mg EC Tablet PO (08:46)
[2019-10-02] MEDS: pantoprazole DR 40 mg Tablet PO (08:46)
[2019-10-02] MEDS: budesonide 0.5 mg/2 mL Neb INHALATION ×2 (08:47→20:10)
--- NOTE | 2019-10-02 10:36 | PM.PN ---
Subjective Subjective: Interval history: Chart reviewed, patient known to me from previous admission in August 2019. Labs noted including hemoglobin. Had 1800 mL urine output overnight. Is not quite at his baseline oxygen requirement (2-4 L) though his breathing is improving. Conferred with Dr. Jonathan marti this AM, will continue ASA for now and hold off on adding Plavix due to high bleeding risk secondary to anemia. Medications: Reviewed: Yes Medication Review Details: Active Medications Generic Name Dose Route Start Last Admin Trade Name Freq PRN Reason Stop Dose Admin Acetaminophen 650 mg 09/28/19 10:46 09/30/19 17:51 Tylenol PO 650 mg Q6H PRN Administration Mild/Mod Pain Or Temp >/= 101 Albuterol Sulfate 2.5 mg 09/28/19 20:30 09/29/19 16:23 Albuterol INHALATION 2.5 mg Q4H.RESPIRATORY P RN Administration Shortness Of Stefani th Albuterol/Ipratrop ium 3 ml 09/29/19 20:00 10/02/19 08:48 Duoneb INHALATION 3 ml Q4H.RESPIRATORY S CH Administration Allopurinol 300 mg 09/28/19 21:00 10/01/19 23:34 Zyloprim PO 300 mg BEDTIME [place] Administration Amlodipine Besylat e 10 mg 09/28/19 21:00 10/01/19 23:51 Norvasc PO 10 mg BEDTIME [place] Administration Aspirin 81 mg 09/29/19 09:00 10/02/19 08:46 Aspirin Ec PO 81 mg DAILY [place] Administration Azithromycin 500 mg 09/30/19 09:45 10/02/19 08:45 Zithromax PO 500 mg DAILY [place] Administration Protocol Budesonide 0.5 mg 09/29/19 20:00 10/02/19 08:47 Pulmicort INHALATION 0.5 mg BID.RESPIRATORY S CH Administration Dextrose 25 ml 09/28/19 19:52 D50w IVP ONCE PRN hypoglycemia prot ocol Protocol Dextrose 50 ml 09/28/19 19:52 D50w IVP PRN PRN hypoglycemia prot ocol Protocol Enoxaparin Sodium 40 mg 09/28/19 20:30 10/01/19 23:33 Lovenox SUBCUT 40 mg Q24H [place] Administration Fluticasone Propio theodora 1 spray 09/28/19 19:49 Flonase INTRANASAL DAILY PRN unknown Furosemide 40 mg 10/03/19 08:00 Lasix PO DAILY@0800 [place] Gabapentin 100 mg 09/29/19 06:00 09/30/19 06:43 Neurontin PO 100 mg QAM [place] Administration Gabapentin 300 mg 09/28/19 21:00 09/29/19 22:29 Neurontin PO 300 mg BEDTIME [place] Administration Glucagon 1 mg 09/28/19 19:52 Glucagen IM ONCE PRN Adult Acute Hypog lycemia Prot. Protocol Dextrose 500 mls @ 100 mls /hr 09/28/19 19:52 D5w IV ONCE PRN Adult Acute Hypog lycemia Prot Protocol Insulin Aspart 0 unit 09/30/19 21:00 10/01/19 23:37 Novolog SUBCUT 1 unit BEDTIME [place] Administration Protocol Insulin Aspart 0 unit 09/30/19 12:00 10/02/19 08:50 Novolog SUBCUT 2 unit TIDWM [place] Administration Protocol Insulin Glargine 46 unit 09/28/19 21:00 10/01/19 23:37 Lantus SUBCUT 46 unit BEDTIME [place] Administration Lidocaine 1 patch 10/01/19 21:00 10/02/19 08:56 Lidoderm 5% Patc h TOPICAL Not Given [id number] [facility] Nitroglycerin 0.4 mg 09/29/19 16:21 09/29/19 16:41 Nitrostat SUBLINGUAL 1 tab Q5M PRN Administration CHEST PAIN Non-Formulary 1 each 10/02/19 21:00 Medication- PO Pravastatin 10mg BEDTIME [place] Ondansetron HCl 4 mg 09/28/19 10:46 Zofran IVP Q6H PRN NAUSEA AND VOMITI NG Pantoprazole Sodiu m 40 mg 09/29/19 09:00 10/02/19 08:46 Protonix PO 40 mg DAILY [place] Administration Paroxetine HCl 40 mg 09/28/19 21:00 10/01/19 23:34 Paxil PO 40 mg BEDTIME [place] Administration Propranolol HCl 20 mg 09/29/19 09:00 10/02/19 08:46 Inderal PO 20 mg BID [place] Administration Fluticasone/Salmet tiffany 1 puff 09/29/19 10:35 09/29/19 20:20 Advair Diskus 50 0-50 INHALATION 1 puff BID.RESPIRATORY S CH Administration Spironolactone 50 mg 10/01/19 18:00 10/02/19 08:46 Aldactone PO 50 mg BID [place] Administration Trazodone HCl 50 mg 09/28/19 21:00 09/29/19 22:32 Desyrel PO 50 mg BEDTIME [place] Administration lisinopril Allergy (Verified 09/28/19 10:46) ALGY-Rash tizanidine Allergy (Verified 09/28/19 10:46) Unknown Vitals/I&O/Wt Last Vital Signs Temp 97.8 F 10/02/19 08:00 Pulse 87 10/02/19 08:54 Resp 20 H 10/02/19 08:49 BP 160/78 10/02/19 08:00 Pulse Ox 97 10/02/19 08:49 10/01/19 10/02/19 10/02/19 22:59 06:59 14:59 Intake Total 510 / 1040 150 / 1190 240 / 240 Output Total 1900 / 1900 1800 / 3700 Balance -1390 / -860 -1650 / -2510 240 / 240 Weight last 48 hrs Weight 95.844 kg Weight 97.976 kg Weight 98.475 kg Physical Exam Const: COMMON NORMALS: no apparent distress and oriented x3 GENERAL APPEARANCE: cooperative and comfortable NUTRITIONAL APPEARANCE: obese centrally obese ORIENTATION/CONSCIOUSNESS: Yes awake HENMT: COMMON NORMALS: normocephalic, head/scalp atraumatic, hearing grossly normal bilaterally and moist oral mucous membranes HEAD & SCALP: normocephalic and atraumatic GENERAL EAR: hearing grossly impaired Laterality: bilateral TEETH & GINGIVA: Yes edentulous Eye: COMMON NORMALS: PERRL, EOMs intact bilaterally and conjunctivae normal CONJUNCTIVA: Yes conjunctivae normal PUPIL: Yes PERRL Neck/C-Spine: COMMON NORMALS: full ROM GENERAL: Yes normal visual inspection and Yes trachea midline Resp: COMMON NORMALS: normal respiratory effort, no retractions and no use of accessory muscles EFFORT & INSPECTION: Yes able to speak in complete sentences, Yes symmetric chest movement and No tachypneic AUSCULTATION: no rales, no rhonchi and diminished lung sounds bilateral Cardio: COMMON NORMALS: regular rate, regular rhythm, S1 normal heart sound, S2 normal heart sound and no murmurs RATE: regular rate RHYTHM: regular rhythm HEART SOUNDS: S1 normal and S2 normal GI: COMMON NORMALS: normal to inspection, nondistended, normoactive bowel sounds, soft to palpation and non-tender PALPATION: Yes soft : BLADDER/KIDNEY EXAM: Yes catheter in place Catheter type (Male): urethral Extremity: COMMON NORMALS: normal to inspection, full ROM and no clubbing, cyanosis or edema; negative for no pedal edema RIGHT LOWER EXTREMITY: Yes knee joint (noted bruising around knee joint, tenderness to palpation, decreased ROM) Neuro: COMMON NORMALS: oriented x3, moves all extremities, no focal motor deficits and no sensory deficits noted Psych: COMMON NORMALS: mental status grossly normal, thought process normal, cooperative, affect normal and speech normal SPEECH: Yes normal speech THOUGHT PROCESS: normal thought process Skin: COMMON NORMALS: no jaundice, no petechiae and no mottling GENERAL SKIN EXAM: ecchymosis (around R knee joint) Urinary Catheter Management^: Pablo: Cath Placed During This Visit: no Data Micro: Micro: Microbiology 09/29/19 01:05 Gram Stain - Final Sputum - Expector ated Sputum Sputum Culture - F inal 09/30/19 08:40 Blood Culture - Pr eliminary Blood NEGATIVE TO TATO E 09/30/19 08:40 Blood Culture - Pr eliminary Blood NEGATIVE TO TATO E A&P Assessment and plan (1) Pneumonia: -Has noted prior history of aspiration pneumonia which cannot be excluded during this admission as well -Repeat imaging noted and unchanged -Noted to have low-grade temp of 100 point 7F overnight, currently afebrile. Slightly leukopenic. -Zosyn discontinued. Continue oral azithromycin and Augmentin per Dr. Kumar's recommendations -Appreciate pulmonology consult by Dr. Kumar -Aspiration precautions, supplemental oxygen, BiPAP as needed Status: Acute Qualifiers: Laterality: right Lung location: lower lobe of lung Pneumonia type: due to unspecified organism Qualified Code(s): J18.9 - Pneumonia, unspecified organism Code(s): J18.9 - Pneumonia, unspecified organism (2) Colitis: -Noted evidence of ascending colitis on imaging -Continue antibiotics -Has had several bowel movements during this admission Status: Acute Code(s): K52.9 - Noninfective gastroenteritis and colitis, unspecified (3) NSTEMI (non-ST elevated myocardial infarction): -Noted elevated troponins, likely type II NSTEMI secondary to acute fluid overload and acute infection -Appreciate cardiology consult -Limited echo done, report pending -had dobutamine stress test done in 06/2019 showing myocardial scarring in RCA distribution with very small areas of stephan-infarction ischemia, no wall motion abnormalities noted -Continue to monitor vital signs -Telemetry monitoring -Dr. Castillo discussed possibility of further workup with the patient including angiogram. not present during discussion, will f/u Status: Acute Code(s): I21.4 - Non-ST elevation (NSTEMI) myocardial infarction (4) Fluid overload: -Fluid overload secondary to acute exacerbation of chronic diastolic CHF; BNP greater than 12,000; as well as liver cirrhosis -Seems clinically compensated -Discontinue IV diuresis, transition to oral Lasix, continue Aldactone. Metolazone was discontinued yesterday -Continue to monitor urine output, fluid balance is currently -4.3 L -Supplemental oxygen as needed, continue to monitor respiratory status -Continue to monitor vital signs -By bedside ultrasound done by Dr. Kumar yesterday pleural effusion resolved -Patient is oxygen dependent at baseline with a 3 to 4 L requirement -Limited echo done, report pending; previous echo done in August showed an ejection fraction of 65% with grade 1 diastolic dysfunction Status: Acute Qualifiers: Hypervolemia type: unspecified Qualified Code(s): E87.70 - Fluid overload, unspecified Code(s): E87.70 - Fluid overload, unspecified Additional A&P Information Additional A&P Information: -Oxygen dependent COPD (3-4 L at baseline), exacerbation now resolved -Morbid obesity: BMI-35 kg/m2 -HTN -Chronic diastolic CHF -Hyperlipidemia -IDDM type II; A1c-7.4 (2016) -Cryptogenic liver cirrhosis with esophageal varices; associated coagulopathy and thrombocytopenia -CKD stage 2; baseline Cr wnl -Depression, insomnia -Bilateral carotid artery stenosis s/p L CEA with patch angioplasty (04/2019); Follows up with vascular surgery in [place]. -Chronic normocytic anemia; likely multifactorial given underlying chronic kidney disease, liver cirrhosis and iron deficiency. Has had bleeding varices in the past and had banding done. Protein electrophoresis showed polyclonal gammopathy. Baseline hemoglobin appears to be 10-11. Current hemoglobin is below his baseline, will need to continue to trend this closely. -Chronic back pain, DJD -GI ppx with PPI -DVT ppx with lovenox -Dispo: home -Code status: FULL code -transfer to floor once bed available. Attestations Medical Necessity Statement*: Patient requires hospitalization for continued management of pneumonia, fluid overload, switched to oral antibiotics and oral diuretics, needs continued monitoring of hemoglobin, hemodynamic and respiratory status. Time Spent in Patient Care: Greater than 35 minutes (>than 50% of time spent in counselling and/or direct pt care on unit). 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
[2019-10-02 11:34] LABS: Glucose Point of Care 256 mg/dL (70-110)
--- NOTE | 2019-10-02 12:48 | P.PN_ITS ---
Subjective Subjective: Interval history: Cardiology coverage Patient admitted to hospital with shortness of breath, altered mental status. He had features of COPD exacerbation, possible acute heart failure and pneumonia. His overall status is improving. He had elevated troponin T. He also was found to be anemic and abnormal kidney function. He has a history of cirrhosis of the liver. He is a very poor historian. He had a recent fall, sustaining contusion of the lower extremities. He has no document history for coronary artery disease . Currently he denies any chest pain or palpitation. Medications: Reviewed: Yes Medication Review Details: Patient is not on baby aspirin. Not on any Plavix Vitals/I&O/Wt Last Vital Signs Temp 97.8 F 10/02/19 08:00 Pulse 87 10/02/19 08:54 Resp 20 H 10/02/19 08:49 BP 160/78 10/02/19 08:00 Pulse Ox 97 10/02/19 08:49 the blood pressure has been fluctuating. Mostly it is in the normal range. 10/01/19 10/02/19 10/02/19 22:59 06:59 14:59 Intake Total 510 / 1040 150 / 1190 240 / 240 Output Total 1900 / 1900 1800 / 3700 Balance -1390 / -860 -1650 / -2510 240 / 240 Weight last 48 hrs Weight 211 lb 4.8 oz Weight 216 lb Weight 217 lb 1.6 oz Physical Exam Narrative: EXAM NARRATIVE: GENERAL: The patient is alert and oriented times two. Not in any acute distress. HEENT: Moderate pallor, no icterus or lymphadenopathy. The pupils are reactant to light. Oral cavity: There are no mucous membrane lesions. NECK: Trachea appears to be central. No masses noted. No JVD or thyromegaly appreciated. Carotid bruit bilaterally RESPIRATORY: Chest is symmetrical. No intercostals muscle retraction or any accessory muscle activation. There is no chest wall tenderness. Breath sounds are heard bilaterally. Scattered fine and coarse crackles bilaterally with no consolidation findings BREASTS: Deferred. HEART: The PMI could not be palpated. No palpable precordial events. S1 and S2 are normal. No S3 or S4 heard. No pericardial rub or any click heard. ABDOMEN: No vessel pulsations or distention. No tenderness. No organomegaly appreciated. No abdominal bruit. Bowel sounds are normally heard. : Deferred. RECTAL: Deferred. LYMPHATIC: No lymphadenopathy noted in the neck . EXTREMITIES: No edema or cyanosis. No clubbing. The dorsalis pedis and posterior pulses are weak bilaterally. Patient has extensive ecchymosis in the right knee and the anterior part of the leg MUSCULOSKELETAL: No acute joint deformities or swelling SKIN: There are no significant scars or skin rash noted. NEUROPSYCHIATRIC: The patient is alert and oriented x2. Appears to be in a good mood. Answers appropriately. Very poor historian. hard of hearing. No tremors or rigidity noted. Data Micro: Micro: Microbiology 09/29/19 01:05 Gram Stain - Final Sputum - Expector ated Sputum Sputum Culture - F inal 09/30/19 08:40 Blood Culture - Pr eliminary Blood NEGATIVE TO TATO E 09/30/19 08:40 Blood Culture - Pr eliminary Blood NEGATIVE TO TATO E EKG^: EKG 1: My Interpretation: The EKG revealed a sinus tachycardia with right bundle branch block. Left axis deviation. Diffuse nonspecific ST-T changes Prior ECG tracings: available for review (No new changes compared to the previous EKG) A&P Assessment and plan (1) NSTEMI (non-ST elevated myocardial infarction): Patient has clinical features of non-ST elevation myocardial infarction. Hemodynamically seems to be stable. EKG shows persistent nonspecific ST-T changes. He had an episode of chest pain yesterday, according to the nurses report. Denies any chest pain today. The troponin T has been trending upwards. In view of the patient's anemia, history of cirrhosis of the liver and renal failure, he carries a high risk for bleed. So at this point, it may be appropriate to continue on the baby aspirin. Patient is undecided about undergoing further cardiac work-up. He is going to discuss this with his today. Will let us know. Status: Acute Code(s): I21.4 - Non-ST elevation (NSTEMI) myocardial infarction (2) Pulmonary edema: The pulmonary edema seems to have resolved. Careful diuresis may be continued. A limited 2D echocardiogram would be appropriate to reevaluate the LV function. Patient's LV ejection fraction was within normal limits in Aug. Status: Acute Qualifiers: Chronicity: acute Qualified Code(s): J81.0 - Acute pulmonary edema Code(s): J81.1 - Chronic pulmonary edema (3) Acute respiratory failure with hypoxia: Respiratory status seems to be improving. Management as per the primary/pulmonary service Status: Acute Code(s): J96.01 - Acute respiratory failure with hypoxia (4) HTN (hypertension): Patient has a fluctuating systolic blood pressure. Most of the times, it seems to be in the normal range. Today the blood pressure is a stage II. Consider antihypertensive medication, if the blood pressure stays elevated Status: Acute Code(s): I10 - Essential (primary) hypertension (5) Anemia: Etiology of the anemia is not clear. This could be multifactorial. 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
[2019-10-02] MEDS: ondansetron 2 mg/ML SDV 2 mL 4 MG IVP (16:21)
--- NOTE | 2019-10-02 17:25 | PC.NURSE ---
Pt transferred to second floor at 1650 via w/c. with accompanied. Belongings sent with pt. Report given to nurse Maki.
[2019-10-02 17:31] LABS: Glucose Point of Care 202 mg/dL (70-110)
[2019-10-02 21:42] LABS: Glucose Point of Care 237 mg/dL (70-110)
[2019-10-02] MEDS: allopurinol 300 mg Tablet PO (21:46)
[2019-10-02] MEDS: enoxaparin 40 mg/0.4 mL Syringe SUBCUT (21:46)
[2019-10-02] MEDS: PARoxetine 20 mg Tablet 40 MG PO (21:47)
[2019-10-02] MEDS: insulin glargine 100 units/1 mL 46 UNIT SUBCUT (21:47)
[2019-10-02] MEDS: amlodipine 10 mg Tablet PO (21:47)
[2019-10-03] VITALS (18 sets, daily range): BP systolic 96–146; BP diastolic 57–78; PULSE 76–87; RESP 16–20; TEMP 36.4–37.3; O2SAT 92–97
[2019-10-03] MEDS: ipratropium-albuterol 3 mL Neb INHALATION ×7 (02:47→23:18)
[2019-10-03 04:55] LABS: Basophils % 0.6 %; Eosinophils # 0.4 10^3/uL (0.0-0.8); Eosinophils % 6.8 %; Hematocrit 29.4 % (42.0-52.0); Hemoglobin 9.3 g/dL (11.7-16.6); Lymphocytes # 1.7 10^3/uL (0.8-4.8); Mean Corpuscular HGB Conc 31.6 g/dL (30.0-36.0); Mean Corpuscular Volume 85.2 fL (80-94); Mean Platelet Volume 10.6 fL (7.4-10.4); Monocytes # 0.8 10^3/uL (0.2-0.9); Neutrophils # 2.4 10^3/uL (1.8-7.7); Neutrophils % 44.9 %; Nucleated Red Blood Cells % 0 %; Platelet Count 146 10^3/cmm (130-400); Red Blood Count 3.45 10^6/uL (4.1-5.3); Red Cell Distribution Width 14.6 % (12.1-15.1); White Blood Count 5.4 10^3/uL (4.0-10.0)
[2019-10-03 05:09] LABS: Anion Gap 17.7 (5-19); Blood Urea Nitrogen 61 mg/dL (8-23); Calcium 9.5 mg/Dl (8.8-10.2); Carbon Dioxide 26 mmol/L (22-29); Chloride 91 mmol/L (98-107); Glucose 152 mg/dL (74-106); Potassium 3.7 mmol/L (3.5-5.1); Sodium 131 mmol/L (136-145)
[2019-10-03 07:00] LABS: Glucose Point of Care 146 mg/dL (70-110)
[2019-10-03] MEDS: budesonide 0.5 mg/2 mL Neb INHALATION ×2 (07:25→20:27)
[2019-10-03] MEDS: propranolol 20 mg Tablet PO ×2 (08:49→17:20)
[2019-10-03] MEDS: aspirin 81 mg EC Tablet PO (08:49)
[2019-10-03] MEDS: pantoprazole DR 40 mg Tablet PO (08:49)
[2019-10-03] MEDS: FUROsemide 40 mg Tablet PO (08:49)
[2019-10-03] MEDS: azithromycin 250 mg Tablet 500 MG PO (08:49)
[2019-10-03] MEDS: spironolactone 25 mg Tablet 50 MG PO ×2 (08:49→17:20)
[2019-10-03] MEDS: lidocaine 5% Patch 1 PATCH TOPICAL (08:58)
--- NOTE | 2019-10-03 11:29 | PM.PN ---
Subjective Subjective: Interval history: AM labs noted, had 600 mL urine output overnight. Improved hemoglobin, worsening renal function. Had 6 bowel movements yesterday. Had a long discussion with patient and at bedside, it seems that patient's appetite has been diminished and is quite concerned about this. He just does not feel like anything tastes good. Discussed further cardiology evaluation including possible angiogram, they would like to discuss this further with Dr. Silva tomorrow. Seems more alert and has been a little bit more ambulatory today. Medications: Reviewed: Yes Medication Review Details: Active Medications Generic Name Dose Route Start Last Admin Trade Name Freq PRN Reason Stop Dose Admin Acetaminophen 650 mg 09/28/19 10:46 09/30/19 17:51 Tylenol PO 650 mg Q6H PRN Administration Mild/Mod Pain Or Temp >/= 101 Albuterol Sulfate 2.5 mg 09/28/19 20:30 09/29/19 16:23 Albuterol INHALATION 2.5 mg Q4H.RESPIRATORY P RN Administration Shortness Of Stefani th Albuterol/Ipratrop ium 3 ml 09/29/19 20:00 10/03/19 11:20 Duoneb INHALATION 3 ml Q4H.RESPIRATORY S CH Administration Allopurinol 300 mg 09/28/19 21:00 10/02/19 21:46 Zyloprim PO 300 mg BEDTIME [place] Administration Amlodipine Besylat e 10 mg 09/28/19 21:00 10/02/19 21:47 Norvasc PO 10 mg BEDTIME [place] Administration Amoxicillin/Clavul anate Potassium 1 tab 10/03/19 11:30 Augmentin 875-12 5 Mg PO BID [place] Protocol Aspirin 81 mg 09/29/19 09:00 10/03/19 08:49 Aspirin Ec PO 81 mg DAILY [place] Administration Azithromycin 500 mg 09/30/19 09:45 10/03/19 08:49 Zithromax PO 500 mg DAILY [place] Administration Protocol Budesonide 0.5 mg 09/29/19 20:00 10/03/19 07:25 Pulmicort INHALATION 0.5 mg BID.RESPIRATORY S CH Administration Dextrose 25 ml 09/28/19 19:52 D50w IVP ONCE PRN hypoglycemia prot ocol Protocol Dextrose 50 ml 09/28/19 19:52 D50w IVP PRN PRN hypoglycemia prot ocol Protocol Enoxaparin Sodium 40 mg 09/28/19 20:30 10/02/19 21:46 Lovenox SUBCUT 40 mg Q24H [place] Administration Fluticasone Propio theodora 1 spray 09/28/19 19:49 Flonase INTRANASAL DAILY PRN unknown Furosemide 40 mg 10/03/19 08:00 10/03/19 08:49 Lasix PO 40 mg DAILY@0800 [place] Administration Gabapentin 100 mg 09/29/19 06:00 09/30/19 06:43 Neurontin PO 100 mg QAM [place] Administration Gabapentin 300 mg 09/28/19 21:00 09/29/19 22:29 Neurontin PO 300 mg BEDTIME [place] Administration Glucagon 1 mg 09/28/19 19:52 Glucagen IM ONCE PRN Adult Acute Hypog lycemia Prot. Protocol Dextrose 500 mls @ 100 mls /hr 09/28/19 19:52 D5w IV ONCE PRN Adult Acute Hypog lycemia Prot Protocol Insulin Aspart 0 unit 09/30/19 21:00 10/02/19 21:48 Novolog SUBCUT 3 unit BEDTIME [place] Administration Protocol Insulin Aspart 0 unit 09/30/19 12:00 10/03/19 08:58 Novolog SUBCUT 2 unit TIDWM [place] Administration Protocol Insulin Glargine 46 unit 09/28/19 21:00 10/02/19 21:47 Lantus SUBCUT 46 unit BEDTIME [place] Administration Lidocaine 1 patch 10/01/19 21:00 10/03/19 08:58 Lidoderm 5% Patc h TOPICAL 1 patch [id number] [place] Administration Nitroglycerin 0.4 mg 09/29/19 16:21 09/29/19 16:41 Nitrostat SUBLINGUAL 1 tab Q5M PRN Administration CHEST PAIN Non-Formulary 1 each 10/02/19 21:00 10/02/19 21:52 Medication- PO Not Given Pravastatin 10mg BEDTIME [place] Ondansetron HCl 4 mg 09/28/19 10:46 10/02/19 16:21 Zofran IVP 4 mg Q6H PRN Administration NAUSEA AND VOMITI NG Pantoprazole Sodiu m 40 mg 09/29/19 09:00 10/03/19 08:49 Protonix PO 40 mg DAILY [place] Administration Paroxetine HCl 40 mg 09/28/19 21:00 10/02/19 21:47 Paxil PO 40 mg BEDTIME [place] Administration Propranolol HCl 20 mg 09/29/19 09:00 10/03/19 08:49 Inderal PO 20 mg BID [place] Administration Fluticasone/Salmet tiffany 1 puff 09/29/19 10:35 09/29/19 20:20 Advair Diskus 50 0-50 INHALATION 1 puff BID.RESPIRATORY S CH Administration Spironolactone 50 mg 10/01/19 18:00 10/03/19 08:49 Aldactone PO 50 mg BID [place] Administration Trazodone HCl 50 mg 09/28/19 21:00 09/29/19 22:32 Desyrel PO 50 mg BEDTIME [place] Administration lisinopril Allergy (Verified 09/28/19 10:46) ALGY-Rash tizanidine Allergy (Verified 09/28/19 10:46) Unknown Vitals/I&O/Wt Last Vital Signs Temp 97.5 F L 10/03/19 11:00 Pulse 87 10/03/19 11:00 Resp 20 H 10/03/19 11:00 BP 123/68 10/03/19 11:00 Pulse Ox 97 10/03/19 11:00 10/02/19 10/03/19 10/03/19 22:59 06:59 14:59 Intake Total 454 / 814 360 / 360 Output Total 600 / 600 Balance 454 / 814 -600 / 214 360 / 360 Weight last 48 hrs Weight 99.989 kg Weight 95.844 kg Physical Exam Const: COMMON NORMALS: no apparent distress and oriented x3 GENERAL APPEARANCE: cooperative and comfortable NUTRITIONAL APPEARANCE: obese centrally obese ORIENTATION/CONSCIOUSNESS: Yes awake HENMT: COMMON NORMALS: normocephalic, head/scalp atraumatic, hearing grossly normal bilaterally and moist oral mucous membranes HEAD & SCALP: normocephalic and atraumatic GENERAL EAR: hearing grossly impaired Laterality: bilateral TEETH & GINGIVA: Yes edentulous Eye: COMMON NORMALS: PERRL, EOMs intact bilaterally and conjunctivae normal CONJUNCTIVA: Yes conjunctivae normal PUPIL: Yes PERRL Neck/C-Spine: COMMON NORMALS: full ROM GENERAL: Yes normal visual inspection and Yes trachea midline Resp: COMMON NORMALS: normal respiratory effort, no retractions and no use of accessory muscles EFFORT & INSPECTION: Yes able to speak in complete sentences, Yes symmetric chest movement and No tachypneic AUSCULTATION: no rales, no rhonchi and diminished lung sounds bilateral Cardio: COMMON NORMALS: regular rate, regular rhythm, S1 normal heart sound, S2 normal heart sound and no murmurs RATE: regular rate RHYTHM: regular rhythm HEART SOUNDS: S1 normal and S2 normal GI: COMMON NORMALS: normal to inspection, nondistended, normoactive bowel sounds, soft to palpation and non-tender PALPATION: Yes soft : BLADDER/KIDNEY EXAM: Yes catheter in place Extremity: COMMON NORMALS: normal to inspection, full ROM and no clubbing, cyanosis or edema; negative for no pedal edema Neuro: COMMON NORMALS: oriented x3, moves all extremities, no focal motor deficits and no sensory deficits noted Psych: COMMON NORMALS: mental status grossly normal, thought process normal, cooperative, affect normal and speech normal SPEECH: Yes normal speech THOUGHT PROCESS: normal thought process Skin: COMMON NORMALS: no jaundice, no petechiae and no mottling GENERAL SKIN EXAM: ecchymosis (around R knee joint) Urinary Catheter Management^: Pablo: Cath Placed During This Visit: no A&P Assessment and plan (1) Pneumonia: -Has noted prior history of aspiration pneumonia which cannot be excluded during this admission as well -Repeat imaging noted and unchanged -afebrile, no leukocytosis -Zosyn discontinued. Continue oral azithromycin and Augmentin per Dr. Kumar's recommendations -Appreciate pulmonology consult by Dr. Kumar -Aspiration precautions, supplemental oxygen, BiPAP as needed Status: Acute Qualifiers: Laterality: right Lung location: lower lobe of lung Pneumonia type: due to unspecified organism Qualified Code(s): J18.9 - Pneumonia, unspecified organism Code(s): J18.9 - Pneumonia, unspecified organism (2) Colitis: -Noted evidence of ascending colitis on imaging; C. difficile negative -Continue antibiotics -Has had several bowel movements during this admission Status: Acute Code(s): K52.9 - Noninfective gastroenteritis and colitis, unspecified (3) NSTEMI (non-ST elevated myocardial infarction): -Noted elevated troponins, likely type II NSTEMI secondary to acute fluid overload and acute infection -Appreciate cardiology consult -Limited echo done, report pending -had dobutamine stress test done in 06/2019 showing myocardial scarring in RCA distribution with very small areas of stephan-infarction ischemia, no wall motion abnormalities noted -Continue to monitor vital signs -Telemetry monitoring -Dr. Castillo discussed possibility of further workup with the patient including angiogram. not present during discussion, will f/u Status: Acute Code(s): I21.4 - Non-ST elevation (NSTEMI) myocardial infarction (4) Fluid overload: -Fluid overload secondary to acute exacerbation of chronic diastolic CHF; BNP greater than 12,000; as well as liver cirrhosis -Seems clinically compensated -off IV diuresis, on oral Lasix, continue Aldactone. Metolazone was discontinued -Continue to monitor urine output, fluid balance is currently -4 L -Supplemental oxygen as needed, continue to monitor respiratory status -Continue to monitor vital signs -By bedside ultrasound done by Dr. 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 Noted worsening renal function today. Repeat labs in AM -Depression, insomnia -Bilateral carotid artery stenosis s/p L CEA with patch angioplasty (04/2019); Follows up with vascular surgery in [place]. -Chronic normocytic anemia; likely multifactorial given underlying chronic kidney disease, liver cirrhosis and iron deficiency. Has had bleeding varices in the past and had banding done. Protein electrophoresis showed polyclonal gammopathy. Baseline hemoglobin appears to be 10-11. Current hemoglobin is below his baseline, will need to continue to trend this closely. -Chronic back pain, DJD -GI ppx with PPI -DVT ppx with lovenox -Dispo: home -Code status: FULL code Attestations Medical Necessity Statement*: Patient requires hospitalization for continued management of NSTEMI pending decision on further management, and acute renal impairment with need for continued monitoring of renal function. Coding Level of Care Code Acute Client Technical Support Associate for [facility] Fwd Exam Problem Focused Diagnoses Pneumonia J18.9 Laterality: right Lung location: lower lobe of lung Pneumonia type: due to unspecified organism Colitis K52.9 NSTEMI (non-ST elevated myocardial infarction) I21.4 Fluid overload E87.70 Hypervolemia type: unspecified
[2019-10-03 11:58] LABS: Glucose Point of Care 238 mg/dL (70-110)
[2019-10-03] MEDS: amoxicillin-clav 875-125 mg Tablet 1 TAB PO ×2 (12:07→17:20)
[2019-10-03] MEDS: ondansetron 2 mg/ML SDV 2 mL 4 MG IVP ×2 (12:12→20:45)
--- NOTE | 2019-10-03 13:40 | P.PN_ITS ---
Subjective Subjective: Interval history: Cardiology coverage Patient admitted to hospital with shortness of breath, altered mental status. He had features of COPD exacerbation, possible acute heart failure and pneumonia. His overall status is improving. He had elevated troponin T. He also was found to be anemic and abnormal kidney function. He has a history of cirrhosis of the liver. He is a very poor historian. He had a recent fall, sustaining contusion of the lower extremities. He has no document history for coronary artery disease . Currently he denies any chest pain or palpitation. He is feeling better today . Still has the feeling of weakness and fatigue. His has concerns about further management, especially with respect to his cardiac status. Medications: Reviewed: Yes Vitals/I&O/Wt Last Vital Signs Temp 97.5 F L 10/03/19 11:00 Pulse 84 10/03/19 11:31 Resp 16 10/03/19 11:31 BP 123/68 10/03/19 11:00 Pulse Ox 96 10/03/19 11:31 10/02/19 10/03/19 10/03/19 22:59 06:59 14:59 Intake Total 454 / 814 360 / 360 Output Total 600 / 600 Balance 454 / 814 -600 / 214 360 / 360 Weight last 48 hrs Weight 220 lb 7 oz Weight 211 lb 4.8 oz Physical Exam Narrative: EXAM NARRATIVE: GENERAL: The patient is alert and oriented times two. Not in any acute distress. HEENT: Moderate pallor, no icterus or lymphadenopathy. The pupils are reacting to light. Oral cavity: There are no mucous membrane lesions. NECK: Trachea appears to be central. No masses noted. No JVD or thyromegaly appreciated. Carotid bruit bilaterally RESPIRATORY: Chest is symmetrical. No intercostals muscle retraction or any accessory muscle activation. There is no chest wall tenderness. Breath sounds are heard bilaterally. Scattered fine and coarse crackles bilaterally with no consolidation findings BREASTS: Deferred. HEART: The PMI could not be palpated. No palpable precordial events. S1 and S2 are normal. No S3 or S4 heard. No pericardial rub or any click heard. ABDOMEN: No vessel pulsations or distention. No tenderness. No organomegaly appreciated. No abdominal bruit. Bowel sounds are normally heard. : Deferred. RECTAL: Deferred. LYMPHATIC: No lymphadenopathy noted in the neck . EXTREMITIES: No edema or cyanosis. No clubbing. The dorsalis pedis and posterior pulses are weak bilaterally. Patient has extensive ecchymosis in the right knee and the anterior part of the leg MUSCULOSKELETAL: No acute joint deformities or swelling SKIN: There are no significant scars or skin rash noted. NEUROPSYCHIATRIC: The patient is alert and oriented x2. Appears to be in a good mood. Answers appropriately. Very poor historian. hard of hearing. No tremors or rigidity noted. Urinary Catheter Management^: Pablo: Cath Placed During This Visit: no Data Labs: Other Labs: Hemoglobin has improved since 10/01/2019. The BUN and creatinine are going up A&P Assessment and plan (1) NSTEMI (non-ST elevated myocardial infarction): Patient has clinical features of non-ST elevation myocardial infarction. Hemodynamically seems to be stable. EKG shows persistent nonspecific ST-T changes. He had an episode of chest pain yesterday, according to the nurses report. Denies any chest pain today. The troponin T has been trending upwards. In view of the patient's anemia, history of cirrhosis of the liver and renal failure, he carries a high risk for bleed. So at this point, it may be appropriate to continue on the baby aspirin. The would like him to go through the coronary angiogram, if it is appropriate. But this needs to be discussed in a multidisciplinary setting, in view of his multi system involvement and a final decision may be made afterwards Status: Acute Code(s): I21.4 - Non-ST elevation (NSTEMI) myocardial infarction (2) Pulmonary edema: The pulmonary edema seems to have resolved. Careful diuresis may be continued. A limited 2D echocardiogram would be appropriate to reevaluate the LV function. Patient's LV ejection fraction was within normal limits in Aug. May continue on the current medication for the time being. The dose of Lasix need to be adjusted Status: Acute Qualifiers: Chronicity: acute Qualified Code(s): J81.0 - Acute pulmonary edema Code(s): J81.1 - Chronic pulmonary edema (3) Acute respiratory failure with hypoxia: Respiratory status seems to be improving. Management as per the primary/pulmonary service Status: Acute Code(s): J96.01 - Acute respiratory failure with hypoxia (4) HTN (hypertension): Patient has a fluctuating systolic blood pressure. Most of the times, it seems to be in the normal range. Today the blood pressure is a stage II. Consider antihypertensive medication, if the blood pressure stays elevated Status: Acute Code(s): I10 - Essential (primary) hypertension (5) Anemia: The hemoglobin seems to be stable at this time. May continue monitoring. Status: Acute Code(s): D64.9 - Anemia, unspecified Additional A&P Information Additional A&P Information: Acute kidney injury * Continue to call closely monitor renal function. Attestations Medical Necessity Statement*: Defer to the primary Coding Level of Care Code Acute Student Officer for [facility] Fwd Diagnoses NSTEMI (non-ST elevated myocardial infarction) I21.4 Pulmonary edema J81.0 Chronicity: acute Acute respiratory failure with hypoxia J96.01 HTN (hypertension) I10 Anemia D64.9
--- NOTE | 2019-10-03 13:49 | PC.CHAP ---
Pastoral Care Encounter/Spiritual Assessment Type of Contact [] Declined live hanger visit [] Patient/Family/Request visit [] Outpatient visit [] Follow-up visit [] Physician referral [] Code/Alert [x] Routine visit [] Staff referral [] Actively dying [x] Patient sleeping [] Family support [] [] Out of room [] Palliative care [] [] Receiving care in room [] Pre-surgical visit [] Trauma [] Long length of stay [] ICU visit [] Other: Relational/Emotional Strength [] Patient feels connected with others/family/visitors/staff [] Distress [] Loneliness/isolation [] Abandonment Spirituality of Patient [] Person of Mayra [] Attends Spiritism of their Mayra [] Believes in Prayer [] Reads Bible or Mormonism materials [] There are Spiritual issues to be addressed Structural Steel Engineer Interventions [] Prayer [] Active listening [] Non-anxious presence [] Spiritual/emotional support [] Crisis/trauma care [] Spiritual counseling [] Bereavement support [] Provided bereavement packet [] Provided Bible/devotional materials [] Provided toy/stuffed animal, coloring book to patient or family member [] Completed spiritual assessment [] Provided Communion [] Anointing/[place] [] Salvation [] Other: Impact on Illness or Injury [] Angry [] Fearful [] Anxious [] Often cries [] Exhaustion [] Unable to work [] Unable to attend orthodoxy [] Unable to walk/stand [] Unable to read [] Unable to drive [] Unable to eat/drink [] Unable to sleep [] Unable to be with family [] Other: Summary patient was sleeping, Structural Steel Engineer will revisit. Time spent with patient 3 min/
[2019-10-03 16:43] LABS: Glucose Point of Care 165 mg/dL (70-110)
--- NOTE | 2019-10-03 18:16 | DCPLANNER ---
Pg 2 of IM updated and reviewed with Pt. No questions, copy provided.
--- NOTE | 2019-10-03 19:10 | PC.NURSE ---
Introduction of staff and report received, aidet.
[2019-10-03] MEDS: allopurinol 300 mg Tablet PO (20:27)
[2019-10-03] MEDS: PARoxetine 20 mg Tablet 40 MG PO (20:27)
[2019-10-03] MEDS: enoxaparin 40 mg/0.4 mL Syringe SUBCUT (20:27)
[2019-10-03] MEDS: amlodipine 10 mg Tablet PO (20:27)
[2019-10-03] MEDS: insulin glargine 100 units/1 mL 46 UNIT SUBCUT (20:29)
[2019-10-03 22:04] LABS: Glucose Point of Care 273 mg/dL (70-110)
[2019-10-04] VITALS (9 sets, daily range): BP systolic 102–132; BP diastolic 55–70; PULSE 72–91; RESP 18–22; TEMP 36.3–36.7; O2SAT 94–99
[2019-10-04 06:39] LABS: Anion Gap 17.8 (5-19); Blood Urea Nitrogen 64 mg/dL (8-23); Carbon Dioxide 26 mmol/L (22-29); Chloride 93 mmol/L (98-107); Glucose 199 mg/dL (74-106); Potassium 3.8 mmol/L (3.5-5.1); Sodium 133 mmol/L (136-145)
[2019-10-04 07:08] LABS: Glucose Point of Care 173 mg/dL (70-110)
--- NOTE | 2019-10-04 08:11 | PM.PN ---
Subjective Subjective: Interval history: The patient states that he is feeling like he is doing up with fluid in his lungs. The patient and I had a lengthy discussion regarding his wishes, and at this point he is strongly considering hospice care. The patient brought this subject up. He states that with the multiple medical issues that he is having, he feels that he may be prolonging the inevitable. Vitals/I&O/Wt Last Vital Signs Temp 97.9 F 10/04/19 07:00 Pulse 79 10/04/19 07:00 Resp 18 10/04/19 07:00 BP 102/65 10/04/19 07:00 Pulse Ox 96 10/04/19 07:00 10/03/19 10/04/19 10/04/19 22:59 06:59 14:59 Intake Total 480 / 1200 220 / 220 Output Total 1000 / 1000 700 / 1700 Balance -520 / 200 -700 / -500 220 / 220 Weight last 48 hrs Weight 98.458 kg Weight 99.989 kg Physical Exam Narrative: EXAM NARRATIVE: General: Alert and oriented x3 Cardiac: Regular rate and rhythm without murmurs Lungs: Mild wheezing present. Crackles present at the bases. Scattered rhonchi. Abdomen: Soft, nontender, no rebound tenderness. Extremities: Trace edema in the bilateral lower extremities Urinary Catheter Management^: Pablo: Cath Placed During This Visit: no A&P Additional A&P Information Additional A&P Information: 1. Pneumonia: The patient has been switched to Augmentin. His respiratory status is improving gradually. This will be continued as an outpatient. 2. COPD (chronic obstructive pulmonary disease): Patient has some wheezing, however it is not significant at this time. Continue with respiratory therapy. 3. Anemia: His hemoglobin has improved significantly. This was likely dilutional. 4. Diabetes: Insulin sliding scale and Levemir. 5. HTN (hypertension): Stable for now 6. Fluid overload: I will give Lasix 60 mg IV twice a day to help decrease his overall fluid overload. 7. Altered mental status -this had improved with the above treatments. 8. NSTEMI -the patient is improving from this and currently is without chest pain. 9. Diarrhea with ascending colitis -the patient no longer has abdominal pain, however continues to have diarrhea. It is gradually improving. 10. Liver cirrhosis - The majority of his fluid overload is likely secondary to this. 11. Prophylaxis -currently the patient is on Lovenox, however we will need to watch for bleeding signs. 12. The patient is considering hospice care secondary to multiple chronic medical issues that are gradually worsening. He will discuss this with the hospital and his . Attestations Medical Necessity Statement*: The patient continues need inpatient medical care for treatment as he decides on hospice care. Coding Level of Care Code Acute Environmental Research Scientist for Felipa Feng
[2019-10-04] MEDS: FUROsemide 10 mg/mL SDV 10mL 60 MG IVP ×2 (08:36→22:07)
[2019-10-04] MEDS: pantoprazole DR 40 mg Tablet PO (08:37)
[2019-10-04] MEDS: propranolol 20 mg Tablet PO ×2 (08:37→18:25)
[2019-10-04] MEDS: azithromycin 250 mg Tablet 500 MG PO (08:37)
[2019-10-04] MEDS: amoxicillin-clav 875-125 mg Tablet 1 TAB PO ×2 (08:37→18:25)
[2019-10-04] MEDS: aspirin 81 mg EC Tablet PO (08:37)
[2019-10-04] MEDS: spironolactone 25 mg Tablet 50 MG PO ×2 (08:37→18:25)
[2019-10-04] MEDS: lidocaine 5% Patch 1 PATCH TOPICAL (08:38)
[2019-10-04 11:57] LABS: Glucose Point of Care 202 mg/dL (70-110)
--- NOTE | 2019-10-04 12:23 | PC.PHAR ---
Lovenox dosing changed from 40mg Q24h to 30mg Q24h based on pt worsening renal function and crcl (23). Will continue to monitor and make changes when appropriate.
--- NOTE | 2019-10-04 12:43 | PM.PN ---
Subjective Subjective: Interval history: Mr. Brewer was seen and examined this morning. Over the weekend, he was transferred out of ICU to the regular floor. The patient's breathing has improved significantly. He was sitting having breakfast this morning. The patient did complain of some shortness of breath. His oxygen requirement has come down significantly. The pneumonia has improved significantly. The patient is well diuresed and tolerating spironolactone without any hyperkalemia. His hemodynamics are stable. His was not present at bedside this morning. He stated that she has a flu and she is at home. The patient stated that he is tired of doing all this and would like to go home and be on hospice if things get worse. Vitals/I&O/Wt Last Vital Signs Temp 97.6 F 10/04/19 11:00 Pulse 87 10/04/19 11:15 Resp 20 H 10/04/19 11:15 BP 130/70 10/04/19 11:00 Pulse Ox 98 10/04/19 11:15 10/03/19 10/04/19 10/04/19 22:59 06:59 14:59 Intake Total 480 / 1200 580 / 580 Output Total 1000 / 1000 700 / 1700 525 / 525 Balance -520 / 200 -700 / -500 55 / 55 Weight last 48 hrs Weight 217 lb 1 oz Weight 220 lb 7 oz Physical Exam Narrative: EXAM NARRATIVE: General: Patient is awake alert and oriented, in no significant distress. Neck: No JVD, no cervical or supraclavicular lymphadenopathy. Respiratory: Auscultation: Reduced breath sound bilaterally, crackles audible at the bases, no significant wheezing, occasional rhonchi Cardiovascular: Regular rate and rhythm, S1-S2 present, no murmur, no right ventricular heave, no significant peripheral edema. Abdomen: Soft, nontender, distended from obesity, positive bowel sound Musculoskeletal: No obvious joint deformity Skin: No rash, no evidence of erythema nodosum or multiforme. Neuro: Mental status is normal, no gross cranial nerve deficit, normal motor and coordination. Urinary Catheter Management^: Pablo: Cath Placed During This Visit: no Data Other Data: Other data: All data reviewed. A&P Assessment and plan (1) Acute respiratory failure with hypoxia: There is significant improvement in the patient respiratory status following diuresis. The patient will be on oral regimen of loop and aldosterone antagonist diuretic during discharge given his liver cirrhosis. Status: Acute Code(s): J96.01 - Acute respiratory failure with hypoxia (2) Fluid overload: The fluid overload has improved significantly. Status: Acute Qualifiers: Hypervolemia type: unspecified Qualified Code(s): E87.70 - Fluid overload, unspecified Code(s): E87.70 - Fluid overload, unspecified (3) Pneumonia: The patient most likely suffered from aspiration pneumonia in the setting of altered mental status from polypharmacy. There is no evidence of worsening pneumonia at this point. The patient can continue the Augmentin to complete a total 10-day course of antibiotic Status: Acute Qualifiers: Laterality: right Lung location: lower lobe of lung Pneumonia type: due to unspecified organism Qualified Code(s): J18.9 - Pneumonia, unspecified organism Code(s): J18.9 - Pneumonia, unspecified organism (4) COPD (chronic obstructive pulmonary disease): The patient is currently on DuoNeb and Pulmicort nebulizer. When he is discharged, he can go home on triple inhaler therapy. I do not have any pulmonary function test available to assess the lung function impairment from his COPD. The patient however stated that he would like to be on hospice if things get worse for him. He has fought it for a long time and would not want to do that anymore. I would be happy to take care of the patient as an outpatient. For now, I would sign off. Thank you for the consultation. Please call with any questions or concerns. Status: Acute Qualifiers: COPD type: unspecified COPD Qualified Code(s): J44.9 - Chronic obstructive pulmonary disease, unspecified Code(s): J44.9 - Chronic obstructive pulmonary disease, unspecified Attestations Medical Necessity Statement*: Will defer to the primary team Coding Level of Care Code Acute Finishing Frame Runner for [facility] Diagnoses Acute respiratory failure with hypoxia J96.01 Fluid overload E87.70 Hypervolemia type: unspecified Pneumonia J18.9 Laterality: right Lung location: lower lobe of lung Pneumonia type: due to unspecified organism COPD (chronic obstructive pulmonary disease) J44.9 COPD type: unspecified COPD
[2019-10-04 16:48] LABS: Glucose Point of Care 211 mg/dL (70-110)
--- NOTE | 2019-10-04 18:46 | PM.PN ---
Subjective Subjective: Interval history: Patient was transferred out of the unit over the weekend. No episodes of chest discomfort. Vitals/I&O/Wt Last Vital Signs Temp 97.4 F L 10/04/19 15:00 Pulse 78 10/04/19 15:00 Resp 18 10/04/19 15:00 BP 132/68 10/04/19 15:00 Pulse Ox 96 10/04/19 15:00 10/04/19 10/04/19 10/04/19 06:59 14:59 22:59 Intake Total 1060 / 1060 220 / 1280 Output Total 700 / 1700 525 / 525 Balance -700 / -500 535 / 535 220 / 755 Weight last 48 hrs Weight 217 lb 1 oz Weight 220 lb 7 oz Physical Exam Narrative: EXAM NARRATIVE: GENERAL: Averagely built and averagely nourished in no acute distress HEENT: Pupils equal round reactive to light. +pallor, no icterus. NECK: central trachea, no jugular venous distention. CARDIOVASCULAR SYSTEM: S1-S2 regular. No S3 or S4 present. No murmur rubs or gallops. RESPIRATORY SYSTEM: Chest clear to auscultation with reduced air entry bilaterally. Bilateral basal crackles ABDOMEN: Soft, nontender and nondistended. Normal bowel sounds present. EXTREMITIES: No cyanosis or clubbing. No edema. No signs of chronic venous insufficiency. BLUE SPLIT TRIMMER: Patient is alert oriented ?3. No focal neurological deficits. Urinary Catheter Management^: Pablo: Cath Placed During This Visit: no Data Labs: Other Labs: Echocardiogram CONCLUSIONS 1. This is a limited echo with ultrasound enhancing agent. 2. Normal left ventricular cavity size and systolic function. Left ventricular ejection fraction is estimated at 60 %. No diagnostic regional wall motion abnormality. 3. Normal right ventricular size and systolic function. 4. When compared to previous echocardiogram dated 08/27/2019, there may not have been any significant change. A&P Assessment and plan (1) NSTEMI (non-ST elevated myocardial infarction): Likely type II non-ST elevation [place] in setting of demand ischemia from hypoxic respiratory failure. -Continue aspirin and statin. Asymptomatic presently. -Normal echocardiogram with preserved left ventricular systolic function and no regional wall motion abnormality. -No indication for coronary angiogram presently. May consider at a later date. However given patient's anemia, renal failure, underlying liver cirrhosis with history of variceal bleeding as well as patient's discharge desire to be hospice; continue with medical management. -I will sign off. Follow-up in [facility] in 4-6 weeks if patient desires. Status: Acute Code(s): I21.4 - Non-ST elevation (NSTEMI) myocardial infarction (2) Pulmonary edema: Resolved. Status: Acute Qualifiers: Chronicity: acute Qualified Code(s): J81.0 - Acute pulmonary edema Code(s): J81.1 - Chronic pulmonary edema (3) Acute respiratory failure with hypoxia: Respiratory status has significantly improved. Status: Acute Code(s): J96.01 - Acute respiratory failure with hypoxia (4) HTN (hypertension): Blood pressure fairly controlled. Continue current medications. Status: Acute Code(s): I10 - Essential (primary) hypertension (5) Anemia: Hemoglobin stable. Status: Acute Code(s): D64.9 - Anemia, unspecified Additional A&P Information Acute kidney injury Continue to call closely monitor renal function. Attestations Medical Necessity Statement*: As per Dr. Silva. Coding Level of Care Code Acute Information Assurance Manager for [facility] Fwd Diagnoses NSTEMI (non-ST elevated myocardial infarction) I21.4 Pulmonary edema J81.0 Chronicity: acute Acute respiratory failure with hypoxia J96.01 HTN (hypertension) I10 Anemia D64.9
--- NOTE | 2019-10-04 19:04 | PC.NURSE ---
Introduction of staff and report received, aidet.
[2019-10-04] MEDS: ipratropium-albuterol 3 mL Neb INHALATION (20:17)
[2019-10-04] MEDS: budesonide 0.5 mg/2 mL Neb INHALATION (20:19)
[2019-10-04] MEDS: insulin glargine 100 units/1 mL 46 UNIT SUBCUT (21:42)
[2019-10-04] MEDS: amlodipine 10 mg Tablet PO (21:43)
[2019-10-04] MEDS: PARoxetine 20 mg Tablet 40 MG PO (21:43)
[2019-10-04] MEDS: allopurinol 300 mg Tablet PO (21:43)
[2019-10-04] MEDS: enoxaparin 30 mg/0.3 mL Syringe SUBCUT (21:44)
[2019-10-04 22:39] LABS: Glucose Point of Care 271 mg/dL (70-110)
[2019-10-05] VITALS (13 sets, daily range): BP systolic 96–146; BP diastolic 58–72; PULSE 71–88; RESP 18–20; TEMP 36.4–37.1; O2SAT 90–98
[2019-10-05] MEDS: ondansetron 2 mg/ML SDV 2 mL 4 MG IVP ×2 (04:05→14:48)
[2019-10-05 06:38] LABS: Glucose Point of Care 157 mg/dL (70-110)
[2019-10-05] MEDS: budesonide 0.5 mg/2 mL Neb INHALATION ×2 (07:22→20:26)
[2019-10-05] MEDS: ipratropium-albuterol 3 mL Neb INHALATION ×4 (07:22→20:26)
--- NOTE | 2019-10-05 08:07 | P.PN_ITS ---
Subjective Subjective: Interval history: The patient's breathing is improving with the IV Lasix. His cough is also improving. The patient's diarrhea is continuing, however slightly lessening. The patient is getting some appetite back. His has a temperature of 103 at home and is feeling ill. She is his primary caregiver at this time. They are continuing to work on plans for hospice. Vitals/I&O/Wt Last Vital Signs Temp 98.0 F 10/05/19 07:00 Pulse 83 10/05/19 07:28 Resp 18 10/05/19 07:24 BP 132/68 10/05/19 07:00 Pulse Ox 94 10/05/19 07:24 10/04/19 10/05/19 10/05/19 22:59 06:59 14:59 Intake Total 1020 / 2080 Balance 1020 / 1555 Weight last 48 hrs Weight 97.211 kg Weight 98.458 kg Physical Exam Narrative: EXAM NARRATIVE: General: Alert and oriented x3 Cardiac: Regular rate and rhythm without murmurs Lungs: Scattered wheezes and rhonchi with mild crackles in the bilateral bases Abdomen: Soft, nontender, distended with fluid present. Extremities: Trace edema in the bilateral lower extremities Urinary Catheter Management^: Pablo: Cath Placed During This Visit: no Data Micro: Micro: Microbiology 10/05/19 00:00 Occult Blood (FIT) - Final Stool - Stool Asp irate A&P Additional A&P Information 1. Pneumonia: The patient has been switched to Augmentin. His respiratory status is improving gradually. 2. COPD (chronic obstructive pulmonary disease): Patient has some wheezing, however it is not significant at this time. Continue with respiratory therapy. 3. Anemia: His hemoglobin has improved significantly. This was likely dilutional. 4. Diabetes: Insulin sliding scale and Levemir. 5. HTN (hypertension): Stable for now 6. Fluid overload: This is more stable at this time. 7. Altered mental status -this had improved with the above treatments. 8. NSTEMI -the patient is improving from this and currently is without chest pain. 9. Diarrhea with ascending colitis -the patient no longer has abdominal pain, however continues to have diarrhea. It is gradually improving. 10. Liver cirrhosis - The majority of his fluid overload is likely secondary to this. 11. Prophylaxis -currently the patient is on Lovenox, however we will need to watch for bleeding signs. 12. The patient is considering hospice care secondary to multiple chronic medical issues that are gradually worsening. They are continuing to work out the details of making this happen. Likely discharge home tomorrow if everything falls into place. Attestations Medical Necessity Statement*: The patient continues to need inpatient care as we work through the details of getting him home on hospice. He continues to need Lasix therapy for his breathing. Coding Level of Care Code Acute Billboard Erector Helper for [facility]
[2019-10-05] MEDS: spironolactone 25 mg Tablet 50 MG PO ×2 (08:24→18:07)
[2019-10-05] MEDS: propranolol 20 mg Tablet PO ×2 (08:24→18:07)
[2019-10-05] MEDS: aspirin 81 mg EC Tablet PO (08:24)
[2019-10-05] MEDS: lidocaine 5% Patch 1 PATCH TOPICAL (08:24)
[2019-10-05] MEDS: azithromycin 250 mg Tablet 500 MG PO (08:24)
[2019-10-05] MEDS: amoxicillin-clav 875-125 mg Tablet 1 TAB PO ×2 (08:25→18:07)
[2019-10-05] MEDS: pantoprazole DR 40 mg Tablet PO (08:25)
[2019-10-05] MEDS: FUROsemide 10 mg/mL SDV 10mL 60 MG IVP ×2 (10:31→21:41)
--- NOTE | 2019-10-05 10:34 | PC.SOCIAL ---
IMM Update Pg 2 of IMM given and explained to patient who voiced understanding. Copy provided and chart updated.
[2019-10-05 12:09] LABS: Glucose Point of Care 225 mg/dL (70-110)
[2019-10-05] MEDS: acetaminophen 325 mg Tablet 650 MG PO (14:48)
[2019-10-05 16:42] LABS: Glucose Point of Care 216 mg/dL (70-110)
--- NOTE | 2019-10-05 19:10 | PC.NURSE ---
Introduction of staff and report received, aidet.
[2019-10-05] MEDS: enoxaparin 30 mg/0.3 mL Syringe SUBCUT (20:07)
[2019-10-05] MEDS: gabapentin 300 mg Capsule PO (20:10)
[2019-10-05] MEDS: PARoxetine 20 mg Tablet 40 MG PO (20:10)
[2019-10-05] MEDS: allopurinol 300 mg Tablet PO (20:10)
[2019-10-05] MEDS: amlodipine 10 mg Tablet PO (20:10)
[2019-10-05] MEDS: trazodone 50 mg Tablet PO (20:10)
[2019-10-05 21:37] LABS: Glucose Point of Care 238 mg/dL (70-110)
[2019-10-05] MEDS: insulin glargine 100 units/1 mL 46 UNIT SUBCUT (22:07)
[2019-10-05 22:45] LABS: Alanine Aminotransferase 23 U/L (0-41); Albumin Level 3.8 g/dL (3.5-5.2); Alkaline Phosphatase 102 IU/L (40-130); Anion Gap 22.3 (5-19); Aspartate Amino Transferase 40 U/L (0-40); Blood Urea Nitrogen 62 mg/dL (8-23); Carbon Dioxide 20 mmol/L (22-29); Chloride 91 mmol/L (98-107); Globulin 3.1 g/dL (1.3-4.6); Glucose 233 mg/dL (74-106); Magnesium 1.6 mg/dL (1.7-2.3); Potassium 4.3 mmol/L (3.5-5.1); Sodium 129 mmol/L (136-145); Total Bilirubin 0.4 mg/dL (0.15-1.2); Total Protein 6.9 g/dL (6.6-8.7)
[2019-10-06 03:00] VITALS: BP 96/62; PULSE 76; RESP 18; TEMP 37; O2SAT 90
[2019-10-06] MEDS: acetaminophen 325 mg Tablet 650 MG PO (04:36)
[2019-10-06 06:09] LABS: Basophils % 0.3 %; Eosinophils # 0.2 10^3/uL (0.0-0.8); Eosinophils % 2.9 %; Hematocrit 25.5 % (42.0-52.0); Hemoglobin 8.2 g/dL (11.7-16.6); Lymphocytes # 2.2 10^3/uL (0.8-4.8); Lymphocytes % 29.5 %; Mean Corpuscular HGB Conc 32.2 g/dL (30.0-36.0); Mean Corpuscular Hemoglobin 26.8 pg (28.0-34.0); Mean Corpuscular Volume 83.3 fL (80-94); Mean Platelet Volume 11.1 fL (7.4-10.4); Monocytes % 13.3 %; Neutrophils # 3.7 10^3/uL (1.8-7.7); Neutrophils % 49.6 %; Nucleated Red Blood Cells % 0 %; Platelet Count 177 10^3/cmm (130-400); Red Blood Count 3.06 10^6/uL (4.1-5.3); Red Cell Distribution Width 14.6 % (12.1-15.1); White Blood Count 7.5 10^3/uL (4.0-10.0)
[2019-10-06 06:36] LABS: Alanine Aminotransferase 21 U/L (0-41); Albumin Level 3.9 g/dL (3.5-5.2); Alkaline Phosphatase 113 IU/L (40-130); Anion Gap 17.4 (5-19); Aspartate Amino Transferase 33 U/L (0-40); Blood Urea Nitrogen 72 mg/dL (8-23); Calcium 9.8 mg/Dl (8.8-10.2); Carbon Dioxide 25 mmol/L (22-29); Chloride 93 mmol/L (98-107); Globulin 3.5 g/dL (1.3-4.6); Glucose 152 mg/dL (74-106); Potassium 4.4 mmol/L (3.5-5.1); Sodium 131 mmol/L (136-145); Total Bilirubin 0.4 mg/dL (0.15-1.2); Total Protein 7.4 g/dL (6.6-8.7)
[2019-10-06 06:46] LABS: Glucose Point of Care 142 mg/dL (70-110)
[2019-10-06 07:00] VITALS: BP 110/64; PULSE 76; RESP 18; TEMP 36.7; O2SAT 96
[2019-10-06 07:25] VITALS: PULSE 77; RESP 16; O2SAT 94
[2019-10-06] MEDS: ipratropium-albuterol 3 mL Neb INHALATION (07:31)
[2019-10-06] MEDS: budesonide 0.5 mg/2 mL Neb INHALATION (07:32)
[2019-10-06] MEDS: amoxicillin-clav 875-125 mg Tablet 1 TAB PO (08:03)
[2019-10-06] MEDS: azithromycin 250 mg Tablet 500 MG PO (08:03)
[2019-10-06] MEDS: propranolol 20 mg Tablet PO (08:03)
[2019-10-06] MEDS: aspirin 81 mg EC Tablet PO (08:04)
[2019-10-06] MEDS: lidocaine 5% Patch 1 PATCH TOPICAL (08:04)
[2019-10-06] MEDS: spironolactone 25 mg Tablet 50 MG PO (08:04)
[2019-10-06] MEDS: pantoprazole DR 40 mg Tablet PO (08:04)
[2019-10-06] MEDS: FUROsemide 10 mg/mL SDV 10mL 60 MG IVP (08:36)
[2019-10-06] MEDS: gabapentin 100 mg Capsule PO (10:44)
[2019-10-06 11:04] VITALS: PULSE 77; RESP 16; O2SAT 94
--- NOTE | 2019-10-06 17:21 | P.DS_ITS ---
Discharge Providers Date of Admission: 09/28/19 14:14 Date of Discharge: 10/06/19 Attending Provider at Admission: Sae Silva MD Attending Provider at Discharge: Sae Silva MD Primary Care Provider: Sae Silva MD Diagnoses at Discharge Discharge Diagnosis (1) NSTEMI (non-ST elevated myocardial infarction): Status: Acute (2) Pulmonary edema: Status: Acute Problem details: Echocardiogram from 08/28/2019 normal left ventricular size and systolic function, EF 65% . No regional wall motion abnormalities. Mild left ventricular hypertrophy. Grade I/IV diastolic dysfunction (abnormal relaxation filling pattern), normal to mildly elevated filling pressures. Mildly increased left atrial size. Thickened mitral valve. Moderate mitral annular calcification. Features of the aortic valve sclerosis. Trace tricuspid valve regurgitation. There is no pericardial effusion. There are no intracardiac masses. Compared to the study from 12/03/2018, there may not be a significant change Qualifiers: Chronicity: acute Qualified Code(s): J81.0 - Acute pulmonary edema (3) Acute respiratory failure with hypoxia: Status: Acute (4) HTN (hypertension): Status: Acute (5) Anemia: Status: Inactive (6) Fluid overload: Status: Acute Qualifiers: Hypervolemia type: unspecified Qualified Code(s): E87.70 - Fluid overload, unspecified (7) COPD (chronic obstructive pulmonary disease): Status: Acute Qualifiers: COPD type: unspecified COPD Qualified Code(s): J44.9 - Chronic obstructive pulmonary disease, unspecified (8) Liver cirrhosis: Status: Acute (9) Diabetes: Status: Acute (10) Pneumonia: Status: Acute Qualifiers: Laterality: right Lung location: lower lobe of lung Pneumonia type: due to unspecified organism Qualified Code(s): J18.9 - Pneumonia, unspecified organism (11) Chronic kidney disease: Status: Acute Reason for Visit Reason for Visit: Reason For Visit: SHORTNESS OF BREATH Hospital Course Hospital Course: The patient was hospitalized with pneumonia and treated with IV antibiotics. He was initially showing signs of improvement, however again had significant fluid overload. The patient began to decompensate and was placed on BiPAP and given IV Lasix. The patient was transferred to the ICU secondary to worsening blood pressures, hypoxia, confusion and findings of a non-ST elevated [place]. The patient was evaluated by pulmonology and they assisted with Lasix therapy and BiPAP. He was evaluated by cardiology who felt that the underlying myocardial infarction was likely secondary to his respiratory and infection status. The patient did not receive an angiogram for this reason. The patient gradually improved and had continued IV Lasix therapy as well as Zosyn and eventually Augmentin for treatment of his pneumonia. Patient's creatinine though has continued to worsen with treatments and his hemoglobin has continued to be low. The patient has been in and out of the hospital frequently over the last few months and with the addition of cardiac and renal issues, he feels that continuing to do treatments for this and being in down to the hospital is unnecessary. The patient feels that he would prefer to go on hospice as his condition will only worsen with time. I had a lengthy discussion with the patient regarding this and he understands the outcome of this. At the time of discharge, I certify that the patient likely has less than 6 months to live without interventions. The patient will be discharged home with hospice. Patient is to follow-up with me in clinic next week and I certainly do not mind seeing him in clinic as needed and as able. All questions were answered and the patient and his are in agreement with the current plan of care. Physical Exam Narrative: EXAM NARRATIVE: General: Alert and oriented x3 Cardiac: Regular rate and rhythm without murmur. Distant heart sounds. Lungs: Occasional rhonchi and wheezes without crackles. Abdomen: Soft, nontender with distention noted. Extremities: +1 pitting edema in the bilateral lower extremities Urinary Catheter Management^: Pablo: Cath Placed During This Visit: no Discharge Data Data Completed and Pending: Completed Studies During Hospitalization Category Date Time Status CT abdomen wo con [id number] Urgent Cat Scan 09/30/19 09:[address] chest wo con 7 [id number] Routine Cat Scan 09/29/19 07:00 Completed XR chest 1V aniyah ble [id number] Routine Exams 10/01/19 11:06 Completed XR chest 1V aniyah ble [id number] Stat Exams 09/30/19 09:39 Completed XR chest 1V aniyah ble [id number] Urgent Exams 09/28/19 07:55 Completed CV echo lmt wo/w contras [id number] Rout ine Ultrasound 10/01/19 16:42 Completed US renal BI with bladder Routine Ultrasound 09/29/19 07:00 Completed US/CV paperwork R outine Ultrasound 10/01/19 Completed Labs from last 24 hours 10/06/19 10/06/19 10/06/19 06:28 05:43 05:43 WBC 7.5 RBC 3.06 L Hgb 8.2 L Hct 25.5 L MCV 83.3 MCH 26.8 L MCHC 32.2 RDW 14.6 Plt Count 177 MPV 11.1 H Neut % (Auto) 49.6 Lymph % (Auto) 29.5 [place] % (Auto) 13.3 Eos % (Auto) 2.9 Baso % (Auto) 0.3 Neut # (Auto) 3.7 Lymph # (Auto) 2.2 [place] # (Auto) 1.0 H Eos # (Auto) 0.2 Baso # (Auto) 0.0 Nucleated RBC % (a uto) 0 Nucleated RBCs # 0.0 Sodium 131 L Potassium 4.4 Chloride 93 L Carbon Dioxide 25 Anion Gap 17.4 BUN 72 H Creatinine 3.1 H Glucose 152 H POC Glucose 142 Calcium 9.8 Magnesium Total Bilirubin 0.4 AST 33 ALT 21 Alkaline Phosphata se 113 Total Protein 7.4 Albumin 3.9 Globulin 3.5 10/05/19 10/05/19 20:55 20:14 WBC RBC Hgb Hct MCV MCH MCHC RDW Plt Count MPV Neut % (Auto) Lymph % (Auto) [place] % (Auto) Eos % (Auto) Baso % (Auto) Neut # (Auto) Lymph # (Auto) [place] # (Auto) Eos # (Auto) Baso # (Auto) Nucleated RBC % (a uto) Nucleated RBCs # Sodium 129 L Potassium 4.3 Chloride 91 L Carbon Dioxide 20 L Anion Gap 22.3 H BUN 62 H Creatinine 2.6 H Glucose 233 H POC Glucose 238 Calcium 10.0 Magnesium 1.6 L Total Bilirubin 0.4 AST 40 ALT 23 Alkaline Phosphata se 102 Total Protein 6.9 Albumin 3.8 Globulin 3.1 Vitals: Last Vital Signs Temp 98.1 F 10/06/19 07:00 Pulse 77 10/06/19 11:04 Resp 16 10/06/19 11:04 BP 110/64 10/06/19 07:00 Pulse Ox 94 10/06/19 11:04 Discharge Plan Discharge Patient Disposition: Hospice - Home Condition: Stable Prescriptions: Continued furosemide [Lasix] 40 mg Tablet See Rx Instructions .ROUTE .COMPLEX RF: 0 albuterol sulfate 2.5 mg /3 mL (0.083 %) Solution For Nebulization 2.5 mg INHALATION Q4H PRN (Reason: Shortness Of Breath) RF: 0 trazodone 50 mg Tablet 50 mg PO BEDTIME RF: 0 amlodipine [Norvasc] 10 mg Tablet 10 mg PO BEDTIME RF: 0 pantoprazole [Protonix] 40 mg Tablet,Delayed Release (Dr/Ec) 40 mg PO DAILY RF: 0 allopurinol 300 mg Tablet 300 mg PO BEDTIME RF: 0 gabapentin 100 mg Capsule See Rx Instructions .ROUTE .COMPLEX RF: 0 albuterol sulfate [ProAir HFA] 90 mcg/actuation Hfa Aerosol Inhaler 2 puff INHALATION QID PRN (Reason: Shortness Of Breath) RF: 0 paroxetine HCl [Paxil] 40 mg Tablet 40 mg PO BEDTIME RF: 0 propranolol 20 mg Tablet 20 mg PO BID RF: 0 Novolog Flexpen U-100 Insulin 100 unit/mL (3 mL) Insulin Pen See Rx Instructions .ROUTE .COMPLEX RF: 0 Symbicort 160-4.5 mcg/actuation Hfa Aerosol Inhaler 2 puff INHALATION BID RF: 0 Lantus Solostar U-100 Insulin 100 unit/mL (3 mL) Insulin Pen 46 unit SUBCUT BEDTIME RF: 0 oxycodone 10 mg Tablet 5 mg PO BID PRN (Reason: Pain) RF: 0 Spiriva Respimat 2.5 mcg/actuation Mist 1 puff INHALATION DAILY RF: 0 potassium chloride 20 mEq Tablet Extended Release 20 meq PO DAILY RF: 0 Robaxin-750 500 mg PO BID PRN (Reason: Spasms) RF: 0 Discontinued multivitamin [Multiple Vitamins] Tablet 1 tab PO DAILY RF: 0 aspirin [Aspir-81] 81 mg Tablet,Delayed Release (Dr/Ec) 81 mg PO DAILY RF: 0 spironolactone 25 mg Tablet 25 mg PO DAILY RF: 0 pravastatin 10 mg Tablet 10 mg PO BEDTIME RF: 0 fluticasone propionate [Flonase Allergy Relief] 50 mcg/actuation Outing,Suspension 1 spray INTRANASAL DAILY PRN (Reason: unknown) RF: 0 Discharge Orders: Discharge Order (Routine); Ordered 10/06/19 Ordered By: Sae Silva Referrals: [facility] ([facility]) [Outside] Sae Silva MD [Primary Care Provider] - (You have an appointment with Dr. Silva on @ 1230pm.) Patient Instructions: Cirrhosis, COPD, Myocardial Infarction (DC), Viral Pneumonia (DC) Discharge Date/Time: 10/06/19 11:05 Discharge Attestations Time Spent in Discharge Care*: greater than 30 min Specific Discharge Activities: Specific discharge activities: educating and/or supporting family/caregiver, discussing with wildlife officer/social workers/dc planners, documenting/other paperwork and evaluating patient/reviewing data Status at Discharge: Cognitive status at discharge: cognitively intact , Behavioral status at discharge: cooperative , Quality Metrics Clinical Quality Measures During this hospital stay, did patient experience: AMI Clinical Trial Participant: No Contraindication to aspirin (AMI): Aspirin given Contraindication to statin: Other (Patient going to hospice care.) Coding Level of Care Code Acute Spike Machine Heater for [facility] Fwd Diagnoses NSTEMI (non-ST elevated myocardial infarction) I21.4 Pulmonary edema J81.0 Chronicity: acute Acute respiratory failure with hypoxia J96.01 HTN (hypertension) I10 Anemia D64.9 Fluid overload E87.70 Hypervolemia type: unspecified COPD (chronic obstructive pulmonary disease) J44.9 COPD type: unspecified COPD Liver cirrhosis K74.60 Diabetes E11.9 Pneumonia J18.9 Laterality: right Lung location: lower lobe of lung Pneumonia type: due to unspecified organism Chronic kidney disease N18.9
== END 2019-10-06 11:05 | disposition hospice, home (50) | DRG 193 ==
LOC: ER 11:09 → MEDSURG 14:16 → ICU 09-29 21:46 → MEDSURG 10-02 17:03
PROVIDERS: Family Medicine; Internal Medicine Critical Care Medicine; Physician Assistant; Admitting Provider Family Medicine; Emergency Provider Family Medicine; Family Provider Family Medicine; PCP Family Medicine; Visit Provider Family Medicine
DX: J18.9 Pneumonia, unspecified organism (principal); J96.01 Acute respiratory failure with hypoxia; I21.4 Non-ST elevation (NSTEMI) myocardial infarction; J44.0 Chronic obstructive pulmonary disease with (acute) lower respiratory infection; E11.22 Type 2 diabetes mellitus with diabetic chronic kidney disease; K74.60 Unspecified cirrhosis of liver; N18.9 Chronic kidney disease, unspecified; D64.9 Anemia, unspecified; I07.1 Rheumatic tricuspid insufficiency; K52.9 Noninfective gastroenteritis and colitis, unspecified; Z79.4 Long term (current) use of insulin; Z87.891 Personal history of nicotine dependence
CPT/HCPCS: 12345; 36415; 36416; 36600; 71045; 71250; 74150; 76770; 76857; 80048; 80051; 80053; 81003; 82140; 82274; 82805; 82810; 82962; 83605; 83735; 83880; 83986; 84100; 84145; 84484; 85025; 85610; 86141; 87040; 87070; 87205; 87493; 87641; 87804; 93005; 94640; 94660; 96372; 96374; 96375; 97161; 99221; 99282; C8924; J0456; J0696; J1650; J1815; J1940; J2405; J2543; J2930; J3370; J3475; J3490; J7030; J7050; J7611; J7626; Q0144; Q9956; Q9967